=== PATIENT | male | born 1935 | race Caucasian/White ===

== ENCOUNTER → 2022-10-23 10:30 | Outpatient (REF) | payer OTHER, SELFPAY | LOC: WOUND 10:30 | PROVIDERS: ATTENDING PHYSICIAN Surgery; REFERRING PHYSICIAN Family Medicine | DX: T81.31XA Disruption of external operation (surgical) wound, not elsewhere classified, initial encounter (principal); L97.812 Non-pressure chronic ulcer of other part of right lower leg with fat layer exposed; I87.2 Venous insufficiency (chronic) (peripheral); C44.712 Basal cell carcinoma of skin of right lower limb, including hip; L98.8 Other specified disorders of the skin and subcutaneous tissue; Z98.890 Other specified postprocedural states; Z79.01 Long term (current) use of anticoagulants; X58.XXXA Exposure to other specified factors, initial encounter | CPT/HCPCS: 97597; 99212 ==

== ENCOUNTER 2023-03-07 15:25 | Emergency (ER) | payer OTHER, SELFPAY ==
[2023-03-07 15:30] VITALS: BP 134/59
[2023-03-07 16:12] VITALS: BMI 36.5
[2023-03-07 16:19] LABS: % Basophils 0.5 % (0-2); % Eosinophils 2.4 % (0-6); % Immature Granulocytes 0.2 % (0-0.5); % Lymphocytes 31.8 % (20.5-51.1); % Monocytes 7.6 % (1.7-9.3); % Neutrophils 57.5 % (42.2-75.2); Absolute Eosinophils 0.2 10^3/uL (0-0.7); Absolute Lymphocytes 2.7 10^3/uL (1.2-3.4); Absolute Monocytes 0.6 10^3/uL (0.1-0.6); Absolute Neutrophils 4.9 10^3/uL (1.4-6.5); Hematocrit 38.1 % (39.0-52.0); Hemoglobin 12.9 g/dL (13.0-18.0); Mean Corp Hgb Conc. 33.9 g/dL (33.0-37.0); Mean Corpuscular Hgb 33.2 pg (27.0-31.0); Mean Corpuscular Volume 97.9 fL (80.0-94.0); Mean Platelet Volume 10.4 fL (7.4-10.4); Nucleated Red Blood Cells % 0 % (-); Platelet Count 141 10^3/uL (130-400); Red Blood Cell Count 3.89 10^6/uL (4.70-6.10); White Blood Cell Count 8.4 10^3/uL (4.8-10.8)
[2023-03-07 16:22] LABS: Erythrocyte Sed Rate 20 mm/hour (0-20)
[2023-03-07 16:35] LABS: ALT (SGPT) 31 U/L (0-50); AST (SGOT) 47 U/L (17-59); Albumin 3.8 g/dl (3.5-5.0); Alkaline Phosphatase 105 U/L (38-126); Blood Urea Nitrogen 17 mg/dl (9-20); Calcium 8.7 mg/dl (8.4-10.2); Carbon Dioxide 30 mmol/L (22-30); Chloride 96 mmol/L (98-107); Estimated Creatinine Clearance 102 ml/min; Glucose 140 mg/dl (70-99); Sodium 136 mmol/L (135-145); Total Bilirubin 0.8 mg/dl (0.2-1.3); eGFR > 60.00
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
== END 2023-03-07 18:28 | disposition home or self-care (01) ==
LOC: EMR 15:25
PROVIDERS: EMERGENCY PHYSICIAN Emergency Medicine; FAMILY PHYSICIAN Family Medicine
DX: H53.8 Other visual disturbances (principal); I48.91 Unspecified atrial fibrillation; I11.0 Hypertensive heart disease with heart failure; I50.9 Heart failure, unspecified; R40.0 Somnolence; I25.10 Atherosclerotic heart disease of native coronary artery without angina pectoris; E78.00 Pure hypercholesterolemia, unspecified; E03.9 Hypothyroidism, unspecified; V89.2XXA Person injured in unspecified motor-vehicle accident, traffic, initial encounter; Z82.49 Family history of ischemic heart disease and other diseases of the circulatory system
CPT/HCPCS: 99284; 70450; 80053; 85025; 85652; 86140

== ENCOUNTER 2023-05-05 14:26 | Emergency (ER) | payer OTHER, SELFPAY ==
[2023-05-05 14:30] VITALS: BP 141/95
[2023-05-05 15:09] VITALS: BP 131/75; BMI 36.3
--- NOTE | 2023-05-05 15:23 | ED.GENMED ---
History of Present Illness
General
Chief Complaint: Nose Bleed
Source: patient and family
Time Seen by Provider: 05/05/23 15:03
Travel History
Have you had any contact with someone who has COVID-19?: No
Do you have any symptoms of coronavirus? Fever > 100 degrees, chills, cough, shortness of breath, sore throat, loss of taste or smell, muscle aches, or headache?: No
History of Present Illness
History of Present Illness:
This patient is an 87-year-old male presents emergency department complaints of right-sided nosebleed that started this morning, resolved about 2 hours, and then started again which prompted his visit here. Patient takes Eliquis as usual, was
restarted in February under doctors orders. He denies bleeding elsewhere. He has had nosebleeds in the past. He states that he thinks that today's nosebleed was precipitated by him picking his nose this morning. He denies dizziness, chest pain,
shortness of breath, abdominal pain, or other complaints.
Past History
Past History
ED Past Medical History: Arrthythmia, CAD, Cancer, HTN, Hypercholesterolemia, Hypothyroidism, Other and Other
ED Past Surgical History: Cardiac and Orthopedic
Social History
Tobacco: Non-smoker
Alcohol: Occasional
Drug: None
Living: alone
Family History
Family History: CAD
Phy Exam
Physical Exam
Physical Exam:
GENERAL: Alert , in no apparent distress
EYE: pupils equal and reactive
NECK: Supple, no significant adenopathy.
ENT: o/p clr, mmm, left nare/septum unremarkable, right septum with dried blood throughout, no active bleeding.
CARDIAC: Regular rate and rhythm .
LUNGS: Clear breath sounds bilaterally, no acute respiratory distress, no wheezes/rales/rhonchi
ABDOMEN: Soft, without focal tenderness, no r/g, no cvat
NEUROLOGICAL: Alert and oriented, no focal neuro deficits
SKIN: Warm and dry, skin intact.
MUSCULOSKELETAL: 1+ bilateral lower extremity edema, well perfused.
PSYCH: Normal and appropriate interaction.
Course
Vital Signs
Initial and Last Documented VS:
Initial Vital Signs
Temp Pulse Resp BP Pulse Ox
97.7 F 101 16 141/95 95
05/05/23 14:30 05/05/23 14:30 05/05/23 14:30 05/05/23 14:30 05/05/23 14:30
Last Documented Vital Signs
Temp Pulse Resp BP Pulse Ox
97.7 F 98 16 131/75 99
05/05/23 14:30 05/05/23 15:09 05/05/23 15:09 05/05/23 15:09 05/05/23 15:09
Procedures
Nosebleed
Drug treatment: Lidocaine and Epinephrine
Treatment: local pressure applied and Silver nitrate cautery
Post treatment bleeding: none- good control
Additional information:
PT GIVEN CLAMP, ADVISED RE:HOW TO MANAGE IF REBLEED AT HOME AND WHEN TO RTED.
*Critical Care Note
Total Time (30-74mins, 75-104mins- exclusive of procedures): Not Applicable
Update Note
Update Note:
Patient presents to the Emergency Department with ___nosebleed
Number and Complexity of Problems Addressed at the Encounter
� Chronic conditions affecting care:
� Acute Exacerbation and/or Progression of Chronic Illness:
� Differential Diagnosis includes: But not limited to abrasion, polyp, medication related bleeding, etc.
Amount and/or Complexity of Data to be Reviewed and Analyzed
� I performed an independent evaluation of and my interpretation is:
EKG:
CT:
Xrays:
Laboratory Studies:
Other:
� Review of other/old records reveals:
� Clinical information was obtained by an independent historian: Daughter who is at bedside
� Prescriptions/Medications Considered but not given:
� Further testing considered but not performed:
Risk of Complications and/or Morbidity or Mortality of Patient Management
� Social determinants of health affecting care:
� Discussion with other providers (PCP, Hospitalists, Consultants, etc):
� Escalation of care including admission/observation vs risk of discharge considered:
ED Attending Note
-
Portions of this chart may have been created with voice recognition software.� Occasional wrong word or��sound alike� substitutions may have occurred due to the inherent limitations of voice recognition software.
Discharge Plan
Departure
Patient Disposition: Home (Routine Discharge)
Date of Disposition: 05/05/23
Time of Disposition: 15:53
Patient with high blood pressure during this ER visit?: Yes
Condition: Good
Discharge Problem:
Epistaxis
Instructions: Nosebleeds (DC), BLOOD PRESSURE
Prescriptions:
No Action
losartan 50 MG tablet
50 mg PO DAILY
atorvastatin 40 MG tablet
40 mg PO HS
dofetilide 250 MCG capsule
250 mcg PO BID
tamsulosin 0.4 MG capsule
0.4 mg PO HS
amitriptyline 10 MG tablet
10 mg PO HS
levothyroxine 125 MCG tablet
125 mcg PO DAILY
ezetimibe 10 MG tablet
10 mg PO HS
celecoxib 200 MG capsule
200 mg PO DAILY
metoprolol succinate 50 MG tablet extended release 24 hr
50 mg PO BID
allopurinol 300 MG tablet
300 mg PO DAILY
cholecalciferol (vitamin D3) 2,000 UNITS tablet
2,000 units PO DAILY
dorzolamide (PF) 10 ML drops
1 drp BOTH EYES BID
Myrbetriq 50 MG tablet extended release 24 hr
50 mg PO HS
Eliquis 5 MG tablet
5 mg PO BID
miconazole nitrate [Miconazorb AF] 1 APPLIC powder
1 applic topical BIDPRN PRN (Reason: groin rash) 0RF
furosemide 20 mg Tablet
20 mg PO HS
Centrum Silver Tablet
1 tab PO DAILY
furosemide [Lasix] 20 mg tablet
60 mg PO DAILY 4 Days Qty: 12 0RF
Referrals:
Earl Macario MD [Family Provider] -
Activity Restrictions/Additional Instructions:
IF YOU DEVELOP RECURRENT BLEEDING AFTER 30 MINUTES OF WEARING THE CLAMP, FEVER, VOMITING, DIZZINESS, FURTHER BLEEDING, CHEST PAIN, TROUBLE BREATHING, OR OTHER WORRISOME SIGNS, GO TO THE ER IMMEDIATELY!
Interventions
Interventions:
*Risk Screen - Suicide Last Done: 05/05/23 14:30
*General Assessment Last Done: 05/05/23 14:30
*Neglect/Abuse Screening Last Done: 05/05/23 14:30
*ED COVID-19 Vaccine History Last Done: 05/05/23 15:09
ED-EENT Assessment Last Done: 05/05/23 15:09
== END 2023-05-05 16:08 | disposition home or self-care (01) ==
LOC: EMR 14:26
PROVIDERS: EMERGENCY PHYSICIAN Emergency Medicine; FAMILY PHYSICIAN Family Medicine; REFERRING PHYSICIAN Internal Medicine Cardiovascular Disease
DX: R04.0 Epistaxis (principal); I25.10 Atherosclerotic heart disease of native coronary artery without angina pectoris; I10 Essential (primary) hypertension; E78.00 Pure hypercholesterolemia, unspecified; E03.9 Hypothyroidism, unspecified; Z79.01 Long term (current) use of anticoagulants; Z88.5 Allergy status to narcotic agent; Z88.8 Allergy status to other drugs, medicaments and biological substances
CPT/HCPCS: 99283; 30901

== ENCOUNTER 2023-05-21 09:12 | Emergency (ER) | payer OTHER, SELFPAY ==
[2023-05-21 09:25] VITALS: BP 130/76
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
--- NOTE | 2023-05-21 10:34 | EDRN ---
Dr. Cuellar in room w/ pt.
[2023-05-21 10:54] VITALS: BP 115/72
[2023-05-21] MEDS: ULTRAM 50 MG PO (11:05)
--- NOTE | 2023-05-21 12:14 | EDRN ---
Dr. Cuellar in w/ pt and son at this time.
[2023-05-21 12:19] VITALS: BP 110/73
== END 2023-05-21 12:39 | disposition home or self-care (01) ==
LOC: EMR 09:12
PROVIDERS: EMERGENCY PHYSICIAN Emergency Medicine; FAMILY PHYSICIAN Family Medicine
DX: S20.219A Contusion of unspecified front wall of thorax, initial encounter (principal); W22.8XXA Striking against or struck by other objects, initial encounter; I25.10 Atherosclerotic heart disease of native coronary artery without angina pectoris; I10 Essential (primary) hypertension; E78.00 Pure hypercholesterolemia, unspecified; E03.9 Hypothyroidism, unspecified; Z82.49 Family history of ischemic heart disease and other diseases of the circulatory system
CPT/HCPCS: 99283; 71101

== ENCOUNTER 2023-08-07 17:07 | Inpatient (IN) | payer OTHER, SELFPAY ==
[2023-08-07] VITALS (8 sets, daily range): BP systolic 115–149; BP diastolic 63–89; BMI 36.6; BMI 36.5
[2023-08-07 13:37] LABS: % Basophils 0.3 % (0-2); % Eosinophils 1.8 % (0-6); % Immature Granulocytes 0.5 % (0-0.5); % Monocytes 8.1 % (1.7-9.3); % Neutrophils 54.3 % (42.2-75.2); Absolute Eosinophils 0.2 10^3/uL (0-0.7); Absolute Immature Granulocytes 0.1 10^3/uL (0-0.05); Absolute Lymphocytes 3.5 10^3/uL (1.2-3.4); Absolute Monocytes 0.8 10^3/uL (0.1-0.6); Absolute Neutrophils 5.5 10^3/uL (1.4-6.5); Hematocrit 35.3 % (39.0-52.0); Hemoglobin 11.8 g/dL (13.0-18.0); Mean Corp Hgb Conc. 33.4 g/dL (33.0-37.0); Mean Corpuscular Hgb 32.4 pg (27.0-31.0); Mean Platelet Volume 10.5 fL (7.4-10.4); Nucleated Red Blood Cells % 0 % (-); Platelet Count 114 10^3/uL (130-400); Red Blood Cell Count 3.64 10^6/uL (4.70-6.10); Red Cell Dist. Width 14.9 % (11.5-14.5); White Blood Cell Count 10.1 10^3/uL (4.8-10.8)
[2023-08-07 13:48] LABS: ALT (SGPT) 58 U/L (0-50); AST (SGOT) 41 U/L (17-59); Albumin 3.5 g/dl (3.5-5.0); Alkaline Phosphatase 53 U/L (38-126); Blood Urea Nitrogen 15 mg/dl (9-20); Calcium 8.4 mg/dl (8.4-10.2); Carbon Dioxide 28 mmol/L (22-30); Chloride 99 mmol/L (98-107); Glucose 201 mg/dl (70-99); Magnesium 2.2 mg/dl (1.6-2.3); Sodium 134 mmol/L (135-145); Total Bilirubin 0.8 mg/dl (0.2-1.3); Total Protein 5.7 g/dl (6.3-8.2); eGFR > 60.00
[2023-08-07 13:56] LABS: NT-proBNP 1540 pg/ml
--- NOTE | 2023-08-07 15:35 | ED.GENMED ---
History of Present Illness
General
Chief Complaint: Swelling
Source: patient
Exam Limitations: none
Time Seen by Provider: 08/07/23 12:35
Nursing documentation reviewed up to this point in time: agreed with
History of Present Illness
History of Present Illness:
88 y/o M with h/o afib s/p watchmann not anticoagulated, chf with preserved EF
on furosemide 80 mg once aday (he says he sometimes doens't take it if he is going out of his house, but hasn't missed doses within the week)
here with increassing edema in his abdomen and even a little in his face, some orthopnea and worsening on crhonic PND
he went to PCP and was sent here
viola is his landcare officer
no chest pain
has also gained 14 pounds in the past 2 weeks
Past History
Past History
ED Past Medical History: Arrthythmia, CAD, Cancer, HTN, Hypercholesterolemia, Hypothyroidism, Other and Other
ED Past Surgical History: Cardiac and Orthopedic
Social History
Tobacco: Non-smoker
Alcohol: Occasional
Drug: None
Living: alone
Family History
Family History: CAD
Review of Systems
Review of Systems
Allergies reviewed?: Yes
All Other Systems: Not applicable
Phy Exam
Physical Exam
Physical Exam:
GENERAL: Alert , in no apparent distress
EYE: pupils equal and reactive
NECK: Supple
ENT: o/p clr, mmm.
CARDIAC: Regular rate and rhythm .
trace edema in legs, wearss compressoin stockings
LUNGS: crackles b/l bases, no acute respiratory distress, no wheezes/rales/rhonchi
ABDOMEN: Soft, edema in his abdomen, nontender; no r/g, no cvat, normal bowel sounds
NEUROLOGICAL: Alert and oriented, no focal neuro deficits
SKIN: Warm and dry, skin intact.
MUSCULOSKELETAL: minimal edema, well perfused. neg shadia's sign
PSYCH: Normal and appropriate interaction.
Scores
Heart Failure Risk
Heart Failure Risk Score: Yes
History of Stroke or TIA: No
History of intubation for respiratory distress: No
Heart rate on ED arrival >/= 110: No
SaO2 <90% on arrival on room air: No
HR >/=110 during 3min walk test (or too ill to perform test): No
ECG has acute ischemic changes: No
Urea >/=12mmol/L (BUN 33.6mg/dL): No
Serum CO2>/=35mmol/L: No
Troponin I or T elevated to CO Level (0.4mg/dL): No
NT-proBNP >/=5,000ng/L (5,000pg/ml): No
HF Risk Score: 0
Admission Status: LOW RISK 2.8% Consider discharge to home with f/u visit to PCP/[facility] Worker
Course
Orders/Labs/Results
Orders:
Orders
08/07/23 13:03
Electrocardiogram (*1) Stat
Reason for Study: Other
Other Reason for Exam: chest pain
Cardiac Monitoring- Treatment ONCE
EKG- Treatment ONCE
CR Chest - 2 Views Urgent
Comment:
Reason For Exam: chf
08/07/23 13:29
Complete Blood Count/With Diff Urgent
Comprehensive Metabolic Panel Urgent
Magnesium Urgent
NT-proBNP Urgent
08/07/23 Dinner
Cholesterol Lowering
At Your Request: Full Participation
Fluid Restriction: 1500 mL/day (50 oz)
Cholesterol Lowering: Sodium, 2 Gram
08/07/23 15:37
Furosemide [Lasix] 60 mg IV NOW STA
08/07/23 15:47
Furosemide [Lasix] 80 mg IV NOW STA
08/07/23 16:20
CARDIOLOGY CONSULT Routine
Consulting Provider: Sabina Bryson
Was physician already notified: Yes
08/07/23 16:45
Admit/Transfer Patient As Directed
Co-Sign Provider:
Level of Care: Inpatient admission
Assign to:: Telemetry
Physician / Group: Cruzito/hospitalist
Diagnosis: acute CHF
Reason for Telemetry: Subacute Heart Failure
Date to Stop Telemetry: 08/09/23
Time to Stop Telemetry: 11:00
Reason for Hospitalization: acute CHF
Expected length of stay greater than two midnights?: Yes
ELOS- Estimated Length of Stay in days: 3
I certify the patient meets the requirements for IP care: Yes
08/07/23 16:47
Code Status As Directed
Resuscitation Status: Full Code
08/07/23 17:28
Procalcitonin Routine
PCT Algorithmm Indication: Respiratory
08/07/23 17:35
Benzonatate [Tessalon Perles] 100 mg PO TIDPRN PRN
Bisacodyl [Dulcolax] 10 mg PO DAILYPRN PRN
08/07/23 17:35
Echo 2D MMode Color/Doppler Routine
Reason for Study: SOB, PND
HF DIETARY CONSULT Routine
HF EDUCATOR CONSULT Routine
Comment:
Activity As Directed
Activity Level: As Tolerated
Intake/ Output As Directed
Frequency: Per unit guidelines
Patient Education As Directed
Type: CHF folder
Comment: give on admission. Document in Interdisciplinary Education record
Sleep Apnea Assessment by RN As Directed
Comment:
Physician Instructions:
Vital Signs As Directed
Frequency: Other
Additional Instructions:: Q12 or per unit guidelines if more frequent.
Weight As Directed
Frequency: Daily
Type of Scale: Standing Scale
Comment: Daily morning weight. If unable to stand, use balanced bed scale.
Weight As Directed
Frequency: Once
Type of Scale: Standing Scale
Comment: Upon Admission. If unable to stand, use balanced bed scale.
Pulse Ox/cont/shift [RESP] Routine
Quantity: 1
Special Instructions: Daily pulse oximetry at rest. If greater than 92% at rest also obtain pulse oximetry
while ambulating as tolerated.
DX Deep Vein Thrombosis Video Routine
08/07/23 17:56
Albuterol [ProAIR HFA INHALER] 2 puff INH R Q4HPRN PRN
08/07/23 18:00
Enoxaparin Sodium [Lovenox] 40 mg SC QPM
08/07/23 20:00
Celecoxib [Celebrex] 200 mg PO BID
Dofetilide [Tikosyn] 250 mcg PO BID
Metoprolol Xl [Toprol Xl] 50 mg PO BID
Tamsulosin [Flomax] 0.4 mg PO BID
08/07/23 22:00
Amitriptyline [Elavil] 10 mg PO HS
Atorvastatin [Lipitor] 40 mg PO HS
Ezetimibe [Zetia] 10 mg PO HS
Tolterodine Extended Release [Detrol LA] 4 mg PO HS
08/08/23 06:00
Basic Metabolic Panel IN AM
Complete Blood Count/No Diff IN AM
Magnesium IN AM
Levothyroxine [Synthroid] 125 mcg PO DAILY @ 0600
08/08/23 08:00
Allopurinol [Zyloprim] 300 mg PO DAILY
Furosemide [Lasix] 80 mg IV BID AT 0800,1600
Loratadine [Claritin] 10 mg PO DAILY
Losartan [Cozaar] 50 mg PO DAILY
08/09/23 06:00
Basic Metabolic Panel IN AM
Complete Blood Count/No Diff IN AM
Magnesium IN AM
08/09/23 11:00
DC Protocol for Telemetry ONCE
08/10/23 06:00
Basic Metabolic Panel IN AM
Complete Blood Count/No Diff IN AM
Magnesium IN AM
08/11/23 06:00
Basic Metabolic Panel IN AM
Complete Blood Count/No Diff IN AM
Magnesium IN AM
08/12/23 06:00
Basic Metabolic Panel IN AM
Complete Blood Count/No Diff IN AM
Magnesium IN AM
Abnormal Lab Results
08/07/23
13:29
RBC 3.64 L 10^6/uL
(4.70-6.10)
Hgb 11.8 L g/dL
(13.0-18.0)
Hct 35.3 L %
(39.0-52.0)
MCV 97.0 H fL
(80.0-94.0)
MCH 32.4 H pg
(27.0-31.0)
RDW 14.9 H %
(11.5-14.5)
Plt Count 114 L 10^3/uL
(130-400)
MPV 10.5 H fL
(7.4-10.4)
Abs Immat Gran (auto) 0.1 H 10^3/uL
(0-0.05)
Absolute Lymphs (auto) 3.5 H 10^3/uL
(1.2-3.4)
Absolute Monos (auto) 0.8 H 10^3/uL
(0.1-0.6)
Sodium 134 L mmol/L
(135-145)
Creatinine 0.4 L mg/dL
(0.7-1.3)
Glucose 201 H mg/dl
(70-99)
ALT 58 H U/L
(0-50)
Total Protein 5.7 L g/dl
(6.3-8.2)
08/07/23 13:29
08/07/23 13:29
Vital Signs
Initial and Last Documented VS:
Initial Vital Signs
Temp Pulse Resp BP Pulse Ox
97.8 F 74 16 142/69 93
08/07/23 12:29 08/07/23 12:29 08/07/23 12:29 08/07/23 12:29 08/07/23 12:29
Last Documented Vital Signs
Temp Pulse Resp BP Pulse Ox
98.4 F 104 16 149/85 94
08/07/23 17:59 08/07/23 17:59 08/07/23 17:59 08/07/23 17:59 08/07/23 17:59
MDM/Problems Addressed
Differential Diagnosis Includes:
chf exacerbation, pulm edema
MDM/Problems Addressed:
88 y/o M with h/o CHF on lasix 80 with preserved EF; afib s/p watchmann here with chf exac, weight gain in abdomen 14 pounds within the past 1-2 weeks, and sob last night; crackles lungs; didn't take his lasix today; cr normal; bnp 1500;
*Critical Care Note
Total Time (30-74mins, 75-104mins- exclusive of procedures): Not Applicable
ED Attending Note
-
Portions of this chart may have been created with voice recognition software.� Occasional wrong word or��sound alike� substitutions may have occurred due to the inherent limitations of voice recognition software.
Discharge Plan
Departure
Patient Disposition: Admit
Date of Disposition: 08/07/23
Time of Disposition: 15:23
Admit to: Telemetry
Presentation/result/management discussed w/ accepting MD/DO: Hospitalist
Patient with high blood pressure during this ER visit?: No
Condition: Fair
Covid-19: Not Applicable
Discharge Problem:
CHF (congestive heart failure)
Interventions
Interventions:
*Risk Screen - Suicide Last Done: 08/07/23 12:43
*General Assessment Last Done: 08/07/23 12:43
*Neglect/Abuse Screening Last Done: 08/07/23 12:43
*ED COVID-19 Vaccine History Last Done: 08/07/23 12:29
*Nursing Disposition Last Done: 08/07/23 17:45
ED- Cardiac Assessment Last Done: 08/07/23 13:25
ED- Pulmonary Assessment Last Done: 08/07/23 13:25
ED-Skin Assessment Last Done: 08/07/23 13:25
Discharge Date and Time
Discharge Date/Time: 08/07/23 17:45
[2023-08-07] MEDS: LASIX 80 MG IV (15:54)
--- NOTE | 2023-08-07 16:20 | HPS.HSE ---
Family Physician
-
Family Physician: Earl Macario
Chief Complaint
-
Shortness of breath, orthopnea, proximal nocturnal dyspnea, increasing weight and abdomen/leg swelling
History of Present Illness
HPI: 88 year old male with PMH CAD status post cardiac stent x 5 and bypass surgery, afib s/p watchman (not on anticoagulation), HFpEF, HTN, HLD, hypothyroidism, prostate cancer status post seed radiation, melanoma; p/w shortness of breath and
weight gain of 14 pounds over the past 2 weeks.
Patient takes Lasix 80 mg PRN (would occasionally miss dose if he is going out).
He also endorsed to cough, and was prescribed antibiotic cefuroxime (with Tessalon) by his PCP which he has completed for 5 days.
His main complaint is worsening dyspnea, and orthopnea. He has also noticed increased swelling of his abdomen and legs.
He was sent to the ER by his PCP.
Medical History
Past Medical History
Past Medical History: Reports Other
Additional Past Medical History:
CAD status post cardiac stent x 5 and bypass surgery
afib s/p watchman (not on anticoagulation)
HFpEF
HTN
HLD
hypothyroidism
prostate cancer status post seed radiation
melanoma
Past Surgical History: Reports Other
Additional Past Surgical History:
CABG
cardiac stents x5
R eye stent
Knee replacement
Left hip hemiarthroplasty
Social History
Tobacco: Non-smoker
Alcohol: Daily (1 glass of wine every night)
Family History
Family History: Not pertinent
Allergies / Home Medications
Allergies reflects when Allergies were last updated in [facility].
Home Medications with original date entered in [facility]
Allergy/Medication List:
Allergies
Allergy/AdvReac Type Severity Reaction Status Date / Time
loteprednol [From Lotemax] Allergy Unknown Unknown Verified 08/07/23 12:30
morphine AdvReac Severe Hallucinati Verified 08/07/23 12:30
ons
Home Medications
allopurinol 300 mg tablet 300 mg PO DAILY Gout 01/21/21
amitriptyline 10 mg tablet 10 mg PO HS Mental Health/Anxiety 01/21/21
atorvastatin 40 mg tablet 40 mg PO HS High cholesterol 01/21/21
celecoxib 200 mg capsule 200 mg PO BID Pain 01/21/21
dofetilide 250 mcg capsule 250 mcg PO BID Arrhythmia 01/21/21
ezetimibe 10 mg tablet 10 mg PO HS High cholesterol 01/21/21
levothyroxine 125 mcg tablet 125 mcg PO DAILY Thyroid 01/21/21
losartan 50 mg tablet 50 mg PO DAILY Blood pressure 01/21/21
metoprolol succinate 50 mg tablet,extended release 24 hr 50 mg PO BID Blood pressure 01/21/21
tamsulosin 0.4 mg capsule 0.4 mg PO BID Urinary issue 01/21/21
mirabegron 50 mg tablet,extended release 24 hr (Myrbetriq) 50 mg PO HS Urinary issue 05/31/21
albuterol 90 mcg-budesonide 80 mcg/actuation HFA aerosol inhaler (Airsupra) 2 inh inhalation R Q4HPRN PRN sob 08/07/23
benzonatate 100 mg capsule 100 mg PO TIDPRN PRN cough 08/07/23
bisacodyl 5 mg tablet,delayed release (Dulcolax (bisacodyl)) 10 mg PO DAILYPRN PRN constipation 08/07/23
cefuroxime axetil 500 mg tablet 500 mg PO BID 08/07/23
loratadine 10 mg tablet (Claritin) 10 mg PO DAILY 08/07/23
Review of Systems
-
Respiratory: Reports See HPI, Cough and Trouble Breathing
Cardiac: Denies Chest Pain
Physical Exam
Vital Signs
Vital Signs
Temp Pulse Resp BP Pulse Ox
36.6 C 85 23 129/86 95
08/07/23 12:29 08/07/23 16:00 08/07/23 16:00 08/07/23 16:00 08/07/23 16:00
Physical Exam
General: Well Developed, Well Nourished, No Apparent Distress, Comfortable and Conversant
HEENT: NormoCephalic, Moist mucous membranes, Atraumatic, Nose Appears Normal and Ears Appear Normal
Respiratory: Clear and Non Labored Respirations; No Crackles or Accessory Resp Muscle Use
Cardiac: S1/S2 and Irregular Rhythm; No Murmur or Rub
GI: Soft, Non Tender, Non Distended and Normal Bowel Sounds; No Organomegaly
Rectal: Deferred by Provider
Musculoskeletal: No Clubbing, No Cyanosis, Edema, Left Lower Extremity and Edema, Right Lower Extremity
Skin: No Rash
Neuro: Awake, Alert and Oriented
Psych: Calm and Intact Judgment/Insight
Laboratory Results
-
08/07/23 13:29
08/07/23 13:29
Laboratory Results
Total Bilirubin 0.8 mg/dl (0.2-1.3) 08/07/23 13:29
AST 41 U/L (17-59) 08/07/23 13:29
ALT 58 U/L (0-50) H 08/07/23 13:29
Alkaline Phosphatase 53 U/L (38-126) 08/07/23 13:29
Data Reviewed
-
Diagnostic Radiology: Image Personally Visualized and interpreted and Report Reviewed by me
Lab Data: Labs Reviewed by me
Impression/Plan
-
HPI: 88 year old male with PMH CAD status post cardiac stent x 5 and bypass surgery, afib s/p watchman (not on anticoagulation), HFpEF, HTN, HLD, hypothyroidism, prostate cancer status post seed radiation, melanoma; p/w shortness of breath and
weight gain of 14 pounds over the past 2 weeks.
Patient takes Lasix 80 mg PRN (would occasionally miss dose if he is going out).
He also endorsed to cough, and was prescribed antibiotic cefuroxime (with Tessalon) by his PCP which he has completed for 5 days.
His main complaint is worsening dyspnea, and orthopnea. He has also noticed increased swelling of his abdomen and legs.
He was sent to the ER by his PCP.
A/P:
# Acute on chronic heart failure with preserved ejection fraction
BNP 1540
Continue Lasix, will use IV 60 mg twice daily during hospital stay. Monitor daily weight
Last echo from 2021: EF 55-60%. Moderate mitral stenosis, Moderate mitral regurgitation.
Check updated echo
Cardiology consult
Check procalcitonin, of note patient has completed antibiotic cefuroxime for 5 days
# afib s/p watchman (not anticoagulated)
# HTN
# HLD
# CAD status post cardiac stent x 5 and bypass surgery
# hypothyroidism
Continue prior to admission Synthroid
# h/o prostate cancer status post seed radiation
# h/o melanoma on chest
DVT ppx:Lovenox SQ
FC
--- NOTE | 2023-08-07 17:06 | CON.CAR ---
Addendum entered and electronically signed by Sabina Bryson MD 08/07/23 21:01:
I saw and examined the patient.
The Automation Operator's note was reviewed and I agree with the note.
Comment: Exam cw increased volume and weight increased by report 14 #.
He has prior normal LVEF with HFpEF. Decompensation may be in part related to increased fluid intake (warm weather and recently on vacation without air conditioning). He also has been in afib for 8 days which may be exacerbated by increased volume
or the cause of increased volume. Last RANDALL 2021 with ALBA not fully excluded with small residual flow.
Plan:
-Diurese
-Follow renal function and electrolytes
-Check Echo
-Dw Electrophysiology best way to approach CV given last RANDALL. Will need to determine patient's candidacy for short term OAC (will review outpt records).
-HF teaching/nutrition
Original Note:
Consultation
Consultation Request
Date/Time Consultation Requested: 08/07/23
Date/Time Consultation Performed: 08/07/23
Requesting Provider: Thor HOLLINS in ER
Performing Provider: Dr. Sabina Bryson
Reason for Consultation: SOB, acute HF
Medical History
-
History of Present Illness:
Patient came to ER today with complaints of increasing cough and shortness of breath, he is being admitted with heart failure and cardiology has been consulted. Patient's daughter is an RN who works in [employer] at . Patient and daughter report
symptoms of cough and increasing shortness of breath starting about 1 week ago. Patient was initially treated with antibiotics and cough suppressants by his PCP and while there was some initial improvement, he then felt worse and came to ER
today. He thinks his weight is up about 14 pounds. He has increased abdominal girth and says that he generally holds onto fluid in his abdomen. He has increasing cough and shortness of breath. He has not been skipping any of his Lasix 80 mg
daily doses. He has not noticed any palpitations but does have a history of paroxysmal atrial fibrillation with a burden of 5% by last device check in our office on 06/26/2023. He is in atrial fibrillation in the ER now.
PMH:
Chronic HFpEF
Paroxysmal Afib
Chronic Tikosyn therapy
Not chronically anticoagulated due to Watchman in place
s/p Watchman implant 06/13/21
s/p Medtronic PPM implant 2017
h/o prostate CA, s/p prostatectomy and radiation 2006
CAD, CABG x5 1995
HTN
HLD
HOWARD/CPAP
BPH
Hypothyroidism
Past Medical History
Past Medical History: Other (in HPI)
Past Surgical History: Cardiac (ABG, Medtronic PPM, Watchman device), Orthopedic, Urological (prostatectomy) and Other (partial thyroidectomy)
Social History
Tobacco: Non-Smoker
Alcohol: Occasional
Drug: None
Personal:
Living: Alone
Family History
Family History: CAD and Cancer
Allergies / Home Medications
Allergy/AdvReac Type Severity Reaction Status Date / Time
loteprednol [From Lotemax] Allergy Unknown Unknown Verified 08/07/23 12:30
morphine AdvReac Severe Hallucinati Verified 08/07/23 12:30
ons
�Medication �Instructions �Recorded �Confirmed �Type
allopurinol 300 mg tablet 300 mg PO DAILY Gout 01/21/21 08/07/23 History
amitriptyline 10 mg tablet 10 mg PO HS Mental Health/Anxiety 01/21/21 08/07/23 History
atorvastatin 40 mg tablet 40 mg PO HS High cholesterol 01/21/21 08/07/23 History
celecoxib 200 mg capsule 200 mg PO BID Pain 01/21/21 08/07/23 History
dofetilide 250 mcg capsule 250 mcg PO BID Arrhythmia 01/21/21 08/07/23 History
ezetimibe 10 mg tablet 10 mg PO HS High cholesterol 01/21/21 08/07/23 History
levothyroxine 125 mcg tablet 125 mcg PO DAILY Thyroid 01/21/21 08/07/23 History
losartan 50 mg tablet 50 mg PO DAILY Blood pressure 01/21/21 08/07/23 History
metoprolol succinate 50 mg 50 mg PO BID Blood pressure 01/21/21 08/07/23 History
tablet,extended release 24 hr
tamsulosin 0.4 mg capsule 0.4 mg PO BID Urinary issue 01/21/21 08/07/23 History
mirabegron 50 mg tablet,extended 50 mg PO HS Urinary issue 05/31/21 08/07/23 History
release 24 hr (Myrbetriq)
albuterol 90 mcg-budesonide 80 2 inh inhalation R Q4HPRN PRN sob 08/07/23 08/07/23 History
mcg/actuation HFA aerosol inhaler
(Airsupra)
benzonatate 100 mg capsule 100 mg PO TIDPRN PRN cough 08/07/23 08/07/23 History
bisacodyl 5 mg tablet,delayed 10 mg PO DAILYPRN PRN constipation 08/07/23 08/07/23 History
release (Dulcolax (bisacodyl))
cefuroxime axetil 500 mg tablet 500 mg PO BID 08/07/23 08/07/23 History
loratadine 10 mg tablet (Claritin) 10 mg PO DAILY 08/07/23 08/07/23 History
Review of Systems
-
History Source: Patient and Family (daughter who is an RN at and his niece in room helping with HPI)
All other systems: Negative unless noted
Physical Exam
Vital Signs
Temp Pulse Resp BP Pulse Ox
97.8 F 85 23 129/86 95
08/07/23 12:29 08/07/23 16:00 08/07/23 16:00 08/07/23 16:00 08/07/23 16:00
GEN: NAD. AAOx3
HEENT: EOMI, MMM
LUNGS: CTA B/L, no wheezes or rales
CV: Reg, S1/S2, no murmur
ABD: soft, BS+, NT, ND
EXT: Wearing B/L compression knee high socks. Trace B/L LE edema. No clubbing, cyanosis or lesions B/L.
NEURO: Gross non-focal
SKIN: Warm, dry and pink. No rash
Lab Results
08/07/23 13:29
08/07/23 13:29
[id number]-[id number] Pept 1540 pg/ml 08/07/23 13:29
Impression / Plan
-
PCP: Earl Macario MD
CDY: [place] Bryson MD
Impression:
Acute HFpEF
Persistent Afib
in Afib since 07/30/23 according to device check 08/07/23
Chronic Tikosyn therapy
Not chronically anticoagulated due to Watchman in place
s/p Watchman implant 06/13/21
s/p Medtronic PPM implant 2017
h/o prostate CA, s/p prostatectomy and radiation 2006
CAD, CABG x5 1995
HTN
HLD
HOWARD/CPAP
BPH
Hypothyroidism
RANDALL 09/21/2021: EF 55 to 60%, mild to moderate mitral stenosis with moderate MR, watchman in place without device related thrombus and there is a small 3 mm leak that is best seen at 135 and 0 degrees
Plan:
-Patient came to ER today with complaints of increasing cough and shortness of breath, he is being admitted with heart failure and cardiology has been consulted. Patient's daughter is an RN who works in [employer] at . Patient and daughter report
symptoms of cough and increasing shortness of breath starting about 1 week ago. Patient was initially treated with antibiotics and cough suppressants by his PCP and while there was some initial improvement, he then felt worse and came to ER
today. He thinks his weight is up about 14 pounds. He has increased abdominal girth and says that he generally holds onto fluid in his abdomen. He has increasing cough and shortness of breath. He has not been skipping any of his Lasix 80 mg
daily doses. He has not noticed any palpitations but does have a history of paroxysmal atrial fibrillation with a burden of 5% by last device check in our office on 06/26/2023. He is in atrial fibrillation in the ER now.
-ECG reviewed by me shows Afib. [facility] transmission performed by me shows persistent Afib for the last 8 days. Prior to that patient had been drinking more fluids and so HF might have precipitated recurrence of Afib. Regardless will
continue usual dose of Tikosyn 250 mcg q 12 hours and Toprol XL 50 mg BID.
-Patient is not anticoagulated due to Watchman in place. 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 It is not clear if the patient would be able to tolerate short-term OAC if needed for possible CV.
-Weight is up 14 lbs per patient. Lasix 60 mg IV BID ordered for now. Patient was taking Lasix 80 mg PO daily prior to admission. Follow weights and Cre.
-Recheck echo, last echo was post-Watchman RANDALL in 09/2021
-
[2023-08-07 18:04] LABS: Procalcitonin < 0.05 ng/ml (0.0-0.25)
[2023-08-07] MEDS: LOVENOX 40 MG SC (18:38)
[2023-08-07] MEDS: FLOMAX 0.400000000000000022 MG PO (19:48)
[2023-08-07] MEDS: TOPROL XL 50 MG PO (19:48)
[2023-08-07] MEDS: CELEBREX 200 MG PO (19:49)
[2023-08-07] MEDS: TIKOSYN 250 MCG PO (19:57)
[2023-08-07] MEDS: DETROL LA 4 MG PO (23:03)
[2023-08-07] MEDS: ELAVIL 10 MG PO (23:05)
[2023-08-07] MEDS: LIPITOR 40 MG PO (23:05)
[2023-08-07] MEDS: ZETIA 10 MG PO (23:05)
[2023-08-08 02:55] VITALS: BP 114/63
[2023-08-08 06:00] VITALS: BMI 36.0
[2023-08-08] MEDS: SYNTHROID 200 MCG PO (06:21)
[2023-08-08 06:27] LABS: Hematocrit 34.8 % (39.0-52.0); Hemoglobin 11.7 g/dL (13.0-18.0); Mean Corp Hgb Conc. 33.6 g/dL (33.0-37.0); Mean Corpuscular Hgb 32.6 pg (27.0-31.0); Mean Corpuscular Volume 96.9 fL (80.0-94.0); Platelet Count 128 10^3/uL (130-400); Red Blood Cell Count 3.59 10^6/uL (4.70-6.10); White Blood Cell Count 10.5 10^3/uL (4.8-10.8)
[2023-08-08 06:51] LABS: Blood Urea Nitrogen 15 mg/dl (9-20); Calcium 8.6 mg/dl (8.4-10.2); Carbon Dioxide 28 mmol/L (22-30); Chloride 100 mmol/L (98-107); Estimated Creatinine Clearance 99 ml/min; Glucose 156 mg/dl (70-99); Magnesium 2.1 mg/dl (1.6-2.3); Potassium 3.7 mmol/L (3.5-5.1); Sodium 136 mmol/L (135-145); eGFR > 60.00
[2023-08-08 07:00] VITALS: BP 143/76
[2023-08-08] MEDS: LASIX 80 MG IV ×2 (07:48→15:14)
[2023-08-08] MEDS: COZAAR 50 MG PO (07:49)
[2023-08-08] MEDS: TIKOSYN 250 MCG PO ×2 (07:49→19:35)
[2023-08-08] MEDS: CLARITIN 10 MG PO (07:49)
[2023-08-08] MEDS: FLOMAX 0.400000000000000022 MG PO ×2 (07:49→19:35)
[2023-08-08] MEDS: CELEBREX 200 MG PO ×2 (07:50→19:35)
[2023-08-08] MEDS: TOPROL XL 50 MG PO ×2 (07:50→19:35)
[2023-08-08] MEDS: ZYLOPRIM 300 MG PO (07:50)
--- NOTE | 2023-08-08 08:48 | W.PN.CARDCBS ---
Addendum entered and electronically signed by Andrew Ortiz MD 08/08/23 13:20:
I saw and examined the patient.
The Grad Intern's note was reviewed and I agree with the note.
Comment:
GEN: No distress, awake, Ox3
HEENT: supple, anicteric, mmm
LUNGS: scatt rhonchi
CV: Irreg, S1/S2, / syst LSB, S4+
ABD: soft, BS+, NT/ND
EXT: trace edema
NEURO: Gross non-focal
SKIN: No rash
plan:
He remains in congestive heart failure. Will continue Lasix 60 mg IV twice daily. He is diuresing and weight is improved.
We discussed treatment options including initiation of anticoagulation with RANDALL cardioversion and a short course of anticoagulation. He is very concerned about ocular bleeding as he does already have vision loss in his 1 eye. We agreed that we
would continue with a rate control strategy for now and treat his congestive heart failure.
He can further discuss rhythm control options with Dr. Bryson as an outpatient after diuresis.
His blood pressure is overall stable. Continue Toprol and Cozaar
I would continue the Tikosyn for now, however if when he returns for follow-up he remains in A-fib I will consider stopping the Tikosyn as an outpatient.
Continue medical therapy for his coronary artery disease with metoprolol, atorvastatin, and Zetia.
Original Note:
Today's Communication / Plan
-
Cont Lasix 60 mg IV BID diuresis
Patient is concerned about bleeding risk if rhythm control strategy is used
Impression / Plan
-
PCP: Earl Macario MD
CDY: [place] Bryson MD
Impression:
Acute HFpEF
Persistent Afib
in Afib since 07/30/23 according to device check 08/07/23
Chronic Tikosyn therapy
Not chronically anticoagulated due to Watchman in place
s/p Watchman implant 06/13/21
s/p Medtronic PPM implant 2017
h/o prostate CA, s/p prostatectomy and radiation 2006
CAD, CABG x5 1995
HTN
HLD
HOWARD/CPAP
BPH
Hypothyroidism
RANDALL 09/21/2021: EF 55 to 60%, mild to moderate mitral stenosis with moderate MR, watchman in place without device related thrombus and there is a small 3 mm leak that is best seen at 135 and 0 degrees
Echo 08/08/23: Study pending
Plan:
-Weight is down 4 lbs overnight with Lasix 80 mg IV BID. Patient was taking Lasix 80 mg PO daily prior to admission.
-Cre stable at 0.5.
-Remains in Afib with controlled ventricular response on his usual doses of Tikosyn 250 mcg q 12 hours and Toprol XL 50 mg BID.
-Afib has been persistent for 8 days prior to admission. Afib burden prior to recent recurrence was 5%. Patient has a Watchman in place and there is a small 3 mm leak. If rhythm control was desired then patient would need RANDALL/CV and 4 weeks of OAC
afterwards. 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 Patient says he would rather have a
stroke and then restart OAC and risk going blind in his right eye. 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 Will review with patient's daughter.
HPI: Patient came to ER today with complaints of increasing cough and shortness of breath, he is being admitted with heart failure and cardiology has been consulted. Patient's daughter is an RN who works in [employer] at . Patient and daughter
report symptoms of cough and increasing shortness of breath starting about 1 week ago. Patient was initially treated with antibiotics and cough suppressants by his PCP and while there was some initial improvement, he then felt worse and came to
ER today. He thinks his weight is up about 14 pounds. He has increased abdominal girth and says that he generally holds onto fluid in his abdomen. He has increasing cough and shortness of breath. He has not been skipping any of his Lasix 80 mg
daily doses. He has not noticed any palpitations but does have a history of paroxysmal atrial fibrillation with a burden of 5% by last device check in our office on 06/26/2023. He is in atrial fibrillation in the ER now.
Progress Note - Java Analyst
Subjective
Date of Service: August 08, 2023
He is less bloated
Objective
Labs:
08/08/23 06:08
08/08/23 06:08
Labs
Hgb 11.7 g/dL (13.0-18.0) L 08/08/23 06:08
Hct 34.8 % (39.0-52.0) L 08/08/23 06:08
Plt Count 128 10^3/uL (130-400) L 08/08/23 06:08
Sodium 136 mmol/L (135-145) 08/08/23 06:08
Potassium 3.7 mmol/L (3.5-5.1) 08/08/23 06:08
BUN 15 mg/dl (9-20) 08/08/23 06:08
Creatinine 0.5 mg/dL (0.7-1.3) L 08/08/23 06:08
Glucose 156 mg/dl (70-99) H 08/08/23 06:08
Vital Signs and I&O:
Vital Signs
Temp Pulse Resp BP Pulse Ox
97.4 F 60 18 143/76 95
08/08/23 07:00 08/08/23 07:48 08/08/23 07:00 08/08/23 07:48 08/08/23 07:00
Vital Signs
Temp Pulse Resp BP Pulse Ox
97.4 F 60 18 143/76 95
08/08/23 07:00 08/08/23 07:48 08/08/23 07:00 08/08/23 07:48 08/08/23 07:00
Intake & Output
08/06/23 08/07/23 08/08/23 08/09/23
06:59 06:59 06:59 06:59
Intake Total 240 / 240
Output Total 2650 / 2650
Balance -2410 / -2410
Physical Exam
Physical Exam
GEN: NAD. AAOx3
HEENT: MMM
LUNGS: No audible wheeze
CV: Afib on tele
ABD: ND
EXT: Trace B/L LE edema.
NEURO: Gross non-focal
SKIN: Warm, dry and pink. No rash
--- NOTE | 2023-08-08 09:41 | W.PN.HOSP.TC ---
Today's Communication/Plan
-
see A/P
Assessment / Plan
Assessment / Plan
HPI: 88 year old male with PMH CAD status post cardiac stent x 5 and bypass surgery, afib s/p watchman (not on anticoagulation), HFpEF, HTN, HLD, hypothyroidism, prostate cancer status post seed radiation, melanoma; p/w shortness of breath and
weight gain of 14 pounds over the past 2 weeks.
Patient takes Lasix 80 mg PRN (would occasionally miss dose if he is going out).
He also endorsed to cough, and was prescribed antibiotic cefuroxime (with Tessalon) by his PCP which he has completed for 5 days.
His main complaint is worsening dyspnea, and orthopnea. He has also noticed increased swelling of his abdomen and legs.
He was sent to the ER by his PCP.
A/P:
# Acute on chronic heart failure with preserved ejection fraction
BNP 1540
Continue Lasix 80 mg IV BID during hospital stay (CARDIOLOGY TECH PO 80 mg daily). Monitor daily weight
Last echo from 2021: EF 55-60%. Moderate mitral stenosis, Moderate mitral regurgitation.
Check updated echo
Cardiology consulted
procalcitonin neg (of note, patient just completed antibiotic cefuroxime for 5 days CARDIOLOGY TECH)
# Persistent afib
# s/p watchman
not on anticoagulation
Card following
# HTN
Cont CARDIOLOGY TECH Losartan, Toprol
# HLD
Statin
# CAD status post cardiac stent x 5 and bypass surgery
# hypothyroidism
Continue prior to admission Synthroid
# h/o prostate cancer status post seed radiation
# h/o melanoma on chest
DVT ppx:Lovenox SQ
FC
DW Card
Anticipated Discharge: > 48 hours
Subjective/Interval History
-
Date of Service: August 08, 2023
Objective Data
-
Labs:
Laboratory Results
08/08/23
06:08
WBC 10.5
Hgb 11.7 L
Hct 34.8 L
Plt Count 128 L
Sodium 136
Potassium 3.7
Chloride 100
Carbon Dioxide 28
BUN 15
Creatinine 0.5 L
Glucose 156 H
Calcium 8.6
Vital Signs:
Vital Signs
Temp Pulse Resp BP Pulse Ox
36.3 C 60 18 143/76 95
08/08/23 07:00 08/08/23 07:48 08/08/23 07:00 08/08/23 07:48 08/08/23 07:00
I&O
08/07/23 08/08/23 08/09/23
06:59 06:59 06:59
Intake Total 240 / 240
Output Total 2650 / 2650
Balance -2410 / -2410
Review of Systems
-
All other systems: Reviewed and negative
Physical Exam
-
General: Well Developed, Well Nourished, No Apparent Distress, Comfortable and Conversant; Negative Respiratory Distress
HEENT: Normocephalic, Atraumatic, Nose Appears Normal and Ears Appear Normal; Negative Oxygen
Respiratory: Clear to Auscultation and Non Labored Respirations; Negative Accessory Resp Muscle Use
Cardiac: Regular Rhythm and S1/S2
GI: Soft, Nontender, Normal Bowel Sounds and Distended (mild)
Musculoskeletal: Negative Edema, Right Lower Extrem (much resolved) or Edema, Left Lower Extrem (much resolved)
Skin: Warm and Dry
Neuro: Awake, Alert, Oriented and AO x 3
Psych: Calm and Intact Judgement/Insight
Data Reviewed
-
Diagnostic Radiology: Image personally visualized and interpreted and Report Reviewed by me
Labs: Labs Reviewed by me
--- NOTE | 2023-08-08 10:30 | CARDSERVLU ---
Echocardiogram with Lumason completed after protocol screening completed. Allergies verified.
Patent IV site: ___R AC__
IV site flushed with 0.9% NaCl pre and post administration.
Diluted bolus method utilized to enhance visualization of ventricular yepez.
Total volume given: __2.5__ mL
Patient tolerated all procedures well without complications.
[2023-08-08 11:00] VITALS: BP 123/66
--- NOTE | 2023-08-08 14:57 | CM ---
Met with patient at the bedside; initial assessment completed
Pharmacy verified: [facility], [address], [place], [place]
Patient lives alone in a 2 story home; 2 steps to enter; home has a powder room on the 1st floor; Elevator access to 2nd floor bedroom and bathroom; bath has stall shower w/grab bar and seat
PLOF: patient reported that he has a [employer] 03/09 to assist with personal care (does not recall name of agency); his vision is impaired; patient ambulates with a cane or walker; one of his daughters is a Nurse and works at ; she manages his [employer];
[employer] administers his medication. Patient no longer driving; prior to admission he was going to the gym 2 times a week; has a service that cleans his home
SNF utilization history: stay @ [facility] a couple of years ago
Transportation: family will provide transport home
Plan: Discharge to home w/assistance from [employer] when medically stable; CM will continue to monitor for DC needs
[2023-08-08 15:00] VITALS: BP 120/58
[2023-08-08] MEDS: LOVENOX 40 MG SC (16:31)
[2023-08-08 19:11] VITALS: BP 129/62
[2023-08-08] MEDS: DESENEX/MITRAZOL/ZEASORB 1 APPLIC TOPICAL (19:36)
[2023-08-08] MEDS: ELAVIL 10 MG PO (21:16)
[2023-08-08] MEDS: DETROL LA 4 MG PO (21:16)
[2023-08-08] MEDS: LIPITOR 40 MG PO (21:16)
[2023-08-08] MEDS: ZETIA 10 MG PO (21:16)
[2023-08-08 23:07] VITALS: BP 126/71
[2023-08-09] VITALS (9 sets, daily range): BP systolic 101–141; BP diastolic 57–81; PULSE 74; O2SAT 97; BMI 35.2
[2023-08-09] MEDS: SYNTHROID 200 MCG PO (06:02)
[2023-08-09 06:35] LABS: Hematocrit 36.1 % (39.0-52.0); Hemoglobin 12.3 g/dL (13.0-18.0); Mean Corp Hgb Conc. 34.1 g/dL (33.0-37.0); Mean Corpuscular Hgb 32.5 pg (27.0-31.0); Mean Corpuscular Volume 95.5 fL (80.0-94.0); Mean Platelet Volume 9.8 fL (7.4-10.4); Platelet Count 132 10^3/uL (130-400); Red Blood Cell Count 3.78 10^6/uL (4.70-6.10); Red Cell Dist. Width 14.7 % (11.5-14.5); White Blood Cell Count 10.7 10^3/uL (4.8-10.8)
[2023-08-09 06:51] LABS: ALT (SGPT) 56 U/L (0-50); AST (SGOT) 40 U/L (17-59); Albumin 3.7 g/dl (3.5-5.0); Alkaline Phosphatase 56 U/L (38-126); Blood Urea Nitrogen 17 mg/dl (9-20); Calcium 8.6 mg/dl (8.4-10.2); Carbon Dioxide 30 mmol/L (22-30); Chloride 97 mmol/L (98-107); Direct Bilirubin 0.3 mg/dl (0.0-0.4); Estimated Creatinine Clearance 98 ml/min; Glucose 154 mg/dl (70-99); Potassium 3.8 mmol/L (3.5-5.1); Sodium 135 mmol/L (135-145); Total Bilirubin 0.9 mg/dl (0.2-1.3); Total Protein 6.1 g/dl (6.3-8.2); eGFR > 60.00
[2023-08-09] MEDS: FLOMAX 0.400000000000000022 MG PO ×2 (07:59→20:52)
[2023-08-09] MEDS: CELEBREX 200 MG PO ×2 (07:59→20:53)
[2023-08-09] MEDS: CLARITIN 10 MG PO (07:59)
[2023-08-09] MEDS: COZAAR 50 MG PO (08:00)
[2023-08-09] MEDS: DESENEX/MITRAZOL/ZEASORB 1 APPLIC TOPICAL ×2 (08:01→20:55)
[2023-08-09] MEDS: LASIX 80 MG IV ×2 (08:02→16:12)
[2023-08-09] MEDS: TIKOSYN 250 MCG PO ×2 (08:03→20:52)
[2023-08-09] MEDS: ZYLOPRIM 300 MG PO (08:03)
[2023-08-09] MEDS: TOPROL XL 50 MG PO ×2 (08:03→20:53)
--- NOTE | 2023-08-09 08:39 | W.PN.HOSP.TC ---
Today's Communication/Plan
-
see A/P
Assessment / Plan
Assessment / Plan
HPI: 88 year old male with PMH CAD status post cardiac stent x 5 and bypass surgery, afib s/p watchman (not on anticoagulation), HFpEF, HTN, HLD, hypothyroidism, prostate cancer status post seed radiation, melanoma; p/w shortness of breath and
weight gain of 14 pounds over the past 2 weeks.
Patient takes Lasix 80 mg PRN (would occasionally miss dose if he is going out).
He also endorsed to cough, and was prescribed antibiotic cefuroxime (with Tessalon) by his PCP which he has completed for 5 days.
His main complaint is worsening dyspnea, and orthopnea. He has also noticed increased swelling of his abdomen and legs.
He was sent to the ER by his PCP.
A/P:
# Acute on chronic heart failure with preserved ejection fraction
BNP 1540
Continue Lasix 80 mg IV BID during hospital stay (UNDER CUTTING MACHINE OPERATOR PO 80 mg daily). Monitor daily weight.
Can plan to DC on oral Lasix 80 BID upon discharge.
Last echo from 2021: EF 55-60%. Moderate mitral stenosis, Moderate mitral regurgitation.
Updated echo: LVEF has decreased from 55% to 50% and there are now inferoapical wall motion abnormalities. Stage II diastolic dysfunction. The mitral valve is overall about the same/Mild-moderate mitral stenosis. The PA pressures increased from 30
to 45-50 mmHg.
Cardiology on board
procalcitonin neg (of note, patient just completed antibiotic cefuroxime for 5 days UNDER CUTTING MACHINE OPERATOR)
# Persistent afib
# s/p watchman
not on anticoagulation
Card discussed option of anticoagulation with RANDALL cardioversion. Pt is very concerned about ocular bleeding with anticoagulation as he already has vision loss in 1 eye.
He can further discuss rhythm control options with Dr. Bryson as an outpatient after diuresis.
Cont UNDER CUTTING MACHINE OPERATOR Tikosyn for now
Cont Toprol
# HTN
Cont UNDER CUTTING MACHINE OPERATOR Losartan, Toprol
# HLD
Statin
# CAD status post cardiac stent x 5 and bypass surgery
# hypothyroidism
Continue prior to admission Synthroid
# h/o prostate cancer status post seed radiation
# h/o melanoma on chest
# Glaucoma R eye
regresh eye drop
Outpt claim representative eval
DVT ppx:Lovenox SQ
FC
DW RN
Anticipated Discharge: Within 24 hours
Subjective/Interval History
-
Date of Service: August 09, 2023
Objective Data
-
Labs:
Laboratory Results
08/09/23
06:08
WBC 10.7
Hgb 12.3 L
Hct 36.1 L
Plt Count 132
Sodium 135
Potassium 3.8
Chloride 97 L
Carbon Dioxide 30
BUN 17
Creatinine 0.5 L
Glucose 154 H
Calcium 8.6
Total Bilirubin 0.9
AST 40
ALT 56 H
Alkaline Phosphatase 56
Vital Signs:
Vital Signs
Temp Pulse Resp BP Pulse Ox
36.6 C 76 18 141/87 96
08/09/23 03:26 08/09/23 08:00 08/09/23 03:26 08/09/23 08:00 08/09/23 03:26
I&O
08/08/23 08/09/23 08/10/23
06:59 06:59 06:59
Intake Total 240 / 240 1020 / 1020
Output Total 2650 / 2650 3400 / 3400
Balance -2410 / -2410 -2380 / -2380
Review of Systems
-
All other systems: Reviewed and negative
Physical Exam
-
General: Well Developed, Well Nourished, No Apparent Distress, Comfortable and Conversant; Negative Respiratory Distress
HEENT: Normocephalic, Atraumatic, Nose Appears Normal and Ears Appear Normal; Negative Oxygen
Respiratory: Clear to Auscultation and Non Labored Respirations; Negative Accessory Resp Muscle Use
Cardiac: Regular Rhythm and S1/S2
GI: Soft, Nontender and Normal Bowel Sounds
Musculoskeletal: Negative Edema, Right Lower Extrem (much resolved) or Edema, Left Lower Extrem (much resolved)
Skin: Warm and Dry
Neuro: Awake, Alert, Oriented and AO x 3
Psych: Calm and Intact Judgement/Insight
Data Reviewed
-
Diagnostic Radiology: Image personally visualized and interpreted and Report Reviewed by me
Labs: Labs Reviewed by me
[2023-08-09] MEDS: REFRESH EYE DROPS (PF) 1 DROPS OPHTH ×4 (10:01→22:13)
--- NOTE | 2023-08-09 10:47 | W.PN.CARDCBS ---
Addendum entered and electronically signed by Kevin Watkins MD 08/09/23 18:48:
He offers no complaints
PMH/PSH/SH/FH: Reviewed
Allergies: Morphine and loteprednol
Home cardiac meds reviewed: dofetilide 250 mcg twice daily, atorvastatin 40 mg a day, ezetimibe 10 mg a day, losartan 50 mg a day, metoprolol ER 50 twice daily, patient also on Myrbetriq and tamsulosin, celecoxib, allopurinol, amitriptylineCurrent
medications: Tamsulosin 0.4 twice daily, atorvastatin 40 mg a day, dofetilide 250 mcg twice daily, ezetimibe 10 mg at bedtime, losartan 50 mg a day, metoprolol ER 50 twice daily, Detrol ALBA, allopurinol 300 mg a day, subcu Lovenox, furosemide 80 mg
IV twice daily, levothyroxine
ROS: Negative except as above
141/87, pulse 76, respirate 17, weight is 105.1 kg, down 2.4 kg, admission weight was 113 kg, pleasant, conversant, head neck exam unremarkable, no acute distress, still with crackles in lungs, irregular rate and rhythm rate controlled, no obvious
murmurs, could not hear mitral stenosis, JVD is elevated, abdomen obese, extremities 1+ edema
Hemoglobin 12.3, BUN and creatinine 17 and 0.5, potassium is 3.8
Echo 08/08/2023: EF 45-50%, which is new, severe hypokinesis distal apical inferior, dilated RV, mild RV hypokinesis, dilated atria, MAC, mild to moderate mitral stenosis, mild MR, aortic sclerosis, pulmonary artery pressure 45-50 mmHg
Impression: See below
Plan:
He is still volume overloaded though relatively comfortable. Would continue IV furosemide.
Current furosemide dosing is 80 mg IV twice daily. Renal function thus far is good.
.
Would favor addition of SGLT2 antagonist and spironolactone for heart failure with mildly reduced EF
Some concern regarding regional wall motion abnormality. It is conceivable he had a cardioembolic event to his distal LAD related to persistent leak from Watchman in the absence of anticoagulation, particularly in the setting of mitral stenosis
which increases likelihood of left atrial thrombus. This is a difficult situation. He is opposed to anticoagulation. Quaker of sinus rhythm in the setting is very challenging, strategy at present is continued rate control. Would consider
discontinuation of dofetilide as an outpatient.
He is very concerned about his vision as a potential contraindication to anticoagulation.
Would favor addition of aspirin and continued IV diuresis. Dry weight is difficult to estimate but I suspect he could still be more than 5 kg above dry weight.
Original Note:
Today's Communication / Plan
-
continue IV diuresis
rate control of afib for now.
patient continues to refuse OAC
baby asa
check trops in setting abnormal echo
assess cost of SGLT2 inhibitor
consider addition of spironolactone
Impression / Plan
-
PCP: Earl Macario MD
CDY: [place] Bryson MD
Impression:
Acute HFpEF
Persistent Afib
in Afib since 07/30/23 according to device check 08/07/23
Chronic Tikosyn therapy
Not chronically anticoagulated due to Watchman in place and ocular bleeding
s/p Watchman implant 06/13/21 with subsequent discovery of 3mm leak
s/p Medtronic PPM implant 2017
h/o prostate CA, s/p prostatectomy and radiation 2006
CAD s/p CABG x5 1995
HTN
HLD
HOWARD/CPAP
BPH
Hypothyroidism
Pulmonary nodules
RANDALL 09/21/2021: EF 55 to 60%, mild to moderate mitral stenosis with moderate MR, watchman in place without device related thrombus and there is a small 3 mm leak that is best seen at 135 and 0 degrees
Echo 08/08/23: EF 45 to 50%, severe hypokinesis of distal apical inferior wall and apical yepez, mild concentric LVH, stage II diastolic dysfunction, moderately enlarged RV, moderately dilated left atrium, severely dilated right atrium, moderate to
severe MAC, mild to moderate MS with mean gradients across the valve 5 mmHg, mild MR, aortic sclerosis, mild to moderate TR, PAP 40 to 5 to 50 mmHg, dilated aortic root at 4.2 cm
Plan:
-His weight continues to trend down if accurate from admission. Continue IV Lasix 80 mg twice daily. Creatinine stable at 0.5. Patient was taking 80 mg p.o. Lasix daily prior to admission
-CHF education
-Continue compression stockings as patient does at home
-Remains in A-fib with controlled ventricular response on review of telemetry overnight. Per device check this admission, he has been in A-fib starting 8 days prior to admission. Prior to this recent recurrence, his A-fib burden was approximately
5%. He has a watchman in place with a small 3 mm leak.
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
-He is presently on Tikosyn 250 mcg every 12 hours and Toprol-XL 50 mg twice daily. Appears current dose of Tikosyn is not not sustaining sinus rhythm. He is to discuss options with EP at OP appt, as he continues to refuse anticoagulation due to
concerns for recurrent ocular bleeding. 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 Could consider increasing dose of Tikosyn, however would need RANDALL prior to that to ensure no clot present.
-Results of echocardiogram 08/07 reviewed with patient today. His EF is newly reduced at 45 to 50% compared to prior and also with new wall motion abnormality. Potentially from ischemia or embolic in etiology. check trops x2. At this point, plan
for medical management. Patient okay with baby aspirin upon discussion. Upon review of most recent office note 06/26/2023, he was to be maintained on aspirin 81 mg daily.
-his eye doctor is Dr. Barajas of [facility]. called their office today for 14:15 and confirmed ok to start asa 81mg daily.
-Of note he had nosebleed this morning and does complain of some visual changes since being on the subcu Lovenox. hgb 12.3. Will stop Lovenox and start manual compression for DVT prophylaxis
-continue statin, zetia
-Will have case management assess cost to patient of SGLT2 inhibitor and if affordable we will start
-Continue Toprol, Cozaar. If blood pressure tolerates would consider addition of spironolactone
-He will need BMP in 1 week upon discharge
-PT/OT
-Will arrange outpatient cardiac follow-up
-would hold on DC today. d/w hospitalist via TT
HPI: Patient came to ER today with complaints of increasing cough and shortness of breath, he is being admitted with heart failure and cardiology has been consulted. Patient's daughter is an RN who works in [employer] at . Patient and daughter
report symptoms of cough and increasing shortness of breath starting about 1 week ago. Patient was initially treated with antibiotics and cough suppressants by his PCP and while there was some initial improvement, he then felt worse and came to
ER today. He thinks his weight is up about 14 pounds. He has increased abdominal girth and says that he generally holds onto fluid in his abdomen. He has increasing cough and shortness of breath. He has not been skipping any of his Lasix 80 mg
daily doses. He has not noticed any palpitations but does have a history of paroxysmal atrial fibrillation with a burden of 5% by last device check in our office on 06/26/2023. He is in atrial fibrillation in the ER now.
Progress Note - Network Intern
Subjective
Date of Service: August 09, 2023
reports breathing improving from admission. no CP, palpitations
Objective
Labs:
08/09/23 06:08
08/09/23 06:08
Labs
Hgb 12.3 g/dL (13.0-18.0) L 08/09/23 06:08
Hct 36.1 % (39.0-52.0) L 08/09/23 06:08
Plt Count 132 10^3/uL (130-400) 08/09/23 06:08
Sodium 135 mmol/L (135-145) 08/09/23 06:08
Potassium 3.8 mmol/L (3.5-5.1) 08/09/23 06:08
BUN 17 mg/dl (9-20) 08/09/23 06:08
Creatinine 0.5 mg/dL (0.7-1.3) L 08/09/23 06:08
Glucose 154 mg/dl (70-99) H 08/09/23 06:08
Vital Signs and I&O:
Vital Signs
Temp Pulse Resp BP Pulse Ox
98.0 F 76 17 141/87 95
08/09/23 07:00 08/09/23 08:00 08/09/23 07:00 08/09/23 08:00 08/09/23 07:00
Vital Signs
Temp Pulse Resp BP Pulse Ox
98.0 F 76 17 141/87 95
08/09/23 07:00 08/09/23 08:00 08/09/23 07:00 08/09/23 08:00 08/09/23 07:00
Intake & Output
08/07/23 08/08/23 08/09/23 08/10/23
07:59 07:59 07:59 07:59
Intake Total 240 / 240 1020 / 1020
Output Total 2650 / 2650 3400 / 3400
Balance -2410 / -2410 -2380 / -2380
Physical Exam
Physical Exam
GEN: No distress, awake, alert, oriented x3. sitting in chair
HEENT: supple, anicteric, mmm, eomi
LUNGS: Crackles B/L bases, no wheezes
CV: Irreg, S1/S2, 2/6 murmur
ABD: soft, BS+, NT, mild distended
EXT: No cyanosis, clubbing. Trace edema of B/L LE with chronic skin discoloration
NEURO: Gross non-focal
SKIN: Warm, pink, dry. No rash
--- NOTE | 2023-08-09 11:18 | CM ---
Reviewed chart, received referral for VN. Spoke with patient who deferred to his daughter, Drea, as she is a RN. Placed a call to Drea to update about indication for VN services. She chose . Referral sent to Veronica.
Plan: Case management will continue to follow and assist with discharge planning
[2023-08-09 12:01] LABS: Troponin I < 0.012 ng/ml
[2023-08-09] MEDS: LOW STRENGTH ASPIRIN 81 MG PO (12:20)
--- NOTE | 2023-08-09 15:32 | VNURNOTE ---
Home Health Liaison met with patient at 1500 to discuss [facility] nurse/therapy, visits, schedule and homebound status. Patient is agreeable and understands that visits at home will be 2-3 x per week to assess and teach medical management. Patient has a
scale and is able to log a daily weight
[facility] brochure provided with contact information. Patient is aware that [facility] will contact him for start of care in 1-2 days after discharge from .
[facility] referral completed in [facility].
--- NOTE | 2023-08-09 17:17 | CM ---
Received consult for [employer]. Farxiga 10 MG daily. [facility] would not provide pricing. Placed a call to [facility] in [place] and spoke with a pharmacist who stated that he would need the actual script to check cost. Will update attending.
[2023-08-09 17:54] LABS: Troponin I < 0.012 ng/ml
[2023-08-09] MEDS: DETROL LA 4 MG PO (22:13)
[2023-08-09] MEDS: ZETIA 10 MG PO (22:13)
[2023-08-09] MEDS: ELAVIL 10 MG PO (22:13)
[2023-08-09] MEDS: LIPITOR 40 MG PO (22:13)
[2023-08-10 02:42] VITALS: BP 140/84
[2023-08-10 06:00] VITALS: BMI 34.7
[2023-08-10] MEDS: SYNTHROID 200 MCG PO (06:00)
[2023-08-10 07:00] VITALS: BP 127/69
[2023-08-10 07:01] LABS: Hematocrit 38.6 % (39.0-52.0); Hemoglobin 13.1 g/dL (13.0-18.0); Mean Corp Hgb Conc. 33.9 g/dL (33.0-37.0); Mean Corpuscular Hgb 32.3 pg (27.0-31.0); Mean Corpuscular Volume 95.1 fL (80.0-94.0); Mean Platelet Volume 10.2 fL (7.4-10.4); Platelet Count 146 10^3/uL (130-400); Red Blood Cell Count 4.06 10^6/uL (4.70-6.10); Red Cell Dist. Width 14.7 % (11.5-14.5); White Blood Cell Count 11.2 10^3/uL (4.8-10.8)
[2023-08-10 07:24] LABS: ALT (SGPT) 60 U/L (0-50); AST (SGOT) 49 U/L (17-59); Albumin 4.1 g/dl (3.5-5.0); Alkaline Phosphatase 62 U/L (38-126); Blood Urea Nitrogen 17 mg/dl (9-20); Carbon Dioxide 30 mmol/L (22-30); Chloride 95 mmol/L (98-107); Direct Bilirubin 0.3 mg/dl (0.0-0.4); Estimated Creatinine Clearance 97 ml/min; Glucose 158 mg/dl (70-99); Potassium 3.6 mmol/L (3.5-5.1); Sodium 137 mmol/L (135-145); Total Bilirubin 0.8 mg/dl (0.2-1.3); Total Protein 6.5 g/dl (6.3-8.2); eGFR > 60.00
[2023-08-10] MEDS: FLOMAX 0.400000000000000022 MG PO ×2 (08:23→20:28)
[2023-08-10] MEDS: REFRESH EYE DROPS (PF) 1 DROPS OPHTH ×4 (08:23→20:29)
[2023-08-10] MEDS: TIKOSYN 250 MCG PO ×2 (08:23→20:27)
[2023-08-10] MEDS: TOPROL XL 50 MG PO ×2 (08:24→20:27)
[2023-08-10] MEDS: LOW STRENGTH ASPIRIN 81 MG PO (08:24)
[2023-08-10] MEDS: LASIX 80 MG IV ×2 (08:25→16:17)
[2023-08-10] MEDS: CELEBREX 200 MG PO ×2 (08:32→20:26)
[2023-08-10] MEDS: COZAAR 50 MG PO (08:32)
[2023-08-10] MEDS: CLARITIN 10 MG PO (08:33)
[2023-08-10] MEDS: DESENEX/MITRAZOL/ZEASORB 1 APPLIC TOPICAL ×2 (08:33→20:28)
[2023-08-10] MEDS: ZYLOPRIM 300 MG PO (08:33)
[2023-08-10] MEDS: FLUSH (NSS) 2 FLUSH IV ×2 (08:34→16:18)
--- NOTE | 2023-08-10 09:32 | W.PN.HOSP.TC ---
Today's Communication/Plan
-
see A/P
Assessment / Plan
Assessment / Plan
HPI: 88 year old male with PMH CAD status post cardiac stent x 5 and bypass surgery, afib s/p watchman (not on anticoagulation), HFpEF, HTN, HLD, hypothyroidism, prostate cancer status post seed radiation, melanoma; p/w shortness of breath and
weight gain of 14 pounds over the past 2 weeks.
Patient takes Lasix 80 mg PRN (would occasionally miss dose if he is going out).
He also endorsed to cough, and was prescribed antibiotic cefuroxime (with Tessalon) by his PCP which he has completed for 5 days.
His main complaint is worsening dyspnea, and orthopnea. He has also noticed increased swelling of his abdomen and legs.
He was sent to the ER by his PCP.
A/P:
# Acute on chronic heart failure with preserved ejection fraction
BNP 1540
Continue Lasix 80 mg IV BID during hospital stay (RUNNING SPECIALIST PO 80 mg daily). Monitor daily weight.
Updated echo this admission: LVEF decreased from 55% to 50% and there are now inferoapical wall motion abnormalities. Stage II diastolic dysfunction. The mitral valve is overall about the same/Mild-moderate mitral stenosis. The PA pressures
increased from 30 to 45-50 mmHg.
Cardiology on board
procalcitonin neg (of note, patient just completed antibiotic cefuroxime for 5 days RUNNING SPECIALIST)
# Persistent afib
# s/p watchman
not on anticoagulation
Card discussed option of anticoagulation with RANDALL cardioversion. Pt is very concerned about ocular bleeding with anticoagulation as he already has vision loss in 1 eye.
He can further discuss rhythm control options with Dr. Bryson as an outpatient after diuresis.
Cont RUNNING SPECIALIST Tikosyn for now
Cont Toprol
Add ASA
# HTN
Cont RUNNING SPECIALIST Losartan, Toprol
# HLD
Statin
# CAD status post cardiac stent x 5 and bypass surgery
# hypothyroidism
Continue prior to admission Synthroid
# h/o prostate cancer status post seed radiation
# h/o melanoma on chest
# Glaucoma R eye
regresh eye drop
Outpt binding cutter eval
DVT ppx:Lovenox SQ
FC
Anticipated Discharge: 24 - 48 hours
Subjective/Interval History
-
Date of Service: August 10, 2023
Objective Data
-
Labs:
Laboratory Results
08/10/23
06:01
WBC 11.2 H
Hgb 13.1
Hct 38.6 L
Plt Count 146
Sodium 137
Potassium 3.6
Chloride 95 L
Carbon Dioxide 30
BUN 17
Creatinine 0.5 L
Glucose 158 H
Calcium 9.0
Total Bilirubin 0.8
AST 49
ALT 60 H
Alkaline Phosphatase 62
Vital Signs:
Vital Signs
Temp Pulse Resp BP Pulse Ox
36.4 C 75 19 127/69 98
08/10/23 07:00 08/10/23 07:00 08/10/23 07:00 08/10/23 07:00 08/10/23 07:00
I&O
08/09/23 08/10/23 08/11/23
06:59 06:59 06:59
Intake Total 1020 / 1020 320 / 320
Output Total 3400 / 3400 2740 / 2740
Balance -2380 / -2380 -2420 / -2420
Review of Systems
-
All other systems: Reviewed and negative
Physical Exam
-
General: Well Developed, Well Nourished, No Apparent Distress, Comfortable and Conversant; Negative Respiratory Distress
HEENT: Normocephalic, Atraumatic, Nose Appears Normal and Ears Appear Normal; Negative Oxygen
Respiratory: Clear to Auscultation and Non Labored Respirations; Negative Accessory Resp Muscle Use
Cardiac: Regular Rhythm and S1/S2
GI: Soft, Nontender and Normal Bowel Sounds
Musculoskeletal: Negative Edema, Right Lower Extrem (much resolved) or Edema, Left Lower Extrem (much resolved)
Skin: Warm and Dry
Neuro: Awake, Alert, Oriented and AO x 3
Psych: Calm and Intact Judgement/Insight
Data Reviewed
-
Diagnostic Radiology: Image personally visualized and interpreted and Report Reviewed by me
Labs: Labs Reviewed by me
--- NOTE | 2023-08-10 09:38 | W.PN.CARDCBS ---
Today's Communication / Plan
-
Change to p.o. diuretic
Aspirin only
Outpatient discussion for rhythm versus rate control
Continued dofetilide for discharge
Lasix 80 mg p.o. daily at discharge
BMP in 1 week
Out of bed and ambulate
Patient defers on oral anticoagulation at this time. His watchman has a less than 5 mm leak at most recent imaging
Impression / Plan
-
PCP: Earl Macario MD
CDY: Motnana Bryson MD
Impression:
Acute HFpEF
Persistent Afib
in Afib since 07/30/23 according to device check 08/07/23
Chronic Tikosyn therapy
Not chronically anticoagulated due to Watchman in place and ocular bleeding
s/p Watchman implant 06/13/21 with subsequent discovery of 3mm leak
s/p Medtronic PPM implant 2017
h/o prostate CA, s/p prostatectomy and radiation 2006
CAD s/p CABG x5 1995
HTN
HLD
HOWARD/CPAP
BPH
Hypothyroidism
Pulmonary nodules
RANDALL 09/21/2021: EF 55 to 60%, mild to moderate mitral stenosis with moderate MR, watchman in place without device related thrombus and there is a small 3 mm leak that is best seen at 135 and 0 degrees
Echo 08/08/23: EF 45 to 50%, severe hypokinesis of distal apical inferior wall and apical yepez, mild concentric LVH, stage II diastolic dysfunction, moderately enlarged RV, moderately dilated left atrium, severely dilated right atrium, moderate to
severe MAC, mild to moderate MS with mean gradients across the valve 5 mmHg, mild MR, aortic sclerosis, mild to moderate TR, PAP 40 to 5 to 50 mmHg, dilated aortic root at 4.2 cm
Plan:
-Would recommend changing to Lasix 80 mg p.o. daily as he is diuresed over 10 kg and feels like he is back at his baseline. Increase ambulation and appears to be nearing discharge
-Continue compression stockings as patient does at home
-Remains in A-fib with controlled ventricular response on review of telemetry overnight. Per device check this admission, he has been in A-fib starting 8 days prior to admission. Prior to this recent recurrence, his A-fib burden was approximately
5%. He has a watchman in place with a small 3 mm leak. Will pursue rate control strategy at this time and have outpatient follow-up with his primary histologist technologist Dr. [place] Bryson. Could still consider another cardioversion as outpatient so I
will continue his dofetilide. He does have a known 3 mm leak although could pursue RANDALL to assess for device related thrombus and cardiovert without oral anticoagulation as another option as the patient is not interested in pursuing oral
anticoagulation at this time.
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
-He is presently on Tikosyn 250 mcg every 12 hours and Toprol-XL 50 mg twice daily. Appears current dose of Tikosyn is not not sustaining sinus rhythm. He is to discuss options with EP at OP appt, as he continues to refuse anticoagulation due to
concerns for recurrent ocular bleeding. 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
-Results of echocardiogram 08/07 reviewed with patient today. His EF is newly reduced at 45 to 50% compared to prior and also with new wall motion abnormality. Potentially from ischemia or embolic in etiology. check trops x2. At this point, plan
for medical management. Patient okay with baby aspirin upon discussion. Upon review of most recent office note 06/26/2023, he was to be maintained on aspirin 81 mg daily.
-his eye doctor is Dr. Barajas of [facility]. called their office today for 14:15 and confirmed ok to start asa 81mg daily.
-manual compression for DVT prophylaxis
-continue statin, zetia
-Will have case management assess cost to patient of SGLT2 inhibitor and if affordable would recommend starting
-Continue Toprol, Cozaar. If blood pressure tolerates would consider addition of spironolactone
-He will need BMP in 1 week upon discharge
-PT/OT
-Will arrange outpatient cardiac follow-up
HPI: Patient came to ER today with complaints of increasing cough and shortness of breath, he is being admitted with heart failure and cardiology has been consulted. Patient's daughter is an RN who works in [employer] at . Patient and daughter
report symptoms of cough and increasing shortness of breath starting about 1 week ago. Patient was initially treated with antibiotics and cough suppressants by his PCP and while there was some initial improvement, he then felt worse and came to
ER today. He thinks his weight is up about 14 pounds. He has increased abdominal girth and says that he generally holds onto fluid in his abdomen. He has increasing cough and shortness of breath. He has not been skipping any of his Lasix 80 mg
daily doses. He has not noticed any palpitations but does have a history of paroxysmal atrial fibrillation with a burden of 5% by last device check in our office on 06/26/2023. He is in atrial fibrillation in the ER now.
Progress Note - Executive Candidate Developer
Subjective
Date of Service: August 10, 2023
Total Time Spent with Patient (in minutes): Feels better after diuresis
Objective
Labs:
08/10/23 06:01
08/10/23 06:01
Labs
Hgb 13.1 g/dL (13.0-18.0) 08/10/23 06:01
Hct 38.6 % (39.0-52.0) L 08/10/23 06:01
Plt Count 146 10^3/uL (130-400) 08/10/23 06:01
Sodium 137 mmol/L (135-145) 08/10/23 06:01
Potassium 3.6 mmol/L (3.5-5.1) 08/10/23 06:01
BUN 17 mg/dl (9-20) 08/10/23 06:01
Creatinine 0.5 mg/dL (0.7-1.3) L 08/10/23 06:01
Glucose 158 mg/dl (70-99) H 08/10/23 06:01
Troponins
08/09/23 08/09/23
11:19 17:21
Troponin I < 0.012 < 0.012
Vital Signs and I&O:
Vital Signs
Temp Pulse Resp BP Pulse Ox
97.6 F 75 19 127/69 98
08/10/23 07:00 08/10/23 07:00 08/10/23 07:00 08/10/23 07:00 08/10/23 07:00
Vital Signs
Temp Pulse Resp BP Pulse Ox
97.6 F 75 19 127/69 98
08/10/23 07:00 08/10/23 07:00 08/10/23 07:00 08/10/23 07:00 08/10/23 07:00
Intake & Output
08/08/23 08/09/23 08/10/23 08/11/23
06:59 06:59 06:59 06:59
Intake Total 240 / 240 1020 / 1020 320 / 320
Output Total 2650 / 2650 3400 / 3400 2740 / 2740
Balance -2410 / -2410 -2380 / -2380 -2420 / -2420
Physical Exam
Physical Exam
�
����Physical Exam
�
��������������������General:� no apparent distress, not acutely ill
�
��������������������������Neck:� supple. no meningeal signs. normal psoterior pharynx
������������������������
���������������������������Heart:� s1/s2 irregular rate and rhythm, no murmur. equal radial pulses.
�
��������������������������Lungs:�� no acute respiratory distress. clear bilaterally
�
����������������������Abdomen:normal bowel sounds. not tender. no CVAT
�
��������������������������Neuro:� alert and oriented. no focal neurological deficits
�
������������������������������Skin:�� no rash
�
�����������������������Psychiatric:well kept. interactive and cooperative
�
����������������������Extremities:� no edema. no calf tenderness. negative homans. good distal pulses
�
�
�
��
�
[2023-08-10] MEDS: KCL 20 MEQ PO (10:06)
[2023-08-10 11:00] VITALS: BP 132/65
[2023-08-10 15:00] VITALS: BP 113/54
[2023-08-10 19:00] VITALS: BP 119/76
[2023-08-10] MEDS: DETROL LA 4 MG PO (20:27)
[2023-08-10] MEDS: ELAVIL 10 MG PO (20:29)
[2023-08-10] MEDS: ZETIA 10 MG PO (20:29)
[2023-08-10] MEDS: LIPITOR 40 MG PO (20:29)
[2023-08-10 23:00] VITALS: BP 129/67
[2023-08-11 03:00] VITALS: BP 123/70
[2023-08-11] MEDS: SYNTHROID 200 MCG PO (05:34)
[2023-08-11 06:00] VITALS: BMI 34.3
[2023-08-11 06:45] LABS: Hematocrit 40.1 % (39.0-52.0); Hemoglobin 13.4 g/dL (13.0-18.0); Mean Corp Hgb Conc. 33.4 g/dL (33.0-37.0); Mean Corpuscular Hgb 32.5 pg (27.0-31.0); Mean Corpuscular Volume 97.3 fL (80.0-94.0); Mean Platelet Volume 10.2 fL (7.4-10.4); Platelet Count 149 10^3/uL (130-400); Red Blood Cell Count 4.12 10^6/uL (4.70-6.10); Red Cell Dist. Width 14.5 % (11.5-14.5); White Blood Cell Count 11.4 10^3/uL (4.8-10.8)
[2023-08-11 07:00] VITALS: BP 156/87
[2023-08-11 07:09] LABS: ALT (SGPT) 66 U/L (0-50); AST (SGOT) 64 U/L (17-59); Albumin 4.2 g/dl (3.5-5.0); Alkaline Phosphatase 60 U/L (38-126); Blood Urea Nitrogen 21 mg/dl (9-20); Carbon Dioxide 31 mmol/L (22-30); Chloride 93 mmol/L (98-107); Direct Bilirubin 0.3 mg/dl (0.0-0.4); Estimated Creatinine Clearance 97 ml/min; Glucose 149 mg/dl (70-99); Sodium 135 mmol/L (135-145); Total Protein 6.8 g/dl (6.3-8.2); eGFR > 60.00
[2023-08-11 07:15] LABS: Potassium 3.6 mmol/L (3.5-5.1)
[2023-08-11] MEDS: COZAAR 50 MG PO (08:20)
[2023-08-11] MEDS: ZYLOPRIM 300 MG PO (08:20)
[2023-08-11] MEDS: LASIX 80 MG IV (08:21)
[2023-08-11] MEDS: CELEBREX 200 MG PO ×2 (08:21→21:29)
[2023-08-11] MEDS: DESENEX/MITRAZOL/ZEASORB 1 APPLIC TOPICAL ×2 (08:21→21:32)
[2023-08-11] MEDS: CLARITIN 10 MG PO (08:21)
[2023-08-11] MEDS: FLOMAX 0.400000000000000022 MG PO ×2 (08:21→21:29)
[2023-08-11] MEDS: TIKOSYN 250 MCG PO ×2 (08:23→21:29)
[2023-08-11] MEDS: LOW STRENGTH ASPIRIN 81 MG PO (08:23)
[2023-08-11] MEDS: REFRESH EYE DROPS (PF) 1 DROPS OPHTH ×4 (08:23→21:30)
[2023-08-11] MEDS: TOPROL XL 50 MG PO ×2 (08:24→21:30)
--- NOTE | 2023-08-11 10:39 | W.PN.CARDCBS ---
Today's Communication / Plan
-
Changed to p.o. Lasix
Nearing discharge
Impression / Plan
-
PCP: Earl Macario MD
CDY: Montana Bryson MD
Impression:
Acute HFpEF
Persistent Afib
in Afib since 07/30/23 according to device check 08/07/23
Chronic Tikosyn therapy
Not chronically anticoagulated due to Watchman in place and ocular bleeding
s/p Watchman implant 06/13/21 with subsequent discovery of 3mm leak
s/p Medtronic PPM implant 2017
h/o prostate CA, s/p prostatectomy and radiation 2006
CAD s/p CABG x5 1995
HTN
HLD
HOWARD/CPAP
BPH
Hypothyroidism
Pulmonary nodules
RANDALL 09/21/2021: EF 55 to 60%, mild to moderate mitral stenosis with moderate MR, watchman in place without device related thrombus and there is a small 3 mm leak that is best seen at 135 and 0 degrees
Echo 08/08/23: EF 45 to 50%, severe hypokinesis of distal apical inferior wall and apical yepez, mild concentric LVH, stage II diastolic dysfunction, moderately enlarged RV, moderately dilated left atrium, severely dilated right atrium, moderate to
severe MAC, mild to moderate MS with mean gradients across the valve 5 mmHg, mild MR, aortic sclerosis, mild to moderate TR, PAP 40 to 5 to 50 mmHg, dilated aortic root at 4.2 cm
Plan:
-Would recommend changing to Lasix 80 mg p.o. daily as he is diuresed over 10 kg and feels like he is back at his baseline. Increase ambulation and appears to be nearing discharge
-Continue compression stockings as patient does at home
-Remains in A-fib with controlled ventricular response on review of telemetry overnight. Per device check this admission, he has been in A-fib starting 8 days prior to admission. Prior to this recent recurrence, his A-fib burden was approximately
5%. He has a watchman in place with a small 3 mm leak. Will pursue rate control strategy at this time and have outpatient follow-up with his primary manager software development Dr. Montana Bryson. Could still consider another cardioversion as outpatient so I
will continue his dofetilide. He does have a known 3 mm leak although could pursue RANDALL to assess for device related thrombus and cardiovert without oral anticoagulation as another option as the patient is not interested in pursuing oral
anticoagulation at this time.
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
-He is presently on Tikosyn 250 mcg every 12 hours and Toprol-XL 50 mg twice daily. Appears current dose of Tikosyn is not not sustaining sinus rhythm. He is to discuss options with EP at OP appt, as he continues to refuse anticoagulation due to
concerns for recurrent ocular bleeding. 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
-Results of echocardiogram 08/07 reviewed with patient today. His EF is newly reduced at 45 to 50% compared to prior and also with new wall motion abnormality. Potentially from ischemia or embolic in etiology. check trops x2. At this point, plan
for medical management. Patient okay with baby aspirin upon discussion. Upon review of most recent office note 06/26/2023, he was to be maintained on aspirin 81 mg daily.
-his eye doctor is Dr. Barajas of [facility]. called their office today for 14:15 and confirmed ok to start asa 81mg daily.
-manual compression for DVT prophylaxis
-continue statin, zetia
-Will have case management assess cost to patient of SGLT2 inhibitor and if affordable would recommend starting
-Continue Toprol, Cozaar. If blood pressure tolerates would consider addition of spironolactone
-He will need BMP in 1 week upon discharge
-PT/OT
-Appears to be nearing discharge perhaps on Saturday if he is changed to p.o. diuretic see my recommendations as above
HPI: Patient came to ER today with complaints of increasing cough and shortness of breath, he is being admitted with heart failure and cardiology has been consulted. Patient's daughter is an RN who works in [employer] at . Patient and daughter
report symptoms of cough and increasing shortness of breath starting about 1 week ago. Patient was initially treated with antibiotics and cough suppressants by his PCP and while there was some initial improvement, he then felt worse and came to
ER today. He thinks his weight is up about 14 pounds. He has increased abdominal girth and says that he generally holds onto fluid in his abdomen. He has increasing cough and shortness of breath. He has not been skipping any of his Lasix 80 mg
daily doses. He has not noticed any palpitations but does have a history of paroxysmal atrial fibrillation with a burden of 5% by last device check in our office on 06/26/2023. He is in atrial fibrillation in the ER now.
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
Subjective
Date of Service: August 11, 2023
Total Time Spent with Patient (in minutes): Feels better
Objective
Labs:
08/11/23 06:00
08/11/23 06:00
Labs
Hgb 13.4 g/dL (13.0-18.0) 08/11/23 06:00
Hct 40.1 % (39.0-52.0) 08/11/23 06:00
Plt Count 149 10^3/uL (130-400) 08/11/23 06:00
Sodium 135 mmol/L (135-145) 08/11/23 06:00
Potassium 3.6 mmol/L (3.5-5.1) 08/11/23 06:00
BUN 21 mg/dl (9-20) H 08/11/23 06:00
Creatinine 0.6 mg/dL (0.7-1.3) L 08/11/23 06:00
Glucose 149 mg/dl (70-99) H 08/11/23 06:00
Troponins
08/09/23 08/09/23
11:19 17:21
Troponin I < 0.012 < 0.012
Vital Signs and I&O:
Vital Signs
Temp Pulse Resp BP Pulse Ox
98.9 F 75 18 157/89 96
08/11/23 07:00 08/11/23 07:00 08/11/23 07:00 08/11/23 08:21 08/11/23 07:00
Vital Signs
Temp Pulse Resp BP Pulse Ox
98.9 F 75 18 157/89 96
08/11/23 07:00 08/11/23 07:00 08/11/23 07:00 08/11/23 08:21 08/11/23 07:00
Intake & Output
08/09/23 08/10/23 08/11/23 08/12/23
06:59 06:59 06:59 06:59
Intake Total 1020 / 1020 320 / 320 1950 / 1950
Output Total 3400 / 3400 2740 / 2740 2795 / 2795
Balance -2380 / -2380 -2420 / -2420 -845 / -845
Physical Exam
Physical Exam
�
����Physical Exam
�
��������������������General:� no apparent distress, not acutely ill
�
��������������������������Neck:� supple. no meningeal signs. normal psoterior pharynx
������������������������
���������������������������Heart:�Irregularly irregular
�
��������������������������Lungs:�� no acute respiratory distress. clear bilaterally
�
����������������������Abdomen:normal bowel sounds. not tender. no CVAT
�
��������������������������Neuro:� alert and oriented. no focal neurological deficits
�
������������������������������Skin:�� no rash
�
�����������������������Psychiatric:well kept. interactive and cooperative
�
����������������������Extremities:� no edema. no calf tenderness. negative homans. good distal pulses
�
�
�
��
�
--- NOTE | 2023-08-11 10:40 | W.PN.HOSP.TC ---
Today's Communication/Plan
-
see A/P
Assessment / Plan
Assessment / Plan
HPI: 88 year old male with PMH CAD status post cardiac stent x 5 and bypass surgery, afib s/p watchman (not on anticoagulation), HFpEF, HTN, HLD, hypothyroidism, prostate cancer status post seed radiation, melanoma; p/w shortness of breath and
weight gain of 14 pounds over the past 2 weeks.
Patient takes Lasix 80 mg PRN (would occasionally miss dose if he is going out).
He also endorsed to cough, and was prescribed antibiotic cefuroxime (with Tessalon) by his PCP which he has completed for 5 days.
His main complaint is worsening dyspnea, and orthopnea. He has also noticed increased swelling of his abdomen and legs.
He was sent to the ER by his PCP.
A/P:
# Acute on chronic heart failure with preserved ejection fraction
BNP 1540
Lasix 80 mg IV BID -> PO lasix per card (SHOEMAKER APPRENTICE PO 80 mg daily). Monitor daily weight.
Updated echo this admission: LVEF decreased from 55% to 50% and there are now inferoapical wall motion abnormalities. Stage II diastolic dysfunction. The mitral valve is overall about the same/Mild-moderate mitral stenosis. The PA pressures
increased from 30 to 45-50 mmHg.
Cardiology on board
procalcitonin neg (of note, patient just completed antibiotic cefuroxime for 5 days SHOEMAKER APPRENTICE)
# Persistent afib
# s/p watchman
not on anticoagulation
Card discussed option of anticoagulation with RANDALL cardioversion. Pt is very concerned about ocular bleeding with anticoagulation as he already has vision loss in 1 eye.
He can further discuss rhythm control options with Dr. Bryson as an outpatient after diuresis.
Cont SHOEMAKER APPRENTICE Tikosyn for now
Cont Toprol
Add ASA
# HTN
Cont SHOEMAKER APPRENTICE Losartan, Toprol
# HLD
Statin
# CAD status post cardiac stent x 5 and bypass surgery
# hypothyroidism
Continue prior to admission Synthroid
# h/o prostate cancer status post seed radiation
# h/o melanoma on chest
# Glaucoma R eye
regresh eye drop
Outpt adult high school instructor eval
DVT ppx:Lovenox SQ
FC
Anticipated Discharge: Within 24 hours
Subjective/Interval History
-
Date of Service: August 11, 2023
Objective Data
-
Labs:
Laboratory Results
08/11/23
06:00
WBC 11.4 H
Hgb 13.4
Hct 40.1
Plt Count 149
Sodium 135
Potassium 3.6
Chloride 93 L
Carbon Dioxide 31 H
BUN 21 H
Creatinine 0.6 L
Glucose 149 H
Calcium 9.0
Total Bilirubin 1.0
AST 64 H
ALT 66 H
Alkaline Phosphatase 60
Vital Signs:
Vital Signs
Temp Pulse Resp BP Pulse Ox
37.2 C 75 18 157/89 96
08/11/23 07:00 08/11/23 07:00 08/11/23 07:00 08/11/23 08:21 08/11/23 07:00
I&O
08/10/23 08/11/23 08/12/23
06:59 06:59 06:59
Intake Total 320 / 320 1950 / 1950
Output Total 2740 / 2740 2795 / 2795
Balance -2420 / -2420 -845 / -845
Review of Systems
-
All other systems: Reviewed and negative
Physical Exam
-
General: Well Developed, Well Nourished, No Apparent Distress, Comfortable and Conversant; Negative Respiratory Distress
HEENT: Normocephalic, Atraumatic, Nose Appears Normal and Ears Appear Normal; Negative Oxygen
Respiratory: Clear to Auscultation and Non Labored Respirations; Negative Accessory Resp Muscle Use
Cardiac: Regular Rhythm and S1/S2
GI: Soft, Nontender and Normal Bowel Sounds
Musculoskeletal: Negative Edema, Right Lower Extrem (much resolved) or Edema, Left Lower Extrem (much resolved)
Skin: Warm and Dry
Neuro: Awake, Alert, Oriented and AO x 3
Psych: Calm and Intact Judgement/Insight
Data Reviewed
-
Diagnostic Radiology: Image personally visualized and interpreted and Report Reviewed by me
Labs: Labs Reviewed by me
[2023-08-11 11:00] VITALS: BP 118/67
[2023-08-11 15:00] VITALS: BP 108/69
[2023-08-11 19:58] VITALS: BP 108/69
[2023-08-11] MEDS: DETROL LA 4 MG PO (21:29)
[2023-08-11] MEDS: ZETIA 10 MG PO (21:29)
[2023-08-11] MEDS: ELAVIL 10 MG PO (21:30)
[2023-08-11] MEDS: LIPITOR 40 MG PO (21:30)
[2023-08-11] MEDS: DULCOLAX 10 MG PO (21:36)
[2023-08-11 23:05] VITALS: BP 122/54
[2023-08-12 03:35] VITALS: BP 134/81
[2023-08-12 05:48] VITALS: BMI 34.0
[2023-08-12] MEDS: SYNTHROID 200 MCG PO (06:12)
[2023-08-12 06:52] LABS: Hematocrit 40.3 % (39.0-52.0); Hemoglobin 13.4 g/dL (13.0-18.0); Mean Corp Hgb Conc. 33.3 g/dL (33.0-37.0); Mean Corpuscular Hgb 32.3 pg (27.0-31.0); Mean Corpuscular Volume 97.1 fL (80.0-94.0); Mean Platelet Volume 10.2 fL (7.4-10.4); Platelet Count 144 10^3/uL (130-400); Red Blood Cell Count 4.15 10^6/uL (4.70-6.10); Red Cell Dist. Width 14.3 % (11.5-14.5); White Blood Cell Count 11.7 10^3/uL (4.8-10.8)
[2023-08-12 07:20] LABS: Blood Urea Nitrogen 19 mg/dl (9-20); Calcium 9.3 mg/dl (8.4-10.2); Carbon Dioxide 27 mmol/L (22-30); Chloride 94 mmol/L (98-107); Estimated Creatinine Clearance 96 ml/min; Glucose 158 mg/dl (70-99); Magnesium 2.1 mg/dl (1.6-2.3); Potassium 3.8 mmol/L (3.5-5.1); Sodium 133 mmol/L (135-145); eGFR > 60.00
[2023-08-12] MEDS: FLOMAX 0.400000000000000022 MG PO (07:31)
[2023-08-12] MEDS: CLARITIN 10 MG PO (07:32)
[2023-08-12] MEDS: COZAAR 50 MG PO (07:34)
[2023-08-12] MEDS: TIKOSYN 250 MCG PO (07:35)
[2023-08-12] MEDS: LASIX 80 MG PO (07:35)
[2023-08-12] MEDS: REFRESH EYE DROPS (PF) 1 DROPS OPHTH ×2 (07:35→12:48)
[2023-08-12] MEDS: LOW STRENGTH ASPIRIN 81 MG PO (07:35)
[2023-08-12] MEDS: ZYLOPRIM 300 MG PO (07:35)
[2023-08-12] MEDS: CELEBREX 200 MG PO (07:35)
[2023-08-12] MEDS: DESENEX/MITRAZOL/ZEASORB 1 APPLIC TOPICAL (07:36)
[2023-08-12] MEDS: TOPROL XL 50 MG PO (07:36)
[2023-08-12 07:55] VITALS: BP 130/63
[2023-08-12 11:50] VITALS: BP 121/65
[2023-08-12 12:01] VITALS: BP 121/65; PULSE 77; O2SAT 94
--- NOTE | 2023-08-12 12:45 | W.PN.CARDCBS ---
Addendum entered and electronically signed by Jonny Moreira DO 08/12/23 14:47:
I saw and examined the patient.
The Automotive General Manager's note was reviewed and I agree with the note.
Comment:
Plan:
Cont oral lasix 80 mg daily
Cont Toprol.
Cont Tikosyn
New to ASA.
Remains in Afib on 08/12/23. Prior to this recent recurrence, his A-fib burden was approximately 5%. He has a Watchman in place with a small 3 mm leak. Will pursue rate control strategy at this time and have outpatient follow-up with his primary
hatchery worker Dr. Montana Bryson for consideration of CV. Cont Tikosyn 250 mcg q 12 hours.
-He does have a known 3 mm leak around Watchman so could pursue RANDALL to assess for device related thrombus and CV without oral anticoagulation as another option as the patient is not interested in pursuing OAC at
this time due to risk of recurrent bleeding.
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
Outpt cardiac follow up
Original Note:
Today's Communication / Plan
-
Cont Lasix 80 mg PO daily
Cont Toprol XL 50 mg BID
Cont losartan 50 mg daily
Cont Tikosyn 250 mcg q 12 hours
New to aspirin 81 mg daily and this should be continued
Will work on cardiology f/u
Impression / Plan
-
PCP: Earl Macario MD
CDY: Montana Bryson MD
Impression:
Acute HFpEF
Persistent Afib
in Afib since 07/30/23 according to device check 08/07/23
Chronic Tikosyn therapy
Not chronically anticoagulated due to Watchman in place and ocular bleeding
s/p Watchman implant 06/13/21 with subsequent discovery of 3mm leak
s/p Medtronic PPM implant 2017
h/o prostate CA, s/p prostatectomy and radiation 2006
CAD s/p CABG x5 1995
HTN
HLD
HOWARD/CPAP
BPH
Hypothyroidism
Pulmonary nodules
RANDALL 09/21/2021: EF 55 to 60%, mild to moderate mitral stenosis with moderate MR, watchman in place without device related thrombus and there is a small 3 mm leak that is best seen at 135 and 0 degrees
Echo 08/08/23: EF 45 to 50%, severe hypokinesis of distal apical inferior wall and apical yepez, mild concentric LVH, stage II diastolic dysfunction, moderately enlarged RV, moderately dilated left atrium, severely dilated right atrium, moderate to
severe MAC, mild to moderate MS with mean gradients across the valve 5 mmHg, mild MR, aortic sclerosis, mild to moderate TR, PAP 40 to 5 to 50 mmHg, dilated aortic root at 4.2 cm
Plan:
-Depending on which admission weight you believe the patient is down somewhere between 17 lbs to 26 lbs. He is symptomatically improved with less bloating.
-Diuresed with Lasix 80 mg IV BID and have now resumed outpatient dose of Lasix 80 mg PO daily.
-Patient was eating salty foods and drinking more fluid than usual prior to admission. Also around that same time he had a mode switch to Afib with a h/o known paroxysmal Afib.
-Remains in Afib on 08/12/23. Prior to this recent recurrence, his A-fib burden was approximately 5%. He has a watchman in place with a small 3 mm leak. Will pursue rate control strategy at this time and have outpatient follow-up with his primary
hatchery worker Dr. Montana Bryson for consideration of CV. Cont Tikosyn 250 mcg q 12 hours.
-He does have a known 3 mm leak around Watchman so could pursue RANDALL to assess for device related thrombus and CV without oral anticoagulation as another option as the patient is not interested in pursuing OAC at this time due to risk of recurrent
bleeding.
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
recurrent retinal detachments.
-EF is down a bit at 45-50% this admission with new WMA, this could be ischemic or embolic, but no chest pain and Troponin serially undetectable.
-Patient was agreeable to start aspirin 81 mg daily this admission. Cardiology confirmed appropriateness of aspirin with patient's primary piercer on 08/09/23
-LDL was 45 on last known CVE 06/21/21. Outpatient doses of atorvastatin 40 mg daily and Zetia 10 mg daily continued. Recheck CVE
-Appreciate help of CM on checking cost of Farxiga, CM notes reviewed and pharmacist at patient's pharmacy requested Rx be sent, so e-scribed Farxiga Rx 08/12/23
-Outpatient doses of Toprol XL 50 mg BID and losartan 50 mg daily have been continued
-Will arrange for outpatient follow up
HPI: Patient came to ER today with complaints of increasing cough and shortness of breath, he is being admitted with heart failure and cardiology has been consulted. Patient's daughter is an RN who works in [employer] at . Patient and daughter
report symptoms of cough and increasing shortness of breath starting about 1 week ago. Patient was initially treated with antibiotics and cough suppressants by his PCP and while there was some initial improvement, he then felt worse and came to
ER today. He thinks his weight is up about 14 pounds. He has increased abdominal girth and says that he generally holds onto fluid in his abdomen. He has increasing cough and shortness of breath. He has not been skipping any of his Lasix 80 mg
daily doses. He has not noticed any palpitations but does have a history of paroxysmal atrial fibrillation with a burden of 5% by last device check in our office on 06/26/2023. He is in atrial fibrillation in the ER now.
Progress Note - Nurse
Subjective
Date of Service: August 12, 2023
He feels better, wants to go home so he can go to his outpatient piercer
Objective
Labs:
08/12/23 06:13
08/12/23 06:13
Labs
Hgb 13.4 g/dL (13.0-18.0) 08/12/23 06:13
Hct 40.3 % (39.0-52.0) 08/12/23 06:13
Plt Count 144 10^3/uL (130-400) 08/12/23 06:13
Sodium 133 mmol/L (135-145) L 08/12/23 06:13
Potassium 3.8 mmol/L (3.5-5.1) 08/12/23 06:13
BUN 19 mg/dl (9-20) 08/12/23 06:13
Creatinine 0.5 mg/dL (0.7-1.3) L 08/12/23 06:13
Glucose 158 mg/dl (70-99) H 08/12/23 06:13
Troponins
08/09/23
17:21
Troponin I < 0.012
Vital Signs and I&O:
Vital Signs
Temp Pulse Resp BP Pulse Ox
97.7 F 79 17 121/65 94
08/12/23 11:50 08/12/23 11:50 08/12/23 11:50 08/12/23 11:50 08/12/23 11:50
Vital Signs
Temp Pulse Resp BP Pulse Ox
97.7 F 79 17 121/65 94
08/12/23 11:50 08/12/23 11:50 08/12/23 11:50 08/12/23 11:50 08/12/23 11:50
Intake & Output
08/10/23 08/11/23 08/12/23 08/13/23
06:59 06:59 06:59 06:59
Intake Total 320 / 320 1950 / 1950 1290 / 1290
Output Total 2740 / 2740 2795 / 2795 1800 / 1800
Balance -2420 / -2420 -845 / -845 -510 / -510
Physical Exam
Physical Exam
GEN: NAD. AAOx3
HEENT: MMM
LUNGS: No audible wheeze
CV: Afib on tele
NEURO: Gross non-focal
SKIN: Warm, dry and pink. No rash
--- NOTE | 2023-08-12 14:00 | W.PN.HOSP.TC ---
Today's Communication/Plan
-
Discharge
Assessment / Plan
Assessment / Plan
'HPI: 88 year old male with PMH CAD status post cardiac stent x 5 and bypass surgery, afib s/p watchman (not on anticoagulation), HFpEF, HTN, HLD, hypothyroidism, prostate cancer status post seed radiation, melanoma; p/w shortness of breath and
weight gain of 14 pounds over the past 2 weeks.
Patient takes Lasix 80 mg PRN (would occasionally miss dose if he is going out).
He also endorsed to cough, and was prescribed antibiotic cefuroxime (with Tessalon) by his PCP which he has completed for 5 days.
His main complaint is worsening dyspnea, and orthopnea. He has also noticed increased swelling of his abdomen and legs.
He was sent to the ER by his PCP.'
Echo 08/08/2023-normal LV size and systolic function. Severe hypokinesis of the distal apical inferior wall and apical yepez. Mild concentric LVH. Ejection fraction 45 to 50%. Stage II diastolic dysfunction. Moderately enlarged RV size. Mildly
reduced RV ventricular function. Moderately dilated LA. Severely dilated RA. Moderate to severe mitral annular calcification. Mild to moderate MS. Mild MR. Aortic sclerosis without stenosis. Mild to moderate TR. Pulmonary artery pressure 45
mmHg
CVS: S1-S2 irregular
Chest: CTA B/L
Abdomen: Soft, NT / Bowel sounds present
Extremities: No edema
SHIPPING WEIGHER: Non focal exam
# Acute on chronic heart failure with preserved ejection fraction
BNP 1540
Lasix 80 mg IV BID -> PO Lasix per card (TRANSITION NURSE PO 80 mg daily). Monitor daily weight.
Updated echo this admission: LVEF decreased from 55% to 50% and there are now inferoapical wall motion abnormalities. Stage II diastolic dysfunction. The mitral valve is overall about the same/Mild-moderate mitral stenosis. The PA pressures
increased from 30 to 45-50 mmHg.
procalcitonin neg (of note, patient just completed antibiotic cefuroxime for 5 days TRANSITION NURSE)
Not hypoxic. Patient on room air
Weight was 113 kg on admission today is 101.26 kg.
Pt says admission weight was wrong.
# Persistent afib
s/p watchman
H/O Pacemaker 2019
not on anticoagulation now
Card discussed option of anticoagulation with RANDALL cardioversion. Pt is very concerned about ocular bleeding with anticoagulation as he already has vision loss in 1 eye.
He can further discuss rhythm control options with Dr. Bryson as an outpatient after diuresis.
Cont TRANSITION NURSE Tikosyn for now
Cont Toprol
Added ASA
# HTN-Cont TRANSITION NURSE Losartan, Toprol
# HLD-Continue Statin
# CAD status post cardiac stent x 5 and bypass surgery
# Hypothyroidism-Continue prior to admission Synthroid (history OF PARTIAL thyroidectomy)
# h/o prostate cancer status post seed radiation-Flomax
# h/o melanoma on chest
# PVD
# H/O Vertigo
# Obesity per BMI criteria
# Glaucoma R eye eye drop-Outpt F/U with plant operations engineer
History of vitrectomy and blind left eye
# DVT ppx:Lovenox SQ
# Full code
I personally checked pt weight on standing scale today
D/W Cards Lasix 80 mg for discharge
OK for discharge
D/w RN
Cost of Farxiga could not be checked at this point. Therefore cardiology will take care of without to order this as outpatient.
Discussed with daughter regarding updates and medicines and follow up
Discharge time 37 min
Anticipated Discharge: Today
Subjective/Interval History
-
Date of Service: August 12, 2023
Objective Data
-
Labs:
Laboratory Results
08/12/23
06:13
WBC 11.7 H
Hgb 13.4
Hct 40.3
Plt Count 144
Sodium 133 L
Potassium 3.8
Chloride 94 L
Carbon Dioxide 27
BUN 19
Creatinine 0.5 L
Glucose 158 H
Calcium 9.3
Vital Signs:
Vital Signs
Temp Pulse Resp BP Pulse Ox
97.7 F 79 17 121/65 94
08/12/23 11:50 08/12/23 11:50 08/12/23 11:50 08/12/23 11:50 08/12/23 11:50
I&O
08/11/23 08/12/23 08/13/23
06:59 06:59 06:59
Intake Total 1950 / 1950 1290 / 1290
Output Total 2795 / 2795 1800 / 1800
Balance -845 / -845 -510 / -510
[2023-08-12 14:51] LABS: ALT (SGPT) 61 U/L (0-50); AST (SGOT) 59 U/L (17-59); Albumin 3.9 g/dl (3.5-5.0); Alkaline Phosphatase 60 U/L (38-126); Direct Bilirubin 0.2 mg/dl (0.0-0.4); HDL Cholesterol 31 mg/dl; LDL Cholesterol, Calculated 35 mg/dl; Total Bilirubin 0.8 mg/dl (0.2-1.3); Total Cholesterol 92 mg/dl (50-199); Total Protein 6.4 g/dl (6.3-8.2); Triglyceride 130 mg/dl (10-149); Very Low Density Lipoprotein 26 mg/dl (0-30)
--- NOTE | 2023-08-12 15:31 | W.DS.TRANS ---
Addendum entered and electronically signed by Aries Blood MD 08/12/23 15:40:
Dictation- [id number]
Original Note:
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
-
Discharge Instructions:
Discharge Diagnosis/Procedures Acute on chronic heart failure with preserved
ejection fraction; Persistent atrial
fibrillation status post history of Watchman,
hypertension, hyperlipidemia, history of
coronary artery disease, hypothyroidism
Diet Low Cholesterol,Low Fat,As tolerated,Restrict
fluids to 64 oz,2 Gram Sodium
Activity As tolerated
Driving Restrictions No driving
Other Services VN
Specialty Instructions Weigh Daily
Instructions: *DCA Heart Failure Instructions
Stand-Alone Forms:
Changes to Home Medications: Yes
Discharge Medications:
DC Medications w/original date entered in [facility]
allopurinol 300 mg tablet 300 mg PO DAILY Gout 01/21/21
amitriptyline 10 mg tablet 10 mg PO HS Mental Health/Anxiety 01/21/21
atorvastatin 40 mg tablet 40 mg PO HS High cholesterol 01/21/21
celecoxib 200 mg capsule 200 mg PO BID Pain 01/21/21
dofetilide 250 mcg capsule 250 mcg PO BID Arrhythmia 01/21/21
ezetimibe 10 mg tablet 10 mg PO HS High cholesterol 01/21/21
losartan 50 mg tablet 50 mg PO DAILY Blood pressure 01/21/21
metoprolol succinate 50 mg tablet,extended release 24 hr 50 mg PO BID Blood pressure 01/21/21
tamsulosin 0.4 mg capsule 0.4 mg PO BID Urinary issue 01/21/21
mirabegron 50 mg tablet,extended release 24 hr (Myrbetriq) 50 mg PO HS Urinary issue 05/31/21
albuterol 90 mcg-budesonide 80 mcg/actuation HFA aerosol inhaler (Airsupra) 2 inh inhalation R Q4HPRN PRN sob 08/07/23
benzonatate 100 mg capsule 100 mg PO TIDPRN PRN cough 08/07/23
bisacodyl 5 mg tablet,delayed release (Dulcolax (bisacodyl)) 10 mg PO DAILYPRN PRN constipation 08/07/23
levothyroxine 200 mcg tablet 200 mcg PO DAILY Thyroid 08/07/23
loratadine 10 mg tablet (Claritin) 10 mg PO DAILY Allergies 08/07/23
aspirin 81 mg chewable tablet 81 mg PO DAILY Blood clot prevention/tx #0 tabs 08/12/23
furosemide 80 mg tablet 80 mg PO DAILY Fluid retention/Swelling #30 tabs 08/12/23
Home Medication Changes
lasix new
Pending Results: No
[2023-08-12 15:56] VITALS: BP 109/63
--- NOTE | 2023-08-12 16:58 | CM ---
Reviewed chart. Received consult for VN. Met with patient who stated that he does not want VN. Reviewed discharge with patient and IMM.
Plan: Case management will continue to follow and assist with discharge planning. Home.
--- NOTE | 2023-08-13 10:13 | W.HF.CON ---
Heart Failure
- LV Function
Left ventricular function study result: LV Ejection fraction >40%
Ejection Fraction Percentage: 45-50
- ARNI
Patient already on ARNI: No
Heart Failure ARNI Not Indicated: LV Ejection Fraction >/= 40%
- ACEI/ARB
Patient already on ACEI/ARB: Yes
- Beta Fernando
Patient already on Evidence Based Beta Fernando: Yes
- Mineralocorticord Receptor Antagonist
Patient already on MRA: No
Heart Failure MRA Not Indicated: LV Ejection Fraction > 40%
- SGLT-2 Inhibitor
Patient already on SGLT-2 Inhibitor: No
Heart Failure SGLT-2 Inhibitor Not Indicated: LV Ejection Fraction >40%
- Afib Anticoagulation
Patient already on Anticoagulation for Afib: No (watchman in place (known leak))
Heart Failure Afib Anticoagulation Contraindication: Hemorrhagic Tendencies
- NYHA CHF Classification
NYHA CHF Classification Level: Class III - Symptoms w/ min exertion, interferes w/ nml daily activity
- ACC/AHA Stage
ACC/AHA Stage: Stage C: Symptomatic Heart Failure
== END 2023-08-12 18:06 | disposition home or self-care (01) | DRG 291 ==
LOC: 3 WEST ACU 17:07
PROVIDERS: Physician Assistant; ADMITTING PHYSICIAN Internal Medicine; ATTENDING PHYSICIAN Hospitalist; EMERGENCY PHYSICIAN Emergency Medicine; FAMILY PHYSICIAN Family Medicine; OTHER PHYSICIAN Internal Medicine Cardiovascular Disease
PROC: 5A09357 Assistance with Respiratory Ventilation, Less than 24 Consecutive Hours, Continuous Positive Airway Pressure (ICD-10-PCS; 2023-08-08)
DX: I11.0 Hypertensive heart disease with heart failure (principal); I50.33 Acute on chronic diastolic (congestive) heart failure; I48.19 Other persistent atrial fibrillation; T82.538A Leakage of other cardiac and vascular devices and implants, initial encounter; I05.2 Rheumatic mitral stenosis with insufficiency; E03.9 Hypothyroidism, unspecified; Z95.1 Presence of aortocoronary bypass graft; Z95.5 Presence of coronary angioplasty implant and graft; I25.10 Atherosclerotic heart disease of native coronary artery without angina pectoris; E78.5 Hyperlipidemia, unspecified; G47.33 Obstructive sleep apnea (adult) (pediatric); N40.0 Benign prostatic hyperplasia without lower urinary tract symptoms; Z95.818 Presence of other cardiac implants and grafts; Z95.0 Presence of cardiac pacemaker; Z79.890 Hormone replacement therapy; Z79.899 Other long term (current) drug therapy; Z85.46 Personal history of malignant neoplasm of prostate; Z90.79 Acquired absence of other genital organ(s); Z92.3 Personal history of irradiation; Z85.820 Personal history of malignant melanoma of skin; Z88.5 Allergy status to narcotic agent; Z88.8 Allergy status to other drugs, medicaments and biological substances; Z82.49 Family history of ischemic heart disease and other diseases of the circulatory system
CPT/HCPCS: 71046; 80048; 80053; 80061; 82248; 83735; 83880; 84145; 84484; 85025; 85027; 93005; 93306; 96374; 97162; 97166; 97530; 99285; Q9950

== ENCOUNTER → 2023-08-26 11:57 | Outpatient (REF) | payer OTHER, SELFPAY ==
[2023-08-26 16:04] LABS: Blood Urea Nitrogen 26 mg/dl (9-20); Carbon Dioxide 25 mmol/L (22-30); Chloride 95 mmol/L (98-107); Glucose 236 mg/dl (70-99); Magnesium 2.3 mg/dl (1.6-2.3); Potassium 4.1 mmol/L (3.5-5.1); Sodium 133 mmol/L (135-145); eGFR > 60.00
== END ==
LOC: OLAB 11:57
PROVIDERS: ATTENDING PHYSICIAN Internal Medicine Cardiovascular Disease; FAMILY PHYSICIAN Family Medicine
DX: I50.33 Acute on chronic diastolic (congestive) heart failure (principal)
CPT/HCPCS: 80048; 83735

== ENCOUNTER → 2023-09-12 13:20 | Outpatient (REF) | payer OTHER, SELFPAY ==
[2023-09-12 14:13] LABS: Blood Urea Nitrogen 25 mg/dl (9-20); Calcium 8.8 mg/dl (8.4-10.2); Carbon Dioxide 28 mmol/L (22-30); Chloride 93 mmol/L (98-107); Glucose 209 mg/dl (70-99); Magnesium 1.7 mg/dl (1.6-2.3); Potassium 3.5 mmol/L (3.5-5.1); Sodium 131 mmol/L (135-145); eGFR > 60.00
== END ==
LOC: CLAB 13:20
PROVIDERS: ATTENDING PHYSICIAN Internal Medicine Cardiovascular Disease
DX: I50.33 Acute on chronic diastolic (congestive) heart failure (principal)
CPT/HCPCS: 36415; 80048; 83735

== ENCOUNTER → 2023-09-30 16:17 | Outpatient (REF) | payer OTHER, SELFPAY ==
[2023-09-30 18:59] LABS: Blood Urea Nitrogen 17 mg/dl (9-20); Calcium 9.1 mg/dl (8.4-10.2); Carbon Dioxide 25 mmol/L (22-30); Chloride 94 mmol/L (98-107); Glucose 232 mg/dl (70-99); Magnesium 2.3 mg/dl (1.6-2.3); Potassium 4.3 mmol/L (3.5-5.1); Sodium 129 mmol/L (135-145); eGFR > 60.00
== END ==
LOC: CLAB 16:17
PROVIDERS: ATTENDING PHYSICIAN Internal Medicine Cardiovascular Disease
DX: I50.33 Acute on chronic diastolic (congestive) heart failure (principal)
CPT/HCPCS: 36415; 80048; 83735

== ENCOUNTER 2023-10-24 12:37 | Emergency (ER) | payer OTHER, SELFPAY ==
[2023-10-24 12:41] VITALS: BP 126/79
--- NOTE | 2023-10-24 13:23 | ED.GENMED ---
Addendum entered and electronically signed by Corey Steven MD 10/25/23 15:15:
Patient returned 1 day after placement because of issues with the CPAP and the Merocel packing. Noted that she had a republican tonight. Patient is aware that taking it out slightly early could cause recurrent bleeding.
However clinically patient is nontoxic in no distress. There is no blood on the Merocel. No blood in the posterior pharynx. Packing was removed easily without difficulty. No bleeding from the left nares. No bleeding from the right nares.
Stable for discharge. Patient is aware to be extra careful about sneezing blowing his nose trauma etc. Instructed to return with any concerns or issues
Original Note:
History of Present Illness
General
Chief Complaint: Nose Bleed
Source: patient
Exam Limitations: none
Time Seen by Provider: 10/24/23 13:12
History of Present Illness
History of Present Illness:
88-year-old nosebleed left nares. Started last night. Some recurring bleeding today. Patient pinches the lower half of his nose. History of similar episodes. Usually self-induced. Patient does use CPAP at night. No other abnormal bleeding.
Patient clinically feels fine
Past History
Past History
ED Past Medical History: Arrthythmia, CAD, Cancer, HTN, Hypercholesterolemia, Hypothyroidism, Other and Other
ED Past Surgical History: Cardiac and Orthopedic
Social History
Tobacco: Non-smoker
Alcohol: Occasional
Drug: None
Living: alone
Family History
Family History: CAD
Review of Systems
Review of Systems
All Other Systems: Not applicable
Phy Exam
Physical Exam
Physical Exam:
Physical Exam
General: no apparent distress, not acutely ill
Neck: supple. Blood left nares. No active bleeding. Right nares clear. Pharynx clear.
Heart: s1/s2 regular rate and rhythm
Lungs: no acute respiratory distress
Neuro: alert and oriented. no focal neurological deficits
Skin: no rash
Psychiatric: well kept. interactive and cooperative
Course
Vital Signs
Initial and Last Documented VS:
Initial Vital Signs
Temp Pulse Resp BP Pulse Ox
97.3 F 56 16 126/79 98
10/24/23 12:41 10/24/23 12:41 10/24/23 12:41 10/24/23 12:41 10/24/23 12:41
Last Documented Vital Signs
Temp Pulse Resp BP Pulse Ox
97.3 F 60 20 134/64 99
10/24/23 12:41 10/24/23 14:42 10/24/23 14:42 10/24/23 14:42 10/24/23 14:42
Procedures
Nosebleed
Drug treatment: Epinephrine
Treatment: Merocel packing
Post treatment bleeding: none- good control
MDM/Problems Addressed
Differential Diagnosis Includes:
Left nares bleeding. Attempting to find a source at this time. Saline with epinephrine with a temporary packing at this time. Will reevaluate in 5 or 10 minutes
*Critical Care Note
Total Time (30-74mins, 75-104mins- exclusive of procedures): Not Applicable
Update Note
Update Note:
1450... Recheck no bleeding. Medically stable. Discharged to follow-up
ED Attending Note
-
Portions of this chart may have been created with voice recognition software.� Occasional wrong word or��sound alike� substitutions may have occurred due to the inherent limitations of voice recognition software.
Discharge Plan
Departure
Patient Disposition: Home (Routine Discharge)
Date of Disposition: 10/24/23
Time of Disposition: 14:53
Patient with high blood pressure during this ER visit?: Yes
Discharge Problem:
Left nares epistaxis
Instructions: Nosebleeds (DC), BLOOD PRESSURE
Prescriptions:
No Action
losartan 50 MG tablet
50 mg PO DAILY
atorvastatin 40 MG tablet
40 mg PO HS
dofetilide 250 MCG capsule
250 mcg PO BID
tamsulosin 0.4 MG capsule
0.4 mg PO BID
amitriptyline 10 MG tablet
10 mg PO HS
ezetimibe 10 MG tablet
10 mg PO HS
celecoxib 200 MG capsule
200 mg PO BID
metoprolol succinate 50 MG tablet extended release 24 hr
50 mg PO BID
allopurinol 300 MG tablet
300 mg PO DAILY
mirabegron [Myrbetriq] 50 MG tablet extended release 24 hr
50 mg PO HS
benzonatate 100 mg Capsule
100 mg PO TIDPRN PRN (Reason: cough)
bisacodyl [Dulcolax (bisacodyl)] 5 mg Tablet,Delayed Release (Dr/Ec)
10 mg PO DAILYPRN PRN (Reason: constipation)
loratadine [Claritin] 10 mg Tablet
10 mg PO DAILY
Airsupra 90-80 mcg/actuation Hfa Aerosol Inhaler
2 inh INHALATION R Q4HPRN PRN (Reason: sob)
Rx Instructions:
as a single dose; may repeat up to 6 doses per day (12 inhalations)
levothyroxine 200 mcg Tablet
200 mcg PO DAILY
furosemide 80 mg Tablet
80 mg PO DAILY Qty: 30 0RF
aspirin 81 mg Tablet,Chewable
81 mg PO DAILY Qty: 0 0RF
Referrals:
Earl Macario MD [Family Provider] -
Activity Restrictions/Additional Instructions:
Follow-up with ENT
As we discussed, you can return tomorrow late afternoon for a slightly early packing removal for the republican. I am here at 3 PM
Interventions
Interventions:
*Risk Screen - Suicide Last Done: 10/24/23 12:41
*General Assessment Last Done: 10/24/23 12:41
*Neglect/Abuse Screening Last Done: 10/24/23 12:41
ED-EENT Assessment Last Done: 10/24/23 13:11
Discharge Date and Time
Print Language: LITHUANIAN
[2023-10-24 14:42] VITALS: BP 134/64
== END 2023-10-24 15:11 | disposition home or self-care (01) ==
LOC: EMR 12:37
PROVIDERS: EMERGENCY PHYSICIAN Emergency Medicine; FAMILY PHYSICIAN Family Medicine
DX: R04.0 Epistaxis (principal); E03.9 Hypothyroidism, unspecified; E78.00 Pure hypercholesterolemia, unspecified; I10 Essential (primary) hypertension; I25.10 Atherosclerotic heart disease of native coronary artery without angina pectoris
CPT/HCPCS: 30901; 99282

== ENCOUNTER → 2023-11-29 14:52 | Outpatient (REF) | payer OTHER, SELFPAY | LOC: RCS 14:52 | PROVIDERS: ATTENDING PHYSICIAN Nurse Practitioner; FAMILY PHYSICIAN Family Medicine | DX: I48.0 Paroxysmal atrial fibrillation (principal); I50.32 Chronic diastolic (congestive) heart failure; I25.10 Atherosclerotic heart disease of native coronary artery without angina pectoris; I34.2 Nonrheumatic mitral (valve) stenosis | CPT/HCPCS: 93306; Q9950 ==

== ENCOUNTER 2023-12-20 17:35 | Inpatient (IN) | payer OTHER, SELFPAY ==
[2023-12-20 14:59] LABS: % Basophils 0.3 % (0-2); % Eosinophils 1.1 % (0-6); % Immature Granulocytes 0.3 % (0-0.5); % Lymphocytes 33.6 % (20.5-51.1); % Neutrophils 56.7 % (42.2-75.2); Absolute Eosinophils 0.1 10^3/uL (0-0.7); Absolute Lymphocytes 3.6 10^3/uL (1.2-3.4); Absolute Monocytes 0.9 10^3/uL (0.1-0.6); Hematocrit 40.2 % (39.0-52.0); Mean Corp Hgb Conc. 34.8 g/dL (33.0-37.0); Mean Corpuscular Hgb 34.1 pg (27.0-31.0); Mean Corpuscular Volume 97.8 fL (80.0-94.0); Nucleated Red Blood Cells % 0 % (-); Platelet Count 135 10^3/uL (130-400); Red Blood Cell Count 4.11 10^6/uL (4.70-6.10); Red Cell Dist. Width 15.3 % (11.5-14.5); White Blood Cell Count 10.6 10^3/uL (4.8-10.8)
[2023-12-20 15:00] VITALS: BP 111/66
[2023-12-20 15:14] LABS: ALT (SGPT) 28 U/L (0-50); AST (SGOT) 33 U/L (17-59); Albumin 4.5 g/dl (3.5-5.0); Alkaline Phosphatase 46 U/L (38-126); Blood Urea Nitrogen 36 mg/dl (9-20); Carbon Dioxide 24 mmol/L (22-30); Chloride 92 mmol/L (98-107); Glucose 184 mg/dl (70-99); Potassium 4.7 mmol/L (3.5-5.1); Sodium 129 mmol/L (135-145); Total Bilirubin 0.7 mg/dl (0.2-1.3); Total Protein 6.7 g/dl (6.3-8.2); eGFR > 60.00
[2023-12-20 15:15] VITALS: BMI 36.0
--- NOTE | 2023-12-20 15:20 | ED.GENMED ---
History of Present Illness
General
Chief Complaint: Weakness
Source: patient and family (Daughters)
Exam Limitations: none
Time Seen by Provider: 12/20/23 15:09
Nursing documentation reviewed up to this point in time: agreed with
History of Present Illness
History of Present Illness:
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
to the emergency room with his daughters for evaluation of generalized weakness. Daughters note that about 2 weeks ago he started on Farxiga (was started by PCP) for elevated A1c. Since then patient has had gradual increase in generalized
weakness. He says that he barely has the energy to get up out of bed. He has had nausea and poor appetite. No diarrhea. Denies chest pain, shortness of breath. Denies abdominal pain. Denies cough, URI symptoms. He has had some urinary urgency
but this is a chronic issue related to his prostate; no dysuria, no flank pain. No fever. Daughters note that over the past few days he has had some decreased urine output as well�typically urinates heavily after taking normal dose of Lasix,
lately has not been putting out as much urine.
Past History
Past History
ED Past Medical History: Arrthythmia, CAD, Cancer, HTN, Hypercholesterolemia, Hypothyroidism, Other and Other
ED Past Surgical History: Cardiac and Orthopedic
Social History
Tobacco: Non-smoker
Alcohol: Occasional
Drug: None
Living: alone
Family History
Family History: CAD
Review of Systems
Review of Systems
All Other Systems: ROS reviewed and negative except as documented in HPI and ROS
Constitutional: Reports fatigue; Denies fever
EENT: Denies sore throat or runny nose
Respiratory: Denies cough or trouble breathing
Cardiac: Denies chest pain or palpitations
ABD/GI: Reports nausea and anorexia; Denies abdominal pain, vomiting or diarrhea
: Denies dysuria, frequency or flank pain
Musculoskeletal: Denies edema, neck pain or back pain
Neurological: Denies headache
Phy Exam
Physical Exam
Physical Exam:
General: Awake, alert, oriented x3; laying comfortably in bed nontoxic
Head: Normocephalic, atraumatic
Eyes: Conjunctiva normal
Throat: Airway intact, handling secretions
Neck: Trachea midline, supple without meningismus
Lungs: Clear to auscultation bilaterally, no wheezing, rales, rhonchi
Heart: Regular rate and rhythm, no murmurs, gallops, or rubs
Abd: Soft, non distended, nontender
Neuro: Cranial nerves grossly intact, speech fluid, no focal weakness just generalized weakness in all extremities
Skin: Chronic venous stasis changes in the legs o rash
Extremities: No edema in extremities, equal pulses in all extremities
Scores
Heart Failure Risk
Heart Failure Risk Score: Not Applicable
Heart Score for Chest Pain Patients
STEMI patient?: Not applicable
Withdrawal Assessment of Alcohol
Withdrawal Assessment Completed?: Not applicable
Course
Orders/Labs/Results
Orders:
Orders
12/20/23 14:48
CMP [Comprehensive Metabolic Panel] Urgent
Complete Blood Count/With Diff Urgent
Lipase Urgent
Comment: ADDON
TSH Reflex To Free T4 Urgent
Comment: ADD ON
12/20/23 15:01
EKG [Electrocardiogram (*1)] Urgent
Reason for Study: Vertigo / Dizzy
EKG- Treatment ONCE
12/20/23 15:20
Interrogate Pacemaker- Treatment ONCE
12/20/23 15:24
Add On- LAB Urgent
Tests Added?: lipase
12/20/23 15:27
COVID-19 Antigen Urgent
Source: Nasal Swab
Urinalysis Reflex To Culture Urgent
Date Specimen was Collected: 12/20/23
Time Specimen was Collected: 15:20
Influenza A+B Rapid Molecular Urgent
MARIANA Source: Nasal Swab
Specimen Description:
12/20/23 15:29
CR Chest - 2 Views Urgent
Comment:
Reason For Exam: weakness--eval for pna
12/20/23 16:19
Add On- LAB Urgent
Tests Added?: TSH refles to T4
12/20/23 17:00
0.9% Sodium Chloride 1000 ml [Nss] 1,000 ml IV 200 mls/hr
Abnormal Lab Results
12/20/23 12/20/23
14:48 15:27
RBC 4.11 L 10^6/uL
(4.70-6.10)
MCV 97.8 H fL
(80.0-94.0)
MCH 34.1 H pg
(27.0-31.0)
RDW 15.3 H %
(11.5-14.5)
Absolute Lymphs (auto) 3.6 H 10^3/uL
(1.2-3.4)
Absolute Monos (auto) 0.9 H 10^3/uL
(0.1-0.6)
Sodium 129 L mmol/L
(135-145)
Chloride 92 L mmol/L
(98-107)
BUN 36 H mg/dl
(9-20)
Glucose 184 H mg/dl
(70-99)
Urine Glucose 3+ A
(Negative)
12/20/23 14:48
12/20/23 14:48
Vital Signs
Initial and Last Documented VS:
Initial Vital Signs
Temp Pulse Resp Pulse Ox
36.5 C 78 18 97
12/20/23 14:30 12/20/23 14:30 12/20/23 14:30 12/20/23 14:30
Last Documented Vital Signs
Temp Pulse Resp BP Pulse Ox
36.5 C 73 15 111/66 100
12/20/23 14:30 12/20/23 15:15 12/20/23 16:37 12/20/23 15:00 12/20/23 15:15
MDM/Problems Addressed
Differential Diagnosis Includes:
Wide differential diagnosis includes but not limited to: Medication side effect, dehydration, infection such as UTI or pneumonia or viral syndrome, anemia, electrolyte derangements, dysrhythmia
MDM/Problems Addressed:
88-year-old male presents for evaluation of progressive generalized weakness and nausea in the setting of recent initiation of Farxiga. Vitals and exam as above. Check labs including a CBC and a CMP, lipase. Check thyroid studies. Check
urinalysis. Swab for COVID and flu. Check an EKG and interrogate device. Will check chest x-ray. Monitor and reassess after the above.
Labs reviewed: CBC shows no clinically significant abnormalities. CMP shows mild hyponatremia (glucose 184, sodium corrects to 131). He has acute kidney injury with 50% increase in creatinine (baseline 0.6, today creatinine is 0.9). Urinalysis
negative for infection. COVID and flu negative. Chest x-ray shows no acute disease. EKG shows atrial paced rhythm. Suspect patient may have acute dehydration as a result of recent initiation of Farxiga. Will provide some fluids admit for fluids
and monitoring of creatinine level. Discussed with hospitalist.
Chronic conditions affecting care:
CHF, diabetes
*Radiology
Radiology exam reviewed: radiology read reviewed
*Pulse Oximetry
Patient hypoxic: no
*EKG
Interpreted by ED Provider?: Yes
Heart Rate: 66
Rate: normal
Rhythm: a-fib
[place]: left axis deviation
QRS Pattern: wide non-specific
*Critical Care Note
Total Time (30-74mins, 75-104mins- exclusive of procedures): Not Applicable
Data Reviewed
Review of Other/Old Records Reveals: Labs and Records
Source: patient, records and family
Patient Management
Discussion with other providers: Hospitalist (Discussed with hospitalist)
Escalation/DeEscalation of care consider admission/obs:
Admission indicated
ED Attending Note
-
Portions of this chart may have been created with voice recognition software.� Occasional wrong word or��sound alike� substitutions may have occurred due to the inherent limitations of voice recognition software.
Discharge Plan
Departure
Patient Disposition: Admit
Date of Disposition: 12/20/23
Time of Disposition: 16:51
Admit to doctor: Gina
Presentation/result/management discussed w/ accepting MD/DO: Hospitalist
Discharge Problem:
Acute hyponatremia, Acute dehydration
Prescriptions:
No Action
losartan 50 MG tablet
50 mg PO DAILY
atorvastatin 40 MG tablet
40 mg PO HS
dofetilide 250 MCG capsule
250 mcg PO BID
tamsulosin 0.4 MG capsule
0.4 mg PO BID
amitriptyline 10 MG tablet
10 mg PO HS
ezetimibe 10 MG tablet
10 mg PO HS
celecoxib 200 MG capsule
200 mg PO BID
metoprolol succinate 50 MG tablet extended release 24 hr
50 mg PO BID
allopurinol 300 MG tablet
300 mg PO DAILY
mirabegron [Myrbetriq] 50 MG tablet extended release 24 hr
50 mg PO HS
benzonatate 100 mg Capsule
100 mg PO TIDPRN PRN (Reason: cough)
bisacodyl [Dulcolax (bisacodyl)] 5 mg Tablet,Delayed Release (Dr/Ec)
10 mg PO DAILYPRN PRN (Reason: constipation)
loratadine [Claritin] 10 mg Tablet
10 mg PO DAILY
Airsupra 90-80 mcg/actuation Hfa Aerosol Inhaler
2 inh INHALATION R Q4HPRN PRN (Reason: sob)
Rx Instructions:
as a single dose; may repeat up to 6 doses per day (12 inhalations)
levothyroxine 200 mcg Tablet
200 mcg PO DAILY
furosemide 80 mg Tablet
80 mg PO DAILY Qty: 30 0RF
aspirin 81 mg Tablet,Chewable
81 mg PO DAILY Qty: 0 0RF
Interventions
Interventions:
*Risk Screen - Suicide Last Done: 12/20/23 14:30
*General Assessment Last Done: 12/20/23 14:30
ED- Fall Risk Assessment Last Done: 12/20/23 15:17
*ED COVID-19 Vaccine History Last Done: 12/20/23 14:30
ED- Cardiac Assessment Last Done: 12/20/23 15:17
ED- Neurological Assessment Last Done: 12/20/23 15:17
ED- Pulmonary Assessment Last Done: 12/20/23 15:17
Discharge Date and Time
Print Language: KENYAN
[2023-12-20 15:59] LABS: Urine Albumin Negative (Neg - Trace); Urine Bilirubin Negative (Negative); Urine Character Clear (Clear); Urine Color Yellow; Urine Glucose 3+ (Negative); Urine Ketone Negative (Negative); Urine Leukocyte Negative (Negative); Urine Nitrite Negative (Negative); Urine Occult Blood Negative (Negative); Urine Urobilinogen Negative (Neg - 1+)
[2023-12-20 16:02] LABS: COVID-19 Antigen Negative (Negative)
[2023-12-20 16:29] LABS: Lipase 187 U/L (23-300)
--- NOTE | 2023-12-20 16:56 | HPS.HSE ---
Addendum entered and electronically signed by Rob Fuentes MD 12/20/23 18:06:
I saw and examined the patient.
The DELIVERY RN or PA's note was reviewed and I agree with the note.
Comment:
This note serves as an addendum to the H&P by pipe coverer ANGELICA Kristina MAHARAJ
HPI
88M HX hypertension, hyperlipidemia, Chr HFpEF, Pesisitent AF, status post Watchman procedure, DMT2 BPH, legally blind (status post left retinal detachment and right retinal artery occlusion) BiB daughter daughters for evaluation of generalized
weakness.
- He was started on Farxiga on November 19, since then he is getting weaker.
- reports nausea, vomiting and upset stomach
- reports drowsy more than usual. and dizzy
ROS:
Denies chest pain, shortness of breath. Denies cough, URI symptoms.
PHX; see ABOVE
Vital Signs
Temp Pulse Resp BP Pulse Ox
97.7 F 73 15 111/66 100
12/20/23 14:30 12/20/23 15:15 12/20/23 16:37 12/20/23 15:00 12/20/23 15:15
PE
Gen:Not toxic , alert
HEENT: anicteric
Neck:no JVD
Lungs: symmetric AE, no rales
Cor: Irregular
Abdomen: benign
FRUIT AND VEGETABLE INSPECTOR:AAO3
MS:no edema pripherally
Psych:nl mood and affect
Data
unremarkable CBC
Laboratory Tests
09/30/23 12/20/23 12/20/23
09:00 14:48 15:27
Sodium 129 L 129 L
Chloride 94 L 92 L
BUN 17 36 H
Creatinine 0.6 L 0.9
Serum Osmolality
TSH (Reflex) 1.29
SARS-CoV-2 Antigen Negative
12/20/23
17:46
Sodium
Chloride
BUN
Creatinine
Serum Osmolality Pending
TSH (Reflex)
SARS-CoV-2 Antigen
11/29/23 ECHO
1. Normal left ventricular size and wall thickness with equivocal apical septal, apical lateral, and apical hypokinesis, EF 60%. Stage II diastolic dysfunction.
2. Mitral annular calcification with thickening and mild restriction of leaflet motion. Mild mitral stenosis, peak/mean mitral valve gradients 12/8 mmHg with mild to moderate mitral regurgitation and marked left atrial dilatation
3. Aortic sclerosis without stenosis or regurgitation
4. Probably dilated and hypokinetic right ventricle with pacing wire seen, normal right atrium, and pulmonary artery systolic pressure of 36 mmHg
In July there was severe hypokinesis of the distal apical inferior and apical wall with EF 45-50%.
The right ventricle was moderately dilated and hypokinetic. Pulmonary artery pressure was 45-50 mmHg systolic
ASSESSMENT & PLAN
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
- of note: recently started on Farxiga for diabetes as off November 19
- Hold Lasix
- s/p 1L NS at ER
- fluid restriction 1000 cc
- obtain urine Na, osmolality, serum osmolality
- Nephrology consulted
Chronic HF pEF : clinically not in acute HF , euvolemic
- hold Lasix due to low Na
- cont .Entresto
- Hold spironolactone
- check proBNP
Persistent AF : s/p watchman
HX Pacemaker 2018
- not on anticoagulation now
- Cont HOUSE SUPERVISOR Tikosyn for now
- Cont Toprol
- on HOUSE SUPERVISOR ASA
T2DM
- Hold Farxiga
- ISS low
- ADA diet
Hypothyroidism
HX F PARTIAL thyroidectomy
- nl TSH
- on Synthroid
DVT Px: SQH
Full code
IP TLM
Original Note:
Family Physician
<LENI Mo - Last Filed: 12/20/23 17:48>
-
Family Physician:
Chief Complaint
<LENI Mo - Last Filed: 12/20/23 17:48>
-
Generalized weakness
History of Present Illness
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
to the emergency room with his daughters for evaluation of generalized weakness. patient was started on Farxiga on November 19, since then he is getting weaker. patient stated nausea, vomiting and upset stomach. he vomited on Saturday. he is been
sleeping more than usual. stated dizzy. now he has low urine output. Denies chest pain, shortness of breath. Denies cough, URI symptoms.
noted low sodium. gave normal saline in ER. admitting for further management.
<Rob Fuentes MD - Last Filed: 12/20/23 18:02>
History of Present Illness
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
to the emergency room with his daughters for evaluation of generalized weakness. patient was started on Farxiga on November 19, since then he is getting weaker. patient stated nausea, vomiting and upset stomach. he vomited on Saturday. he is been
sleeping more than usual. stated dizzy. now he has low urine output. Denies chest pain, shortness of breath. Denies cough, URI symptoms.
noted low sodium. gave normal saline in ER. admitting for further management.
Medical History
<LENI Mo - Last Filed: 12/20/23 17:48>
Past Medical History
Past Medical History: Reports Other
Additional Past Medical History:
Cystitis
Chronic heart failure
Bladder cancer
Venous insufficiency
Adult osteomyelitis
Basal cell carcinoma
Hypertension
A-fib
Past Surgical History: Reports Other
Additional Past Surgical History:
Coronary artery bypass grafting
Hemorrhoidectomy
Partial thyroidectomy
Prostatectomy
Lap alfreda
Left hip surgery
Pacemaker
Retinal detachment surgery
Social History
Tobacco: Non-smoker
Alcohol: Occasional
Drug: None
Personal: Single
Living: Alone
Family History
Family History: Not pertinent
Allergies / Home Medications
Allergies reflects when Allergies were last updated in [employer].
Home Medications with original date entered in [employer]
Allergy/Medication List:
Allergies
Allergy/AdvReac Type Severity Reaction Status Date / Time
loteprednol [From Lotemax] Allergy Unknown Unknown Verified 12/20/23 14:38
morphine AdvReac Severe Hallucinati Verified 12/20/23 14:38
ons
Home Medications
allopurinol 300 mg tablet 300 mg PO DAILY Gout 01/21/21
amitriptyline 10 mg tablet 10 mg PO HS Mental Health/Anxiety 01/21/21
atorvastatin 40 mg tablet 40 mg PO QPM High cholesterol 01/21/21
celecoxib 200 mg capsule 200 mg PO DAILY Pain 01/21/21
dofetilide 250 mcg capsule 250 mcg PO BID Arrhythmia 01/21/21
ezetimibe 10 mg tablet 10 mg PO QPM High cholesterol 01/21/21
metoprolol succinate 50 mg tablet,extended release 24 hr 50 mg PO BID Blood pressure 01/21/21
tamsulosin 0.4 mg capsule 0.4 mg PO BID Urinary issue 01/21/21
mirabegron 50 mg tablet,extended release 24 hr (Myrbetriq) 50 mg PO QPM Urinary issue 05/31/21
bisacodyl 5 mg tablet,delayed release (Dulcolax (bisacodyl)) 10 mg PO DAILYPRN PRN constipation 08/07/23
aspirin 81 mg chewable tablet 81 mg PO DAILY Blood clot prevention/tx #0 tabs 08/12/23
carboxymethylcellulose sodium 0.5 % eye drops (Refresh Tears) 1 drp BOTH EYES QIDPRN PRN dry eyes 12/20/23
cholecalciferol (vitamin D3) 50 mcg (2,000 unit) tablet (Vitamin D3) 50 mcg PO DAILY 12/20/23
dapagliflozin propanediol 10 mg tablet (Farxiga) 10 mg PO DAILY 12/20/23
dorzolamide 2 % eye drops 1 drp RIGHT EYE BID 12/20/23
furosemide 80 mg tablet 80 mg PO BID@0800,1400 Fluid retention/Swelling 12/20/23
levothyroxine 125 mcg tablet 125 mcg PO DAILY 12/20/23
potassium chloride 20 mEq tablet,extended release 20 meq PO DAILY 12/20/23
sacubitril 24 mg-valsartan 26 mg tablet (Entresto) 1 tab PO BID 12/20/23
spironolactone 25 mg tablet 25 mg PO DAILY 12/20/23
Review of Systems
<LENI Mo - Last Filed: 12/20/23 17:48>
-
Constitutional: Reports No Symptoms
EENT: Reports No Symptoms
Respiratory: Reports No Symptoms
Cardiac: Reports No Symptoms
Abdomen/GI: Reports Nausea and Vomiting
: Reports Other (decreased urine output)
Musculoskeletal: Reports No Symptoms
Skin: Reports No Symptoms
Neurological: Reports Weakness
Endocrine: Reports No Symptoms
Hematologic/Lymphatic: Reports No Symptoms
Psych: Reports No Symptoms
Physical Exam
<LENI Mo - Last Filed: 12/20/23 17:48>
Vital Signs
Vital Signs
Temp Pulse Resp BP Pulse Ox
97.7 F 73 15 111/66 100
12/20/23 14:30 12/20/23 15:15 12/20/23 16:37 12/20/23 15:00 12/20/23 15:15
Physical Exam
General: Well Developed, Well Nourished and No Apparent Distress
HEENT: NormoCephalic, Moist mucous membranes and Atraumatic
Respiratory: Clear
Cardiac: S1/S2 and Regular Rhythm; No Murmur or Rub
GI: Soft, Non Tender, Non Distended and Normal Bowel Sounds; No Organomegaly
Rectal: Deferred by Provider
Musculoskeletal: No Clubbing, No Cyanosis and No Edema
Skin: No Rash
Neuro: AO x 3 and Nonfocal/grossly intact
Psych: Calm
Laboratory Results
<LENI Mo - Last Filed: 12/20/23 17:48>
-
12/20/23 14:48
12/20/23 14:48
Laboratory Results
Total Bilirubin 0.7 mg/dl (0.2-1.3) 12/20/23 14:48
AST 33 U/L (17-59) 12/20/23 14:48
ALT 28 U/L (0-50) 12/20/23 14:48
Alkaline Phosphatase 46 U/L (38-126) 12/20/23 14:48
Lipase 187 U/L (23-300) 12/20/23 14:48
Data Reviewed
<LENI Mo - Last Filed: 12/20/23 17:48>
-
Lab Data: Labs Reviewed by me
Impression/Plan
<LENI Mo - Last Filed: 12/20/23 17:48>
-
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
-Patient was recently started on Farxiga for diabetes on November 19
-patient received 1l in ER
-ctm
-fluid restriction
-obtain urine na, osmolality, serum osmolality
-nephrology consulted
#Chronic heart failure with preserved ejection fraction
-ECHo with LVEF decreased from 55% to 50% and there are now inferoapical wall motion abnormalities. Stage II diastolic dysfunction. The mitral valve is overall about the same/Mild-moderate mitral stenosis. The PA pressures increased from 30 to
45-50 mmHg.
-hold Lasix
-Entresto continued
-Hold spironolactone
-cardiology consult
# Persistent afib
-s/p watchman
-H/O Pacemaker 2018
-not on anticoagulation now
-Cont HOUSE SUPERVISOR Tikosyn for now
Cont Toprol
- ASA
#Type 2 diabetes
-Hold farxiga
-Sliding scale
-Carb controlled diet
# HTN- Toprol
# HLD-Continue Statin
# CAD status post cardiac stent x 5 and bypass surgery
# Hypothyroidism-Continue prior to admission Synthroid (history OF PARTIAL thyroidectomy)
# h/o prostate cancer status post seed radiation-Flomax,Myrbetriq continued
# h/o melanoma on chest
# PVD
# H/O Vertigo
# Obesity per BMI criteria
# Glaucoma R eye eye drop
#History of vitrectomy
#Legally blind
-Eyedrops continued
## Gout
-Allopurinol continued
# anxiety
-amitriptyline continued
# DVT ppx:Lovenox SQ
# DNR
[2023-12-20] MEDS: NSS 1000 IV (17:26)
[2023-12-20 17:34] LABS: TSH Reflex To Free T4 1.29 uIU/ml (0.47-4.68)
[2023-12-20 19:21] VITALS: BP 107/74
--- NOTE | 2023-12-20 19:36 | PTCARENOTE ---
Pt received from ED, this RN assisted pt to side of the bed to use urinal with assistance of two personnel and rolling walker. AAOx3. Pt resting comfortably in bed at this time with daughter at bedside.
[2023-12-20] MEDS: LIPITOR 40 MG PO (20:06)
[2023-12-20] MEDS: ENTRESTO 24 MG/26 MG 1 TAB PO (20:06)
[2023-12-20] MEDS: FLOMAX 0.4 MG PO (20:07)
[2023-12-20] MEDS: ZETIA 10 MG PO (20:08)
[2023-12-20] MEDS: TOPROL XL 50 MG PO (20:08)
[2023-12-20] MEDS: LOVENOX 40 MG SC (20:08)
[2023-12-20] MEDS: TIKOSYN 250 MCG PO (20:09)
[2023-12-20] MEDS: MYRBETRIQ EXTENDED RELEASE 50 MG PO (20:09)
[2023-12-20] MEDS: TRUSOPT 2% OPHTHALMIC SOLUTION 1 DROP RIGHT EYE (20:10)
[2023-12-20 20:14] LABS: Osmolality Serum 278 mOsm/kg (275-300)
[2023-12-20] MEDS: ELAVIL 10 MG PO (22:44)
[2023-12-20 22:49] LABS: Glucose - Point of Care 165 mg/dl (70-99)
[2023-12-20 23:19] VITALS: BP 104/58
[2023-12-21] VITALS (7 sets, daily range): BP systolic 109–129; BP diastolic 60–77; PULSE 71; O2SAT 99; BMI 35.3
[2023-12-21 01:18] LABS: Osmolality Urine 445 mOsm/kg (300-900)
[2023-12-21 01:21] LABS: Urine Sodium 31 mmol/L (30-90)
[2023-12-21] MEDS: BENADRYL 6.25 MG IV (03:54)
[2023-12-21] MEDS: FLUSH (NSS) 2 FLUSH IV (03:55)
--- NOTE | 2023-12-21 03:59 | PTCARENOTE ---
Patient c/o itchiness and some twitching. He says he is having difficulty sleeping due to this. No trouble breathing or other complaints. Advised covering provider. Benadryl provided as ordered.
[2023-12-21 05:12] LABS: Hematocrit 37.9 % (39.0-52.0); Hemoglobin 12.7 g/dL (13.0-18.0); Mean Corp Hgb Conc. 33.5 g/dL (33.0-37.0); Mean Corpuscular Hgb 33.3 pg (27.0-31.0); Mean Corpuscular Volume 99.5 fL (80.0-94.0); Mean Platelet Volume 10.3 fL (7.4-10.4); Platelet Count 127 10^3/uL (130-400); Red Blood Cell Count 3.81 10^6/uL (4.70-6.10); Red Cell Dist. Width 15.4 % (11.5-14.5); White Blood Cell Count 11.4 10^3/uL (4.8-10.8)
[2023-12-21 05:17] LABS: Blood Urea Nitrogen 25 mg/dl (9-20); Calcium 8.9 mg/dl (8.4-10.2); Carbon Dioxide 27 mmol/L (22-30); Chloride 96 mmol/L (98-107); Estimated Creatinine Clearance 74 ml/min; Glucose 148 mg/dl (70-99); Potassium 4.5 mmol/L (3.5-5.1); Sodium 132 mmol/L (135-145); eGFR > 60.00
[2023-12-21] MEDS: SYNTHROID 125 MCG PO (05:26)
[2023-12-21 07:52] LABS: Glucose - Point of Care 156 mg/dl (70-99)
[2023-12-21] MEDS: FLOMAX 0.4 MG PO ×2 (08:24→19:46)
[2023-12-21] MEDS: LOW STRENGTH ASPIRIN 81 MG PO (08:24)
[2023-12-21] MEDS: TOPROL XL 50 MG PO ×2 (08:24→19:46)
[2023-12-21] MEDS: ZYLOPRIM 300 MG PO (08:24)
[2023-12-21] MEDS: ENTRESTO 24 MG/26 MG 1 TAB PO ×2 (08:24→19:45)
[2023-12-21] MEDS: CELEBREX 200 MG PO (08:24)
[2023-12-21] MEDS: TIKOSYN 250 MCG PO ×2 (08:24→19:45)
[2023-12-21] MEDS: KCL 20 MEQ PO (08:25)
[2023-12-21] MEDS: NOVOLOG FLEXPEN-LOW RESISTANCE 1 UNITS SC (08:26)
[2023-12-21] MEDS: TRUSOPT 2% OPHTHALMIC SOLUTION 1 DROP RIGHT EYE ×2 (08:30→19:46)
[2023-12-21 08:35] LABS: Absolute Neutrophils -Man Diff 4.5 10^3/uL (1.4-6.5); Atypical Lymphocytes 15 %; Band Neutrophils 2 % (0-3); Eosinophils 1 % (0-6); Lymphocytes 32 % (20-51); Monocytes 12 % (2-9); Normal RBC Morphology Yes; Platelets Checked Yes; Segmented Neutrophils 38 % (42-75); Total Cells Counted 100
[2023-12-21 09:18] LABS: Glycohemoglobin (HgbA1c) 7.5 % (4.0-5.6)
--- NOTE | 2023-12-21 10:45 | W.PN.HOSP.TC ---
Today's Communication/Plan
-
Repeat BMP
Fluid restrict
Hold lasix, aldactone, SGLT2i
Neph to eval
Cards to eval
on DC consider forgoing SGLT2i for DPP4i or Metformin
Assessment / Plan
Assessment / Plan
Imaging
CXR
IMPRESSION:
No acute cardiopulmonary process.
Physical Exam
NAD, resting comfortably in bed
Scleral anicteric
Moist mucous membranes
No JVD
CTA bilateral
Normal S1-S2 2/6 murmur, irregular
Soft nontender nondistended bowel sounds active
No peripheral pitting edema, bilateral lower extremity chronic venous stasis changes
Moves extremities spontaneously
AAOx3
Assessment and Plan
Hyponatremia, concern for SIADH
-Sodium improving
-Fluid restrict
-Hold Farxiga Lasix for now
-Nephrology consulted
-Repeat BMP in the a.m.
Diabetes (recent dx)
-A1c 7.5
-Outpatient PCP started SGLT2i
-Now presenting hyponatremic
-Does nto want to be on SGLT2i any further
-Will discuss with endo starting DPP4i such as low dose sitagliptin or metformin but reluctant in the setting of HF
-Accucheck
-BG 140-180
-CCDiet
-SSI low
HFpEF, stage II diastolic dysfunction, EF 60%
-Euvolemic on exam
-Hold lasix for now, hold aldacton
-Continue Entresto, BB
HLD
-Continue statin and zetia
BPH
-Continue flomax
Hypothyroidism
-Continue levothyroxine
Gout
-Cotninue allopurinol
Persistent AFib
-Contine tikosyn, BB
-Not on AC
-S/p Watchman
Anticipated Discharge: 24 - 48 hours
Subjective/Interval History
-
Date of Service: December 21, 2023
Seen and examined. No new complaints. No acute overnight events
States he is feeling significantly better
Sitting in bedside chair
Moved his bowels on the commode
Objective Data
-
Labs:
Laboratory Results
12/21/23
04:25
WBC 11.4 H
Hgb 12.7 L
Hct 37.9 L
Plt Count 127 L
Sodium 132 L
Potassium 4.5
Chloride 96 L
Carbon Dioxide 27
BUN 25 H
Creatinine 0.8
Glucose 148 H
Calcium 8.9
Vital Signs:
Vital Signs
Temp Pulse Resp BP Pulse Ox
98.0 F 67 20 121/64 97
12/21/23 07:51 12/21/23 08:24 12/21/23 07:51 12/21/23 08:24 12/21/23 07:51
I&O
12/20/23 12/21/23 12/22/23
06:59 06:59 06:59
Intake Total 800 / 800
Output Total 1550 / 1550
Balance -750 / -750
--- NOTE | 2023-12-21 11:25 | CON.CAR ---
Addendum entered and electronically signed by Corey Bryson MD 12/21/23 12:56:
Patient seen, interviewed and examined by me.
Well-appearing, no acute distress
Irregular rate and rhythm with normal S1 and S2, no S3 no S4. There is a grade 1/6 apical holosystolic murmur and no rubs. PMI is normally placed.
Lungs are clear to auscultation bilaterally without wheezes rales or rhonchi.
Abdomen soft nontender nondistended with normoactive bowel sounds
Extremities show trace pretibial edema bilaterally no clubbing or cyanosis.
Neurologic exam is grossly nonfocal.
Admitted primarily with generalized weakness 12/20/23 and found to have hyponatremia, possible SIADH
He tells me that soon after SGLT2 inhibitor was added he noted increased diuresis and marked increase in thirst for which he drank large amounts of free water.
Currently Lasix on hold.
Likely can resume soon but would resume at a lower dose. As an outpatient was on 80 mg twice daily, would consider resuming at 40 mg twice daily. Would consider resuming tomorrow.
He has been maintaining sinus rhythm, atrial paced. Stable corrected QT interval. Continue current dose of dofetilide
Original Note:
Consultation
Consultation Request
Date/Time Consultation Requested: 12/21/23
Date/Time Consultation Performed: 12/21/23
Requesting Provider: Dr. Genaro Pittman
Performing Provider: Dr. Corey Bryson
Reason for Consultation: Hyponatremia, chronic Lasix use
Medical History
-
History of Present Illness:
Patient came to [facility] with weakness and was admitted with hyponatremia. Patient reports that his PCP started Farxiga 10 mg daily about 4 weeks ago. He started to feel weak about 2 weeks ago. Patient says that he has been very thirsty and drinking
more water than usual. Patient reports he is following his standard salt restriction. Patient denies SOB, orthopnea or weight gain. Patient with a h/o HFpEF and EF was a bit lower at 45% by echo 08/08/23, but then improved to 60% by echo 11/29/23.
Patient also with h/o pAfib and takes Tikosyn 250 mcg q 12 hours and has been maintaining SR most of the time. He is not chronically on OAC due to watchman in place and h.o eye bleeds resulting in vision loss.
PMH:
Chronic HFpEF
Paroxysmal Afib
A paced with PACs on admission ECG
Chronic Tikosyn therapy
Not chronically anticoagulated due to Watchman in place and ocular bleeding
s/p Watchman implant 06/13/21 with subsequent discovery of 3mm leak
s/p Medtronic PPM implant 2017
h/o prostate CA, s/p prostatectomy and radiation 2006
CAD s/p CABG x5 1995
HTN
HLD
HOWARD/CPAP
BPH
Hypothyroidism
Pulmonary nodules
Past Medical History
Past Medical History: Other
Past Surgical History: Cardiac (ABG, Medtronic PPM, Watchman device), Orthopedic, Urological (prostatectomy) and Other (partial thyroidectomy)
Social History
Tobacco: Non-Smoker
Alcohol: Occasional
Drug: None
Personal:
Living: Alone
Family History
Family History: CAD and Cancer
Allergies / Home Medications
Allergy/AdvReac Type Severity Reaction Status Date / Time
loteprednol [From Lotemax] Allergy increase Verified 12/20/23 18:54
intraocular
pressure
morphine Allergy Hallucinations-per Verified 12/20/23 18:54
eclinical
record
�Medication �Instructions �Recorded �Confirmed �Type
allopurinol 300 mg tablet 300 mg PO DAILY Gout 01/21/21 12/20/23 History
amitriptyline 10 mg tablet 10 mg PO HS Mental Health/Anxiety 01/21/21 12/20/23 History
atorvastatin 40 mg tablet 40 mg PO QPM High cholesterol 01/21/21 12/20/23 History
celecoxib 200 mg capsule 200 mg PO DAILY Pain 01/21/21 12/20/23 History
dofetilide 250 mcg capsule 250 mcg PO BID Arrhythmia 01/21/21 12/20/23 History
ezetimibe 10 mg tablet 10 mg PO QPM High cholesterol 01/21/21 12/20/23 History
metoprolol succinate 50 mg 50 mg PO BID Blood pressure 01/21/21 12/20/23 History
tablet,extended release 24 hr
tamsulosin 0.4 mg capsule 0.4 mg PO BID Urinary issue 01/21/21 12/20/23 History
mirabegron 50 mg tablet,extended 50 mg PO QPM Urinary issue 05/31/21 12/20/23 History
release 24 hr (Myrbetriq)
bisacodyl 5 mg tablet,delayed 10 mg PO DAILYPRN PRN constipation 08/07/23 12/20/23 History
release (Dulcolax (bisacodyl))
aspirin 81 mg chewable tablet 81 mg PO DAILY Blood clot 08/12/23 12/20/23 Rx
prevention/tx #0 tabs
carboxymethylcellulose sodium 0.5 1 drp BOTH EYES QIDPRN PRN dry eyes 12/20/23 12/20/23 History
% eye drops (Refresh Tears)
cholecalciferol (vitamin D3) 50 50 mcg PO DAILY Supplement 12/20/23 12/20/23 History
mcg (2,000 unit) tablet (Vitamin
D3)
dapagliflozin propanediol 10 mg 10 mg PO DAILY Diabetes 12/20/23 12/20/23 History
tablet (Farxiga)
dorzolamide 2 % eye drops 1 drp RIGHT EYE BID Eye Condition 12/20/23 12/20/23 History
furosemide 80 mg tablet 80 mg PO BID@0800,1400 Fluid 12/20/23 12/20/23 History
retention/Swelling
levothyroxine 125 mcg tablet 125 mcg PO DAILY Thyroid 12/20/23 12/20/23 History
potassium chloride 20 mEq 20 meq PO DAILY Supplement 12/20/23 12/20/23 History
tablet,extended release
sacubitril 24 mg-valsartan 26 mg 1 tab PO BID Heart Failure 12/20/23 12/20/23 History
tablet (Entresto)
spironolactone 25 mg tablet 25 mg PO DAILY Fluid 12/20/23 12/20/23 History
Retention/Swelling
Review of Systems
-
History Source: Patient
All other systems: Negative unless noted
Physical Exam
Vital Signs
Temp Pulse Resp BP Pulse Ox
98.0 F 67 20 121/64 97
12/21/23 07:51 12/21/23 08:24 12/21/23 07:51 12/21/23 08:24 12/21/23 07:51
GEN: NAD. AAOx3
HEENT: MMM
LUNGS: CTA B/L. No audible wheeze
CV: Afib on tele. Irreg irreg. No murmur
ABD: +BS, ND, NT, soft
NEURO: Gross non-focal
SKIN: Warm, dry and pink. No rash
Lab Results
12/21/23 04:25
12/21/23 04:25
Impression / Plan
-
PCP: Earl Macario MD
CDY: [place] Bryson MD
Impression:
Admitted with generalized weakness 12/20/23
Hyponatremia, possible SIADH
Chronic HFpEF
Paroxysmal Afib
A paced with PACs on admission ECG
Chronic Tikosyn therapy
Not chronically anticoagulated due to Watchman in place and ocular bleeding
s/p Watchman implant 06/13/21 with subsequent discovery of 3mm leak
s/p Medtronic PPM implant 2017
h/o prostate CA, s/p prostatectomy and radiation 2006
CAD s/p CABG x5 1995
HTN
HLD
HOWARD/CPAP
BPH
Hypothyroidism
Pulmonary nodules
RANDALL 09/21/2021: EF 55 to 60%, mild to moderate mitral stenosis with moderate MR, watchman in place without device related thrombus and there is a small 3 mm leak that is best seen at 135 and 0 degrees
Echo 08/08/23: EF 45 to 50%, severe hypokinesis of distal apical inferior wall and apical yepez, mild concentric LVH, stage II diastolic dysfunction, moderately enlarged RV, moderately dilated left atrium, severely dilated right atrium, moderate to
severe MAC, mild to moderate MS with mean gradients across the valve 5 mmHg, mild MR, aortic sclerosis, mild to moderate TR, PAP 40 to 5 to 50 mmHg, dilated aortic root at 4.2 cm
Echo 11/29/23: EF 60%, mild MS peak/mean 12/8 mmHg, mild to moderate MR
Plan:
-Patient came to [facility] with weakness and was admitted with hyponatremia. Patient reports that his PCP started Farxiga 10 mg daily about 4 weeks ago. He started to feel weak about 2 weeks ago. Patient says that he has been very thirsty and drinking
more water than usual. Patient reports he is following his standard salt restriction. Patient denies SOB, orthopnea or weight gain. Patient with a h/o HFpEF and EF was a bit lower at 45% by echo 08/08/23, but then improved to 60% by echo 11/29/23.
Patient also with h/o pAfib and takes Tikosyn 250 mcg q 12 hours and has been maintaining SR most of the time. He is not chronically on OAC due to watchman in place and h.o eye bleeds resulting in vision loss.
-Agree with nephrology consultation. Sodium has been low on and off as far back as 2021.
-Outpatient dose of Lasix 80 mg BID on hold since admission. 1 L NS given overnight.
-Dry weight at last d/c on 08/12/23 was 223 lbs and patient currently weighs 231 lbs. CXR without acute changes. Will add on pro-BNP.
-Eventually restart Lasix.
-Patient with h/o paroxysmal Afib and burden has been low since 09/11/23 when he was admitted for acute HF. Would continue Tikosyn 250 mcg q 12 hours. Overall Afib burden is low and if patient recurs with Afib and burden is significant then could
consider switching to amiodarone.
-ECG reviewed by me with A sensing and PACs
-Patient with known 3 mm leak around Watchman. Patient with watchman in place and would not be interested in ever restarting OAC if needed for RANDALL/CV etc. due to h/o eye bleeds and vision loss.
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
recurrent retinal detachments.
-Cont aspirin 81 mg daily. Cardiology previously confirmed appropriateness of aspirin with patient's primary police judge on 08/09/23
-EF was down a bit at 45-50% by echo 08/08/23. EF improved to 60% by repeat echo 11/29/23.
-Outpatient doses of atorvastatin 40 mg daily and Zetia 10 mg daily continued. Recheck CVE
-Appreciate help of CM on checking cost of Farxiga, CM notes reviewed and pharmacist at patient's pharmacy requested Rx be sent, so e-scribed Farxiga Rx 08/12/23
-Outpatient doses of Toprol XL 50 mg BID and Entresto 24/26 mg BID have been continued
[2023-12-21 12:22] LABS: Glucose - Point of Care 144 mg/dl (70-99)
[2023-12-21] MEDS: NOVOLOG FLEXPEN-LOW RESISTANCE SC ×2 (12:40→16:50)
[2023-12-21 16:48] LABS: Glucose - Point of Care 131 mg/dl (70-99)
[2023-12-21] MEDS: LOVENOX 40 MG SC (17:10)
[2023-12-21] MEDS: ZETIA 10 MG PO (17:10)
[2023-12-21] MEDS: LIPITOR 40 MG PO (17:10)
[2023-12-21] MEDS: MYRBETRIQ EXTENDED RELEASE 50 MG PO (17:10)
[2023-12-21 21:54] LABS: Glucose - Point of Care 137 mg/dl (70-99)
[2023-12-21] MEDS: ELAVIL 10 MG PO (22:04)
[2023-12-22 03:00] VITALS: BP 99/57
[2023-12-22 05:36] LABS: Blood Urea Nitrogen 19 mg/dl (9-20); Calcium 9.1 mg/dl (8.4-10.2); Carbon Dioxide 25 mmol/L (22-30); Chloride 98 mmol/L (98-107); Estimated Creatinine Clearance 74 ml/min; Glucose 150 mg/dl (70-99); Potassium 4.5 mmol/L (3.5-5.1); Sodium 133 mmol/L (135-145); eGFR > 60.00
[2023-12-22 05:45] LABS: Hematocrit 38.2 % (39.0-52.0); Hemoglobin 12.8 g/dL (13.0-18.0); Mean Corp Hgb Conc. 33.5 g/dL (33.0-37.0); Mean Corpuscular Hgb 33.6 pg (27.0-31.0); Mean Corpuscular Volume 100.3 fL (80.0-94.0); Mean Platelet Volume 10.2 fL (7.4-10.4); Platelet Count 129 10^3/uL (130-400); Red Blood Cell Count 3.81 10^6/uL (4.70-6.10); Red Cell Dist. Width 15.3 % (11.5-14.5); White Blood Cell Count 11.7 10^3/uL (4.8-10.8)
[2023-12-22] MEDS: SYNTHROID 125 MCG PO (05:58)
[2023-12-22 06:00] VITALS: BMI 34.5
[2023-12-22 07:15] VITALS: BP 111/63
[2023-12-22 07:27] LABS: Absolute Neutrophils -Man Diff 3.7 10^3/uL (1.4-6.5); Band Neutrophils 0 % (0-3); Segmented Neutrophils 32 % (42-75)
[2023-12-22 07:31] LABS: Eosinophils 3 % (0-6); Lymphocytes 49 % (20-51); Monocytes 3 % (2-9)
[2023-12-22 07:32] LABS: Atypical Lymphocytes 13 %; Platelets Checked Yes
[2023-12-22 07:35] LABS: Total Cells Counted 100
[2023-12-22 07:36] LABS: Anisocytosis Occasional; Polychromasia Occasional
[2023-12-22 07:37] LABS: Stomatocytes Occasional
[2023-12-22 07:38] LABS: Glucose - Point of Care 158 mg/dl (70-99)
[2023-12-22] MEDS: NOVOLOG FLEXPEN-LOW RESISTANCE 1 UNITS SC (09:01)
[2023-12-22] MEDS: ZYLOPRIM 300 MG PO (09:02)
[2023-12-22] MEDS: TOPROL XL 50 MG PO (09:02)
[2023-12-22] MEDS: TRUSOPT 2% OPHTHALMIC SOLUTION 1 DROP RIGHT EYE ×2 (09:02→21:53)
[2023-12-22] MEDS: KCL 20 MEQ PO (09:03)
[2023-12-22] MEDS: CELEBREX 200 MG PO (09:03)
[2023-12-22] MEDS: ENTRESTO 24 MG/26 MG 1 TAB PO (09:03)
[2023-12-22] MEDS: FLOMAX 0.4 MG PO ×2 (09:03→21:52)
[2023-12-22] MEDS: TIKOSYN 250 MCG PO ×2 (09:03→21:52)
[2023-12-22] MEDS: LOW STRENGTH ASPIRIN 81 MG PO (09:04)
[2023-12-22] MEDS: LASIX 40 MG PO (09:05)
[2023-12-22 09:24] LABS: Normal RBC Morphology No
--- NOTE | 2023-12-22 10:25 | W.PN.HOSP.TC ---
Today's Communication/Plan
-
If Na remains stable after starting lasix and aldactone can dc tomorrow AM
Assessment / Plan
Assessment / Plan
Imaging
CXR
IMPRESSION:
No acute cardiopulmonary process.
Physical Exam
NAD, resting comfortably in bed
Scleral anicteric
Moist mucous membranes
No JVD
CTA bilateral
Normal S1-S2 2/6 murmur, irregular
Soft nontender nondistended bowel sounds active
No peripheral pitting edema, bilateral lower extremity chronic venous stasis changes
Moves extremities spontaneously
AAOx3
Assessment and Plan
Hyponatremia, concern for SIADH
-Sodium improving
-Fluid restrict
-Hold Farxiga indefinitely
-Repeat BMP in the a.m.
Diabetes (recent dx)
-A1c 7.5
-Outpatient PCP started SGLT2i
-Now presenting hyponatremic
-Does nto want to be on SGLT2i any further. I agree with this
-Outpatient endo follow up
--Accord Trial - N Engl J Med�2008;358:8844-2212 DOI: 10.1056/HVVErf6923990
---In the elderly population target A1c of less then 7 should be avoid as there is no improved Cardiovascular outcomes/mortalitiy benefit compared to A1c of less then 8 in the elderly population
---If anything there is a risk of increase hypoglycemic adverse events
--Will need to monitor BG as an outpatient, outpatient endo can eval if oral hypoglycemics such as DPP4i low dose could be considered
--Discuss with him at bedside and his daughter Drea who is a RN in same day surgery at that he should cut his daily fruit intake by 50-75%
-Allow for dietary modification
-Accucheck
-Nice Sugar Trial - N Engl J Med�2009;360:1989-3200 DOI: 10.1056/[id number]
--Inpatient BG goal 140-180
-CCDiet
-SSI low while inpatient
HFpEF, stage II diastolic dysfunction, EF 60%
-Euvolemic on exam
-Resume lasix at lower dose of 40mg BID
-Fluid restrict to 1500cc/daily
-Resume aldactone
-Continue Entresto, BB
HLD
-Continue statin and zetia
BPH
-Continue flomax
Hypothyroidism
-Continue levothyroxine
Gout
-Cotninue allopurinol
Persistent AFib
-Contine tikosyn, BB
-Not on AC
-S/p Watchman
Anticipated Discharge: 24 - 48 hours
Subjective/Interval History
-
Date of Service: December 22, 2023
No new complaints. No acute overnight events.
States he is feeling significantly better
Tells me that he eats a lot of fruits daily. Has 1/5 of a melon along with blueberries raspberries grape nuts
Objective Data
-
Labs:
Laboratory Results
12/22/23
04:40
WBC 11.7 H
Hgb 12.8 L
Hct 38.2 L
Plt Count 129 L
Sodium 133 L
Potassium 4.5
Chloride 98
Carbon Dioxide 25
BUN 19
Creatinine 0.8
Glucose 150 H
Calcium 9.1
Vital Signs:
Vital Signs
Temp Pulse Resp BP Pulse Ox
97.2 F 67 20 111/62 99
12/22/23 07:15 12/22/23 09:05 12/22/23 07:15 12/22/23 09:05 12/22/23 07:15
I&O
12/21/23 12/22/23 12/23/23
06:59 06:59 06:59
Intake Total 800 / 800 1080 / 1080
Output Total 1550 / 1550 1125 / 1125
Balance -750 / -750 -45 / -45
--- NOTE | 2023-12-22 10:42 | W.PN.CARDCBS ---
Today's Communication / Plan
-
Resume Lasix at a lower dose, 40 mg twice daily and would maintain Farxiga
Impression / Plan
-
PCP: Earl Macario MD
CDY: [place] Bryson MD
Impression:
Admitted with generalized weakness 12/20/23
Hyponatremia, possible SIADH
Chronic HFpEF
Paroxysmal Afib
A paced with PACs on admission ECG
Chronic Tikosyn therapy
Not chronically anticoagulated due to Watchman in place and ocular bleeding
s/p Watchman implant 06/13/21 with subsequent discovery of 3mm leak
s/p Medtronic PPM implant 2017
h/o prostate CA, s/p prostatectomy and radiation 2006
CAD s/p CABG x5 1995
HTN
HLD
HOWARD/CPAP
BPH
Hypothyroidism
Pulmonary nodules
RANDALL 09/21/2021: EF 55 to 60%, mild to moderate mitral stenosis with moderate MR, watchman in place without device related thrombus and there is a small 3 mm leak that is best seen at 135 and 0 degrees
Echo 08/08/23: EF 45 to 50%, severe hypokinesis of distal apical inferior wall and apical yepez, mild concentric LVH, stage II diastolic dysfunction, moderately enlarged RV, moderately dilated left atrium, severely dilated right atrium, moderate to
severe MAC, mild to moderate MS with mean gradients across the valve 5 mmHg, mild MR, aortic sclerosis, mild to moderate TR, PAP 40 to 5 to 50 mmHg, dilated aortic root at 4.2 cm
Echo 11/29/23: EF 60%, mild MS peak/mean 12/8 mmHg, mild to moderate MR
Plan:
Admitted primarily with generalized weakness 12/20/23 and found to have hyponatremia, possible SIADH
He describes that soon after SGLT2 inhibitor was recently added he noted increased diuresis and marked increase in thirst for which he drank large amounts of free water.
Lasix held since admission, 1 L NS was administered, and oral fluid restricted.
Sodium has improved from 129->133. Additionally he is symptomatically improved.
Likely can resume Lasix soon but would resume at a lower dose. As an outpatient was on 80 mg twice daily, would consider resuming at 40 mg twice daily and maintain Farxiga
Has history of paroxysmal atrial fibrillation. He has been maintaining sinus rhythm, atrial paced. Stable corrected QT interval. Continue current dose of dofetilide
Patient with known 3 mm leak around Watchman. Decision making process involving the patient has resulted in patient deciding to avoid oral anticoagulation.
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 Cont aspirin 81 mg daily. Cardiology previously confirmed appropriateness of aspirin with patient's primary tactical debriefer on 08/09/23
EF was down a bit at 45-50% by echo 08/08/23. EF improved to 60% by repeat echo 11/29/23.
Maintain outpatient doses of atorvastatin 40 mg daily and Zetia 10 mg daily
Maintain outpatient doses of Toprol XL 50 mg BID and Entresto 24/26 mg BID have been continued
Total time 52 min
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
Subjective
Date of Service: December 22, 2023
No chest pain shortness of breath or palpitations. He tells me he does feel stronger today
Objective
Labs:
12/22/23 04:40
12/22/23 04:40
Labs
Hgb 12.8 g/dL (13.0-18.0) L 12/22/23 04:40
Hct 38.2 % (39.0-52.0) L 12/22/23 04:40
Plt Count 129 10^3/uL (130-400) L 12/22/23 04:40
Sodium 133 mmol/L (135-145) L 12/22/23 04:40
Potassium 4.5 mmol/L (3.5-5.1) 12/22/23 04:40
BUN 19 mg/dl (9-20) 12/22/23 04:40
Creatinine 0.8 mg/dL (0.7-1.3) 12/22/23 04:40
Glucose 150 mg/dl (70-99) H 12/22/23 04:40
Vital Signs and I&O:
Vital Signs
Temp Pulse Resp BP Pulse Ox
97.2 F 67 20 111/62 99
12/22/23 07:15 12/22/23 09:05 12/22/23 07:15 12/22/23 09:05 12/22/23 07:15
Vital Signs
Temp Pulse Resp BP Pulse Ox
97.2 F 67 20 111/62 99
12/22/23 07:15 12/22/23 09:05 12/22/23 07:15 12/22/23 09:05 12/22/23 07:15
Intake & Output
12/20/23 12/21/23 12/22/23 12/23/23
06:59 06:59 06:59 06:59
Intake Total 800 / 800 1080 / 1080
Output Total 1550 / 1550 1125 / 1125
Balance -750 / -750 -45 / -45
Physical Exam
Physical Exam
Elderly gentleman sitting at the side of the bed no distress.
Regular rate and rhythm with normal S1 and S2, no S3 no S4 degree 1/6 apical holosystolic murmur no rubs. PMI is normally placed.
Lungs are clear to auscultation bilaterally without wheezes rales or rhonchi.
Extremities show +1 pretibial edema bilaterally
[2023-12-22 11:15] VITALS: BP 91/51
--- NOTE | 2023-12-22 11:35 | CM ---
Met with pt at bedside
Pt reports he lives in a 3 story home with a vehicle care specialist - 03/09; 2 steps to enter, 1 step down to living area. Has elevator access to living area
Pt is visually impaired. Performs ADL's with set-up, ambulates with rolling walker. Assist with game bird farmer. Has family support
DME - rolling walker, single point cane, shower bench, shower rails
SNF - [facility] in past
HH - [facility] in past
Has ride home with family member
PCP - Earl Macario
Pharm - [facility]
Seen by PT - recommending home PT vs SNF
Discussed with pt - declining at this time
Plan - anticipate home no needs vs VN when medically stable
[2023-12-22 11:54] LABS: Glucose - Point of Care 204 mg/dl (70-99)
[2023-12-22] MEDS: NOVOLOG FLEXPEN-LOW RESISTANCE 2 UNITS SC (12:28)
[2023-12-22 15:15] VITALS: BP 100/62
[2023-12-22 16:25] LABS: Glucose - Point of Care 129 mg/dl (70-99)
[2023-12-22] MEDS: LASIX PO (16:47)
[2023-12-22] MEDS: NOVOLOG FLEXPEN-LOW RESISTANCE SC (16:48)
[2023-12-22] MEDS: LOVENOX 40 MG SC (17:53)
[2023-12-22] MEDS: ZETIA 10 MG PO (17:53)
[2023-12-22] MEDS: LIPITOR 40 MG PO (17:53)
[2023-12-22] MEDS: MYRBETRIQ EXTENDED RELEASE 50 MG PO (17:53)
[2023-12-22 19:18] VITALS: BP 92/63
[2023-12-22] MEDS: TOPROL XL PO (21:50)
[2023-12-22] MEDS: ENTRESTO 24 MG/26 MG PO (21:50)
[2023-12-22 21:51] LABS: Glucose - Point of Care 144 mg/dl (70-99)
[2023-12-22] MEDS: ELAVIL 10 MG PO (21:54)
[2023-12-22 23:35] VITALS: BP 100/59
[2023-12-23] VITALS (8 sets, daily range): BP systolic 92–127; BP diastolic 52–90; PULSE 82; O2SAT 99; BMI 34.7
[2023-12-23] MEDS: SYNTHROID 125 MCG PO (05:11)
[2023-12-23 05:49] LABS: Hematocrit 42.8 % (39.0-52.0); Hemoglobin 14.1 g/dL (13.0-18.0); Mean Corp Hgb Conc. 32.9 g/dL (33.0-37.0); Mean Corpuscular Hgb 33.3 pg (27.0-31.0); Mean Corpuscular Volume 100.9 fL (80.0-94.0); Mean Platelet Volume 10.1 fL (7.4-10.4); Platelet Count 145 10^3/uL (130-400); Red Blood Cell Count 4.24 10^6/uL (4.70-6.10); Red Cell Dist. Width 15.3 % (11.5-14.5); White Blood Cell Count 12.3 10^3/uL (4.8-10.8)
[2023-12-23 06:04] LABS: Blood Urea Nitrogen 21 mg/dl (9-20); Calcium 9.5 mg/dl (8.4-10.2); Carbon Dioxide 23 mmol/L (22-30); Chloride 98 mmol/L (98-107); Estimated Creatinine Clearance 73 ml/min; Glucose 165 mg/dl (70-99); Potassium 4.9 mmol/L (3.5-5.1); Sodium 133 mmol/L (135-145); eGFR > 60.00
[2023-12-23 07:44] LABS: Glucose - Point of Care 178 mg/dl (70-99)
[2023-12-23 08:12] LABS: Band Neutrophils 0 % (0-3); Segmented Neutrophils 41 % (42-75)
[2023-12-23 08:13] LABS: Atypical Lymphocytes 6 %; Eosinophils 1 % (0-6); Lymphocytes 41 % (20-51); Monocytes 11 % (2-9); Normal RBC Morphology Yes; Platelets Checked Yes; Smudge Cells Slight; Total Cells Counted 100
[2023-12-23] MEDS: CELEBREX 200 MG PO (08:32)
[2023-12-23] MEDS: LOW STRENGTH ASPIRIN 81 MG PO (08:32)
[2023-12-23] MEDS: NOVOLOG FLEXPEN-LOW RESISTANCE 1 UNITS SC ×2 (08:32→13:35)
[2023-12-23] MEDS: FLOMAX 0.4 MG PO ×2 (08:32→20:37)
[2023-12-23] MEDS: ZYLOPRIM 300 MG PO (08:32)
[2023-12-23] MEDS: KCL 20 MEQ PO (08:32)
[2023-12-23] MEDS: TIKOSYN 250 MCG PO ×2 (08:33→20:37)
[2023-12-23] MEDS: ENTRESTO 24 MG/26 MG 1 TAB PO (08:33)
[2023-12-23] MEDS: TOPROL XL 50 MG PO (08:33)
[2023-12-23] MEDS: LASIX 40 MG PO (08:33)
[2023-12-23] MEDS: TRUSOPT 2% OPHTHALMIC SOLUTION 1 DROP RIGHT EYE ×2 (08:34→20:37)
--- NOTE | 2023-12-23 09:33 | W.PN.HOSP.TC ---
Addendum entered and electronically signed by Felix Plascencia MD 12/23/23 15:23:
Seen and examined by me independently in collaboration with the site medical director Ayden.
Lab data and imaging data reviewed.
Addendum as below :
Patient admitted with generalized weakness which he says has improved but still does not feel all that strong. He still feels weak. Associated with this symptom was mental fogginess. He does not feel confused but he does not feel right in his
mind. He is alert and oriented x 3. He was able to give me the details of his diagnosis, recent medication introduction and changes in treatment plans by his PCP and accounts payable payroll coordinator. The details he came he seems to be accurate.
He said his PCP started on Farxiga for diabetes and prior to that he was not on any medication. After that initiation he started to have symptoms of weakness and was found to have associated dehydration. He was on Lasix of 80 mg twice a day . Has
mild chronic hyponatremia but his sodium dropped to 129 as he was drinking more free water because of feeling thirsty with Farxiga. His sodium has improved with IV fluids and holding Farxiga and Lasix.
Improving weakness but not at baseline per pt.
His atrial rates today are higher and may be contributing to his weakness. Control heart rate and follow. His beta-ashwini got reintroduced today. Follow the heart rates on telemetry.
Leukocytosis noted-differential shows more monocytosis. Decrease the neutrophils but he has a lot of atypical lymphocytes. Clinically no foci of infection symptoms. No fevers. Looks nontoxic. Suspect probably myeloproliferative. Consult
hematology. According to daughter he was told his white count was elevated mildly before. Check a Monospot. No clinical symptoms and signs of infectious mononucleosis-no sore throat, fever, cervical lymph nodes, nor abnormal LFTs.
CW PT/OT tx
DW daughter Drea
Total time spent on today's encounter was 52 minutes which included time spent in counseling the patient/family regarding diagnosis and treatment plan as listed above, goals of care, and symptom management. Case was discussed with nursing staff,
specialists, and care coordinators/case management. All labs and imaging personally reviewed by me. Remainder the time spent in detailed review of previous records, lab data, imaging, and other medical provider documentation.
Original Note:
Today's Communication/Plan
-
Initiate metformin p.o.
PT OT evaluation
Anticipate discharge tomorrow, coordination with case management
Continue home medications
Assessment / Plan
Assessment / Plan
Assessment: 88-year-old male past medical history of hypertension, hyperlipidemia, chronic heart failure preserved ejection fraction, persistent A-fib status post watchman, diabetes type 2, BPH, legally blind presents for weakness and dehydration
after outpatient initiation of Farxiga while on concurrent Lasix.
Plan:
# Chronic hyponatremia
-Sodium stable, appears chronically low
-Fluid restrict
-Currently holding Farxiga
-Daily BMP
#Pio-nnpghzl-oiowbolyh diabetes mellitus type 2
-A1c 7.5
-Outpatient PCP started SGLT2i
-Now presenting hyponatremic with volume depletion
-Currently holding Farxiga
-Initiate metformin 500 p.o.
-Outpatient endo/PCP follow up
-Inpatient BG goal 140-180
-CCDiet
-SSI low while inpatient
-Accord Trial - N Engl J Med�2008;358:7887-4853 DOI: 10.1056/ZIFUsx4022974
-In the elderly population target A1c of less then 7 should be avoid as there is no improved Cardiovascular outcomes/mortality benefit compared to A1c of less then 8 in the elderly population
#HFpEF, stage II diastolic dysfunction, EF 60%
-Restarted Lasix at lower dose of 40 p.o. twice daily
-Fluid restrict to 1500cc/daily
-Resume aldactone
-Continue Entresto, BB if pressures allow
#HLD
-Continue statin and zetia
#BPH
-Continue flomax
#Hypothyroidism
-Continue levothyroxine
#Gout
-Cotninue allopurinol
# Persistent AFib
-Contine tikosyn, BB
-Not on AC
-S/p Watchman
Diet: Diabetic
CODE STATUS: DNR
DVT prophylaxis: Lovenox 40 subcu
Anticipated Discharge: Within 24 hours
Subjective/Interval History
-
Date of Service: December 23, 2023
Patient currently states feeling weak
Objective Data
-
Labs:
Laboratory Results
12/23/23
05:20
WBC 12.3 H
Hgb 14.1
Hct 42.8
Plt Count 145
Sodium 133 L
Potassium 4.9
Chloride 98
Carbon Dioxide 23
BUN 21 H
Creatinine 0.8
Glucose 165 H
Calcium 9.5
Vital Signs:
Vital Signs
Temp Pulse Resp BP Pulse Ox
98.4 F 110 17 113/74 99
12/23/23 07:05 12/23/23 08:33 12/23/23 07:05 12/23/23 08:33 12/23/23 07:05
I&O
12/22/23 12/23/23 12/24/23
06:59 06:59 06:59
Intake Total 1080 / 1080 564 / 564
Output Total 1125 / 1125 1150 / 1150
Balance -45 / -45 -586 / -586
Review of Systems
-
History Source: Patient
Constitutional: Reports Weakness
EENT: Reports Decreased Vision
Respiratory: Reports No Symptoms
Cardiac: Reports No Symptoms
Abdomen/GI: Reports No Symptoms
Physical Exam
-
General: Well Developed, Well Nourished, No Apparent Distress and Comfortable
Respiratory: Clear to Auscultation
Cardiac: S1/S2 and Irregular Rhythm
GI: Soft, Nontender and Nondistended
Musculoskeletal: No Edema
Skin: Warm and Dry
Neuro: Awake, Alert, Oriented and AO x 3
Psych: Calm and Intact Judgement/Insight
Data Reviewed
-
Labs: Labs Reviewed by me and Discussed with Physician
--- NOTE | 2023-12-23 10:04 | PN.DE.MGMTRT ---
Insulin Management
- -
12/23/2023: Diabetes management Consult
7 year old male who presented to the ED on 12/19 for evaluation of generalized weakness and noted for Hyponatremia.
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 A1C 7.55, Pt is a poor historian and is unable to report his OP diabetes regimen. per chart review,
he was taking Farxiga 10mg daily prior to admission.
Called and spoke to pt's Dtr-Drea, pt was started on Farxiga on 11/19, and that since starting Farxiga pt has been getting progressively weaker with severe GI sx including N/V and upset stomach, which she is attributing to the Farxiga. Pt and Dtr
state that they do not want the Farxiga continued.
12/21 Glucose stable, premeal 129 to 204, fasting 165(V) this AM. Cr 0.8, eGFR>60
Current A1C is ideal for advanced age. Will avoid tight glucose control to avoid risk of hypoglycemia.
Start Januvia 100mg daily. Cont low corrective insulin with meals. Avoid Metformin due to severe GI SE from Farxiga, will likely experience same SE from MFM.
Pt has time analysis clerk wound care nurse at home to check his blood sugars and adm all his meds.
Per pt's Dtr, she is going to call Endo and schedule an appointment for f/u
Diabetes History
- -
Type of Diabetes: 2 requiring insulin
Pre-Admission Diabetes Regimen
12/23/23
05:20
Creatinine 0.8
Lab Results
Hemoglobin A1c 7.5 % (4.0-5.6) H 12/21/23 04:25
Insulin Pump Settings
IP Diabetes Regimen
12/22/23 12/22/23 12/22/23
11:53 16:24 21:50
Glucose
POC Glucose 204 H 129 H 144 H
12/23/23 12/23/23
05:20 07:42
Glucose 165 H
POC Glucose 178 H
Meal type: Dinner
Meal type: Lunch
Meal type: Breakfast
Amount consumed: 85%
Amount consumed: 100%
Amount consumed: 100%
Patient Education
[2023-12-23 11:48] LABS: Glucose - Point of Care 191 mg/dl (70-99)
[2023-12-23] MEDS: JANUVIA 100 MG PO (13:35)
--- NOTE | 2023-12-23 13:35 | CM ---
Patient seen at bedside.
PT recommend home PT vs. SNF
Would like [facility] - has had in past
Patient has caregivers at home.
Referral to [facility] placed in [facility] - liaison notified.
LM with daughter Drea
PLAN: Home, with VN
--- NOTE | 2023-12-23 14:17 | W.PN.CARDCBS ---
Addendum entered and electronically signed by Neelam Talbert DO 12/23/23 14:36:
I saw and examined the patient.
The Steam Boiler Fireman's note was reviewed and I agree with the note.
Comment: Patient seen and examined. He is out of bed to chair and feeling well. Denies chest pain, shortness of breath or palpitations.
GEN: NAD. AAOx3
HEENT: MMM
LUNGS: No audible wheeze
CV: Regular. Pacemaker in place. Positive S1-S2. 03/19 SM
ABD: ND + BS
EXT: +1 edema bilaterally
Plan:
-Admitted primarily with generalized weakness 12/20/23 and found to have hyponatremia, possible SIADH
-Volume status has improved and sodium is stable
-Resumed Lasix at lower dose, 40 mg twice daily.
-33 oz daily fluid restriction advised
-Paroxysmal atrial fibrillation, currently in atrial fibrillation
- atrial paced.
- Cont outpatient dose of Tikosyn 250 mcg q 12 hours.
-Patient with known 3 mm leak around Watchman. Patient with watchman in place and would not be interested in ever restarting OAC if needed for RANDALL/CV etc. due to h/o eye bleeds and vision loss.
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
recurrent retinal detachments.
-Cont aspirin 81 mg daily. Cardiology previously confirmed appropriateness of aspirin with patient's primary business education instructor on 08/09/23
-EF was down a bit at 45-50% by echo 08/08/23. EF improved to 60% by repeat echo 11/29/23.
-Outpatient doses of atorvastatin 40 mg daily and Zetia 10 mg daily continued.
-Outpatient doses of Toprol XL 50 mg BID and Entresto 24/26 mg BID have been continued
Stable for discharge from a cardiovascular perspective
Outpatient cardiac follow-up to be arranged
Original Note:
Today's Communication / Plan
-
Would cont lower dose Lasix 40 mg PO BID
Impression / Plan
-
PCP: Earl Macario MD
CDY: [place] Bryson MD
Impression:
Admitted with generalized weakness 12/20/23
Hyponatremia, possible SIADH
Chronic HFpEF
Paroxysmal Afib
A paced with PACs on admission ECG
Chronic Tikosyn therapy
Not chronically anticoagulated due to Watchman in place and ocular bleeding
s/p Watchman implant 06/13/21 with subsequent discovery of 3mm leak
s/p Medtr[employer] PPM implant 2017
h/o prostate CA, s/p prostatectomy and radiation 2006
CAD s/p CABG x5 1995
HTN
HLD
HOWARD/CPAP
BPH
Hypothyroidism
Pulmonary nodules
RANDALL 09/21/2021: EF 55 to 60%, mild to moderate mitral stenosis with moderate MR, watchman in place without device related thrombus and there is a small 3 mm leak that is best seen at 135 and 0 degrees
Echo 08/08/23: EF 45 to 50%, severe hypokinesis of distal apical inferior wall and apical yepez, mild concentric LVH, stage II diastolic dysfunction, moderately enlarged RV, moderately dilated left atrium, severely dilated right atrium, moderate to
severe MAC, mild to moderate MS with mean gradients across the valve 5 mmHg, mild MR, aortic sclerosis, mild to moderate TR, PAP 40 to 5 to 50 mmHg, dilated aortic root at 4.2 cm
Echo 11/29/23: EF 60%, mild MS peak/mean 12/8 mmHg, mild to moderate MR
Plan:
-Admitted primarily with generalized weakness 12/20/23 and found to have hyponatremia, possible SIADH, that seems to have started within a month of starting Farxiga 10 mg daily. Patient with increased thirst and drinking Thermos' of water nightly per
his report. Lasix held on admission and 1 L NS given.
-33 oz daily fluid restriction placed as well
-Lasix 40 mg PO BID restarted 12/22/23. Follow labs
-Patient with h/o paroxysmal Afib. He has been maintaining sinus rhythm, atrial paced. Cont outpatient dose of Tikosyn 250 mcg q 12 hours.
-Patient with known 3 mm leak around Watchman. Patient with watchman in place and would not be interested in ever restarting OAC if needed for RANDALL/CV etc. due to h/o eye bleeds and vision loss.
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
recurrent retinal detachments.
-Cont aspirin 81 mg daily. Cardiology previously confirmed appropriateness of aspirin with patient's primary business education instructor on 08/09/23
-EF was down a bit at 45-50% by echo 08/08/23. EF improved to 60% by repeat echo 11/29/23.
-Outpatient doses of atorvastatin 40 mg daily and Zetia 10 mg daily continued. Recheck CVE
-Outpatient doses of Toprol XL 50 mg BID and Entresto 24/26 mg BID have been continued
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
Subjective
Date of Service: December 23, 2023
Feels well, says he is going home later today
Objective
Labs:
12/23/23 05:20
12/23/23 05:20
Labs
Hgb 14.1 g/dL (13.0-18.0) 12/23/23 05:20
Hct 42.8 % (39.0-52.0) 12/23/23 05:20
Plt Count 145 10^3/uL (130-400) 12/23/23 05:20
Sodium 133 mmol/L (135-145) L 12/23/23 05:20
Potassium 4.9 mmol/L (3.5-5.1) 12/23/23 05:20
BUN 21 mg/dl (9-20) H 12/23/23 05:20
Creatinine 0.8 mg/dL (0.7-1.3) 12/23/23 05:20
Glucose 165 mg/dl (70-99) H 12/23/23 05:20
Vital Signs and I&O:
Vital Signs
Temp Pulse Resp BP Pulse Ox
97.8 F 88 17 100/62 96
12/23/23 11:00 12/23/23 11:00 12/23/23 11:00 12/23/23 11:00 12/23/23 11:00
Vital Signs
Temp Pulse Resp BP Pulse Ox
97.8 F 88 17 100/62 96
12/23/23 11:00 12/23/23 11:00 12/23/23 11:00 12/23/23 11:00 12/23/23 11:00
Intake & Output
12/21/23 12/22/23 12/23/23 12/24/23
06:59 06:59 06:59 06:59
Intake Total 800 / 800 1080 / 1080 564 / 564
Output Total 1550 / 1550 1125 / 1125 1150 / 1150
Balance -750 / -750 -45 / -45 -586 / -586
Physical Exam
Physical Exam
GEN: NAD. AAOx3
HEENT: MMM
LUNGS: No audible wheeze
CV: Afib on tele.
ABD: ND
NEURO: Gross non-focal
SKIN: No rash
--- NOTE | 2023-12-23 14:25 | VNURNOTE ---
Home Health Liaison spoke with daughter Drea to discuss [facility] nurse/therapy, visits, schedule and homebound status. She is agreeable and understands that visits at home will be 2-3 x per week to assess and teach medical management. She is aware that
[facility] will contact them for start of care in 1-2 days after discharge from . [facility] referral completed in [facility] by CM.
--- NOTE | 2023-12-23 15:36 | CON.ONC ---
Impression
Impression
Variable degrees of leukocytosis
Unexplained weakness and confusion
Recent retinal blood vessel occlusion
Plan
Plan
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 I will send flow cytometry. However, I doubt of any of the hematologic abnormalities that we are seeing would account for his current symptoms. Will repeat ESR.
Patient History
History of Present Illness
Consult from Dr. Plascencia regarding abnormal differential
This 88-year-old man was admitted with weakness and some degree of mental fogginess. He relates all of his symptoms to when he was started on Farxiga because his A1c was going up. He is somewhat of a poor historian otherwise. He does have a
history of atrial fibrillation and heart failure, as well as diabetes, but he is unable to tell me exactly which medications he is taking for it. He denies any prior hematologic problems, but has been told that his white count may run a little bit
high. He denies any fevers or night sweats. He is unsure whether he is lost or gained weight recently. He has had no recent infections.
Past-Medical/Surgical History
As outlined in HPI.
Social history: He lives with full-time help at home. He does not smoke. Family history is noncontributory.
Patient Medication
�Medication �Instructions �Recorded �Confirmed �Last Taken �Type
allopurinol 300 mg tablet 300 mg PO DAILY Gout 01/21/21 12/20/23 12/20/23 History
amitriptyline 10 mg tablet 10 mg PO HS Mental Health/Anxiety 01/21/21 12/20/23 12/19/23 History
atorvastatin 40 mg tablet 40 mg PO QPM High cholesterol 01/21/21 12/20/23 12/19/23 History
celecoxib 200 mg capsule 200 mg PO DAILY Pain 01/21/21 12/20/23 12/20/23 History
dofetilide 250 mcg capsule 250 mcg PO BID Arrhythmia 01/21/21 12/20/23 12/20/23 History
ezetimibe 10 mg tablet 10 mg PO QPM High cholesterol 01/21/21 12/20/23 12/19/23 History
metoprolol succinate 50 mg 50 mg PO BID Blood pressure 01/21/21 12/20/23 12/20/23 History
tablet,extended release 24 hr
tamsulosin 0.4 mg capsule 0.4 mg PO BID Urinary issue 01/21/21 12/20/23 12/20/23 History
mirabegron 50 mg tablet,extended 50 mg PO QPM Urinary issue 05/31/21 12/20/23 12/19/23 History
release 24 hr (Myrbetriq)
bisacodyl 5 mg tablet,delayed 10 mg PO DAILYPRN PRN constipation 08/07/23 12/20/23 08/06/23 History
release (Dulcolax (bisacodyl))
aspirin 81 mg chewable tablet 81 mg PO DAILY Blood clot 08/12/23 12/20/23 12/20/23 Rx
prevention/tx #0 tabs
carboxymethylcellulose sodium 0.5 1 drp BOTH EYES QIDPRN PRN dry eyes 12/20/23 12/20/23 Unknown History
% eye drops (Refresh Tears)
cholecalciferol (vitamin D3) 50 50 mcg PO DAILY Supplement 12/20/23 12/20/23 12/20/23 History
mcg (2,000 unit) tablet (Vitamin
D3)
dapagliflozin propanediol 10 mg 10 mg PO DAILY Diabetes 12/20/23 12/20/23 12/20/23 History
tablet (Farxiga)
dorzolamide 2 % eye drops 1 drp RIGHT EYE BID Eye Condition 12/20/23 12/20/23 12/20/23 History
furosemide 80 mg tablet 80 mg PO BID@0800,1400 Fluid 12/20/23 12/20/23 12/20/23 History
retention/Swelling
levothyroxine 125 mcg tablet 125 mcg PO DAILY Thyroid 12/20/23 12/20/23 12/20/23 History
potassium chloride 20 mEq 20 meq PO DAILY Supplement 1112/20/23 12/20/23 History
tablet,extended release
sacubitril 24 mg-valsartan 26 mg 1 tab PO BID Heart Failure 12/20/23 12/20/23 12/20/23 History
tablet (Entresto)
spironolactone 25 mg tablet 25 mg PO DAILY Fluid 12/20/23 12/20/23 12/20/23 History
Retention/Swelling
Active Medications
Generic Name Dose Route Start Last Admin
Trade Name Freq PRN Reason Stop Dose Admin
Acetaminophen 650 mg 12/20/23 18:52
Acetaminophen 325 Mg Tablet PO 01/17/24 18:51
Q4HPRN PRN
mild pain/FOSTER/temp> 100.4F
Allopurinol 300 mg 12/21/23 08:00 12/23/23 08:32
Allopurinol 300 Mg Tablet PO 01/18/24 07:59 300 mg
DAILY LAURYN Administration
Amitriptyline HCl 10 mg 12/20/23 22:00 12/22/23 21:54
Amitriptyline 10 Mg Tablet PO 01/17/24 21:59 10 mg
HS LAURYN Administration
Aspirin 81 mg 12/21/23 08:00 12/23/23 08:32
Aspirin 81 Mg Chewable Tablet PO 01/18/24 07:59 81 mg
DAILY LAURYN Administration
Atorvastatin Calcium 40 mg 12/20/23 18:52 12/22/23 17:53
Atorvastatin (Lipitor) 40 Mg Tablet PO 01/17/24 18:51 40 mg
QPM LAURYN Administration
Bisacodyl 10 mg 12/20/23 18:52
Bisacodyl 10 Mg Rectal Suppository RECTAL 01/17/24 18:51
[id number] PRN
constipation
Carboxymethylcellulose Sodium 1 drops 12/20/23 19:10
Carboxymethylcellulose Ophth Gel (Celluvisc) Droperette BOTH EYES 01/17/24 19:09
QIDPRN PRN
dry eyes
Celecoxib 200 mg 12/21/23 08:00 12/23/23 08:32
Celecoxib 200 Mg Capsule PO 01/18/24 07:59 200 mg
DAILY LAURYN Administration
Dextrose 12.5 grams 12/20/23 18:52
Dextrose 50% (0.5 Grams/Ml) 50 Ml Syringe IV 01/17/24 18:51
[id number] PRN
hypoglycemia
Protocol
Dofetilide 250 mcg 12/20/23 20:00 12/23/23 08:33
Dofetilide 250 Mcg Capsule PO 01/17/24 19:59 250 mcg
BID LAURYN Administration
Dorzolamide HCl 0 drop 12/20/23 20:00 12/23/23 08:34
Dorzolamide 2% (Ophthalmic Solution) 10 Ml Bottle RIGHT EYE 01/17/24 19:59 1 drop
BID LAURYN Administration
Ezetimibe 10 mg 12/20/23 18:52 12/22/23 17:53
Ezetimibe (Zetia) 10 Mg Tablet PO 01/17/24 18:51 10 mg
QPM LAURYN Administration
Enoxaparin Sodium 40 mg 12/20/23 18:52 12/22/23 17:53
Enoxaparin Sodium 40 Mg/0.4 Ml Syringe SC 01/17/24 18:51 40 mg
QPM LAURYN Administration
Furosemide 40 mg 12/22/23 09:00 12/23/23 08:33
Furosemide 40 Mg Tablet PO 01/19/24 08:59 40 mg
BID AT 0800,1600 LAURYN Administration
Glucagon 1 mg 12/20/23 18:52
Glucagon 1 Mg Vial IM 01/17/24 18:51
PRN PRN
hypoglycemia
Protocol
Insulin Aspart 0 units 12/21/23 07:30 12/23/23 13:35
Insulin Aspart Low Resistance 300 Units/3 Ml Pen.Injctr SC 01/18/24 07:29 1 units
AC LAURYN Administration
Protocol
Levothyroxine Sodium 125 mcg 12/21/23 06:00 12/23/23 05:11
Levothyroxine 125 Mcg Tablet PO 01/18/24 05:59 125 mcg
DAILY @ 0600 LAURYN Administration
Metformin HCl 500 mg 12/23/23 14:00
Metformin 500 Mg Regular Release Tablet PO 01/20/24 13:59
DAILY LAURYN
Metoprolol Succinate 50 mg 12/20/23 20:00 12/23/23 08:33
Metoprolol 50 Mg Extended Release Tablet PO 01/17/24 19:59 50 mg
BID LAURYN Administration
Mirabegron 50 mg 12/20/23 19:15 12/22/23 17:53
Mirabegron Extended Release 25 Mg Tab (Non Form) PO 01/17/24 19:14 50 mg
QPM LAURYN Administration
Polyethylene Glycol 17 grams 12/20/23 18:52
Polyethylene Glycol Powder 17 Grams Packet PO 01/17/24 18:51
DAILYPRN PRN
constipation
Potassium Chloride 20 meq 12/21/23 08:00 12/23/23 08:32
Potassium Chloride 20 Meq Extended Release Tablet PO 01/18/24 07:59 20 meq
DAILY LAURYN Administration
Sacubitril/Valsartan 1 tab 12/20/23 20:00 12/23/23 08:33
Sacubitril 24 Mg/Valsartan 26 Mg (Entresto) Tab PO 01/17/24 19:59 1 tab
BID LAURYN Administration
Senna/Docusate Sodium 1 tablet 12/20/23 18:52
Docusate W/Senna (Yasmine-Colace) Tablet PO 01/17/24 18:51
BIDPRN PRN
constipation
Sitagliptin Phosphate 100 mg 12/23/23 12:00 12/23/23 13:35
Sitagliptin (Januvia) 100 Mg Tablet PO 01/20/24 11:59 100 mg
DAILY LAURYN Administration
Sodium Chloride 0 flush 12/20/23 19:00 12/21/23 03:55
Sodium Chloride 0.9% (Flush) Syringe IV 01/17/24 18:59 2 flush
PER PROTOCOL LAURYN Administration
Spironolactone 25 mg 12/23/23 15:00
Spironolactone 25 Mg Tablet PO 01/20/24 14:59
DAILY LAURYN
Tamsulosin HCl 0.4 mg 12/20/23 20:00 12/23/23 08:32
Tamsulosin 0.4 Mg Capsule PO 01/17/24 19:59 0.4 mg
BID LAURYN Administration
Review of Systems
-
All Other Systems: Reviewed and Negative
Physical Exam
-
Physical examination shows the patient to be in no acute distress.
HEENT exam is unremarkable.
There are no palpable nodes.
Chest is clear.
The heart is regular with no murmur or gallop.
The abdomen is soft and nontender with no organomegaly or masses.
Extremities are unremarkable.
Neurologic is grossly intact.
Labs
Lab Results
WBC 12.3 10^3/uL (4.8-10.8) H 12/23/23 05:20
RBC 4.24 10^6/uL (4.70-6.10) L 12/23/23 05:20
Hgb 14.1 g/dL (13.0-18.0) 12/23/23 05:20
Hct 42.8 % (39.0-52.0) 12/23/23 05:20
MCV 100.9 fL (80.0-94.0) H 12/23/23 05:20
MCH 33.3 pg (27.0-31.0) H 12/23/23 05:20
MCHC 32.9 g/dL (33.0-37.0) L 12/23/23 05:20
RDW 15.3 % (11.5-14.5) H 12/23/23 05:20
Plt Count 145 10^3/uL (130-400) 12/23/23 05:20
MPV 10.1 fL (7.4-10.4) 12/23/23 05:20
Abs Immat Gran (auto) 0.0 10^3/uL (0-0.05) 12/20/23 14:48
Absolute Neuts (auto) 6.0 10^3/uL (1.4-6.5) 12/20/23 14:48
Absolute Lymphs (auto) 3.6 10^3/uL (1.2-3.4) H 12/20/23 14:48
Absolute Monos (auto) 0.9 10^3/uL (0.1-0.6) H 12/20/23 14:48
Absolute Eos (auto) 0.1 10^3/uL (0-0.7) 12/20/23 14:48
Absolute Basos (auto) 0.0 10^3/uL (0-0.2) 12/20/23 14:48
Immature Gran % 0.3 % (0-0.5) 12/20/23 14:48
Neutrophils % 56.7 % (42.2-75.2) 12/20/23 14:48
Lymphocytes % 33.6 % (20.5-51.1) 12/20/23 14:48
Monocytes % 8.0 % (1.7-9.3) 12/20/23 14:48
Eosinophils % 1.1 % (0-6) 12/20/23 14:48
Basophils % 0.3 % (0-2) 12/20/23 14:48
Creatinine 0.8 mg/dL (0.7-1.3) 12/23/23 05:20
Vital Signs
Vital Signs
Temp Pulse Resp BP Pulse Ox
97.8 F 88 17 100/62 96
12/23/23 11:00 12/23/23 11:00 12/23/23 11:00 12/23/23 11:00 12/23/23 11:00
[2023-12-23] MEDS: GLUCOPHAGE 500 MG PO (16:00)
[2023-12-23] MEDS: ALDACTONE 25 MG PO (16:19)
[2023-12-23] MEDS: LASIX PO (16:20)
[2023-12-23 16:36] LABS: Monotest Negative (Negative)
[2023-12-23 16:40] LABS: Glucose - Point of Care 141 mg/dl (70-99)
[2023-12-23] MEDS: NOVOLOG FLEXPEN-LOW RESISTANCE SC (17:05)
[2023-12-23] MEDS: MYRBETRIQ EXTENDED RELEASE 50 MG PO (17:46)
[2023-12-23] MEDS: ZETIA 10 MG PO (17:46)
[2023-12-23] MEDS: LOVENOX 40 MG SC (17:46)
[2023-12-23] MEDS: LIPITOR 40 MG PO (17:46)
[2023-12-23] MEDS: ENTRESTO 24 MG/26 MG PO (20:35)
[2023-12-23] MEDS: TOPROL XL PO (20:35)
[2023-12-23 21:19] LABS: Glucose - Point of Care 139 mg/dl (70-99)
[2023-12-23] MEDS: ELAVIL 10 MG PO (22:58)
[2023-12-24 03:17] VITALS: BP 117/72
[2023-12-24] MEDS: SYNTHROID 125 MCG PO (05:26)
[2023-12-24 06:34] LABS: % Basophils 0.5 % (0-2); % Eosinophils 1.8 % (0-6); % Immature Granulocytes 0.4 % (0-0.5); % Lymphocytes 47.3 % (20.5-51.1); % Monocytes 8.1 % (1.7-9.3); % Neutrophils 41.9 % (42.2-75.2); Absolute Basophils 0.1 10^3/uL (0-0.2); Absolute Eosinophils 0.2 10^3/uL (0-0.7); Absolute Lymphocytes 4.9 10^3/uL (1.2-3.4); Absolute Monocytes 0.9 10^3/uL (0.1-0.6); Absolute Neutrophils 4.4 10^3/uL (1.4-6.5); Hematocrit 39.8 % (39.0-52.0); Hemoglobin 13.3 g/dL (13.0-18.0); Mean Corp Hgb Conc. 33.4 g/dL (33.0-37.0); Mean Corpuscular Volume 101.8 fL (80.0-94.0); Mean Platelet Volume 10.6 fL (7.4-10.4); Nucleated Red Blood Cells % 0 % (-); Platelet Count 132 10^3/uL (130-400); Red Blood Cell Count 3.91 10^6/uL (4.70-6.10); Red Cell Dist. Width 15.1 % (11.5-14.5); White Blood Cell Count 10.4 10^3/uL (4.8-10.8)
[2023-12-24 06:39] LABS: Erythrocyte Sed Rate 10 mm/hour (0-20)
[2023-12-24 06:54] LABS: Blood Urea Nitrogen 21 mg/dl (9-20); Carbon Dioxide 24 mmol/L (22-30); Chloride 96 mmol/L (98-107); Estimated Creatinine Clearance 73 ml/min; Glucose 144 mg/dl (70-99); Potassium 4.4 mmol/L (3.5-5.1); Sodium 131 mmol/L (135-145); eGFR > 60.00
--- NOTE | 2023-12-24 07:18 | PN.DE.MGMTRT ---
Insulin Management
- -
12/24/2023: Diabetes management Consult Follow up
Patient admitted 12/19 c/o of generalized weakness and noted for Hyponatremia.
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 A1C 7.5%, Pt is a poor historian and is unable to report his OP diabetes regimen. per chart review,
he was taking Farxiga 10mg daily prior to admission.
12/22 Premeal glucose range 199 to 191, Cr 0.8, eGFR>60.
12/23 Will continue Januvia 100 mg daily with low corrective insulin with meals. Dr Ramirez has discontinued Januvia and started metformin. Will defer to Dr. Ramirez.
Current A1C is ideal for advanced age. Will avoid tight glucose control to avoid risk of hypoglycemia.
Pt has timekeeper reproductive healthcare assistant at home to check his blood sugars and adm all his meds.
Per pt's Dtr, she is going to call Endo and schedule an appointment for f/u
Diabetes History
- -
Type of Diabetes: 2
Pre-Admission Diabetes Regimen
12/24/23
05:28
Creatinine 0.8
Lab Results
Hemoglobin A1c 7.5 % (4.0-5.6) H 12/21/23 04:25
Insulin Pump Settings
IP Diabetes Regimen
12/23/23 12/23/23 12/23/23
07:42 11:44 16:38
Glucose
POC Glucose 178 H 191 H 141 H
12/23/23 12/24/23
21:17 05:28
Glucose 144 H
POC Glucose 139 H
Meal type: Dinner
Meal type: Lunch
Meal type: Breakfast
Amount consumed: 100%
Amount consumed: 100%
Amount consumed: 100%
Patient Education
[2023-12-24 08:00] VITALS: BP 117/69
[2023-12-24 08:03] LABS: Glucose - Point of Care 138 mg/dl (70-99)
[2023-12-24] MEDS: NOVOLOG FLEXPEN-LOW RESISTANCE SC (08:11)
[2023-12-24] MEDS: LOW STRENGTH ASPIRIN 81 MG PO (08:16)
[2023-12-24] MEDS: CELEBREX 200 MG PO (08:16)
[2023-12-24] MEDS: ZYLOPRIM 300 MG PO (08:17)
[2023-12-24] MEDS: KCL 20 MEQ PO (08:17)
[2023-12-24] MEDS: GLUCOPHAGE 500 MG PO (08:17)
[2023-12-24] MEDS: ALDACTONE 25 MG PO (08:17)
[2023-12-24] MEDS: TIKOSYN 250 MCG PO (08:17)
[2023-12-24] MEDS: FLOMAX 0.4 MG PO (08:17)
[2023-12-24] MEDS: LASIX 40 MG PO (08:18)
[2023-12-24] MEDS: ENTRESTO 24 MG/26 MG 1 TAB PO (08:18)
[2023-12-24] MEDS: TOPROL XL 50 MG PO (08:18)
[2023-12-24] MEDS: TRUSOPT 2% OPHTHALMIC SOLUTION 1 DROP RIGHT EYE (08:19)
--- NOTE | 2023-12-24 08:37 | W.PN.CARDCBS ---
Addendum entered and electronically signed by Andrew Ortiz MD 12/24/23 12:35:
I saw and examined the patient.
The Assisted Living Associate's note was reviewed and I agree with the note.
Comment:
GEN: No distress, awake, Ox3
HEENT: supple, anicteric, mmm
LUNGS: CTA, no wheezes/rales
CV: Reg, S1/S2, 1/6 syst LSB, no gallop
ABD: soft, BS+, NT/ND
EXT: +1 edema
NEURO: Gross non-focal
SKIN: chronic stasis changes
Plan:
Sodium is overall stable at 131. His blood pressure is on the low side. We again discussed fluid restriction.
Will discharge on Lasix 40 mg p.o. twice daily, Toprol 50 mg p.o. twice daily, Entresto 24/26 p.o. twice daily and will hold spironolactone for now.
He denies any dizziness or lightheadedness. Will reassess in several weeks in the office.
Okay for discharge
Addendum entered and electronically signed by Tracy Haney PA-C 12/24/23 12:29:
Cont lasix 40 mg PO BID, Toprol XL 50 mg BID and Entresto 24/26 mg BID. Will stop spironolactone for now and can restart when we see him in the office in 2 weeks if BP has improved. Overall EF is improved compared to July.
Original Note:
Today's Communication / Plan
-
Cont Lasix 40 mg PO BID
Cardiology f/u arranged
Impression / Plan
-
PCP: Earl Macario MD
CDY: [place] Bryson MD
Impression:
Admitted with generalized weakness 12/20/23
Hyponatremia, possible SIADH
Chronic HFpEF
Paroxysmal Afib
A paced with PACs on admission ECG
Chronic Tikosyn therapy
Not chronically anticoagulated due to Watchman in place and ocular bleeding
s/p Watchman implant 06/13/21 with subsequent discovery of 3mm leak
s/p [employer] PPM implant 2017
h/o prostate CA, s/p prostatectomy and radiation 2006
CAD s/p CABG x5 1995
HTN
HLD
HOWARD/CPAP
BPH
Hypothyroidism
Pulmonary nodules
RANDALL 09/21/2021: EF 55 to 60%, mild to moderate mitral stenosis with moderate MR, watchman in place without device related thrombus and there is a small 3 mm leak that is best seen at 135 and 0 degrees
Echo 08/08/23: EF 45 to 50%, severe hypokinesis of distal apical inferior wall and apical yepez, mild concentric LVH, stage II diastolic dysfunction, moderately enlarged RV, moderately dilated left atrium, severely dilated right atrium, moderate to
severe MAC, mild to moderate MS with mean gradients across the valve 5 mmHg, mild MR, aortic sclerosis, mild to moderate TR, PAP 40 to 5 to 50 mmHg, dilated aortic root at 4.2 cm
Echo 11/29/23: EF 60%, mild MS peak/mean 12/8 mmHg, mild to moderate MR
Plan:
-Sodium down a bit to 131 on 12/24/23. Patient reports that he will not be able to follow fluid restriction at home. Tried to explain SIADH and dietary sodium and fluid restriction.
-Patient with increased thirst and drinking Thermos' of water nightly per his report. Lasix held on admission and 1 L NS given.
-Farxiga has been stopped. Admitted primarily with generalized weakness 12/20/23 and found to have hyponatremia, possible SIADH, that seems to have started within a month of starting Farxiga 10 mg daily.
-Lasix 40 mg PO BID restarted 12/22/23.
-Patient with h/o paroxysmal Afib. He has been maintaining sinus rhythm, atrial paced. Cont outpatient dose of Tikosyn 250 mcg q 12 hours.
-Patient with known 3 mm leak around Watchman. Patient with watchman in place and would not be interested in ever restarting OAC if needed for RANDALL/CV etc. due to h/o eye bleeds and vision loss.
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
recurrent retinal detachments.
-Cont aspirin 81 mg daily. Cardiology previously confirmed appropriateness of aspirin with patient's primary manager molecular on 08/09/23
-EF was down a bit at 45-50% by echo 08/08/23. EF improved to 60% by repeat echo 11/29/23.
-Outpatient doses of atorvastatin 40 mg daily and Zetia 10 mg daily continued. Recheck CVE
-Outpatient doses of Toprol XL 50 mg BID and Entresto 24/26 mg BID have been continued
-Cardiology follow up arranged. Called and updated patient's daughter, Drea, on 12/23/23.
Progress Note - Stock Layer
Subjective
Date of Service: December 24, 2023
Feels well, frustrated at fluid restriction
Objective
Labs:
12/24/23 05:28
12/24/23 05:28
Labs
Hgb 13.3 g/dL (13.0-18.0) 12/24/23 05:28
Hct 39.8 % (39.0-52.0) 12/24/23 05:28
Plt Count 132 10^3/uL (130-400) 12/24/23 05:28
Sodium 131 mmol/L (135-145) L 12/24/23 05:28
Potassium 4.4 mmol/L (3.5-5.1) 12/24/23 05:28
BUN 21 mg/dl (9-20) H 12/24/23 05:28
Creatinine 0.8 mg/dL (0.7-1.3) 12/24/23 05:28
Glucose 144 mg/dl (70-99) H 12/24/23 05:28
Vital Signs and I&O:
Vital Signs
Temp Pulse Resp BP Pulse Ox
97.7 F 80 17 116/66 98
12/24/23 03:17 12/24/23 08:18 12/24/23 03:17 12/24/23 08:18 12/24/23 03:17
Vital Signs
Temp Pulse Resp BP Pulse Ox
97.7 F 80 17 116/66 98
12/24/23 03:17 12/24/23 08:18 12/24/23 03:17 12/24/23 08:18 12/24/23 03:17
Intake & Output
12/22/23 12/23/23 12/24/23 12/25/23
06:59 06:59 06:59 06:59
Intake Total 1080 / 1080 564 / 564 720 / 720
Output Total 1125 / 1125 1150 / 1150 675 / 675
Balance -45 / -45 -586 / -586 45 / 45
Physical Exam
Physical Exam
GEN: NAD. AAOx3
HEENT: MMM
LUNGS: No audible wheeze
CV: Paced on tele
ABD: ND
NEURO: Gross non-focal
SKIN: No rash
--- NOTE | 2023-12-24 08:49 | PN.CDI ---
CDI
- -
CDI:
Physician Documentation Request
Admit Date: 12/20/23 17:35
Dear Doctor Temo/Resident,
Please review the following and provide your response in the progress notes.
Clinical Indicators:
Pt admitted with Hyponatremia suspected SIADH
There is potentially conflicting documentation in the record regarding the type of afib
Documented per cardiology consult and notes, ' Paroxysmal Afib
A paced with PACs on admission ECG Chronic Tikosyn therapy Not chronically anticoagulated due to Watchman in place and ocular bleeding...'
Documented per H&P and Progress notes 12-20-10,' Persistent afib...'
If possible, please provide further specificity regarding atrial fibrillation, such as:
Paroxysmal atrial fibrillation - terminates spontaneously or with intervention within 7 days of onset
Persistent atrial fibrillation - episodes of continuous AF that last more than 7 days and do not self-terminate
Other - please specify
Use of terms such as suspected, likely, concern for, or probable (associated with a specific diagnosis that is being evaluated, monitored, or treated as if it exists) are acceptable and can be coded in the inpatient setting, when documented at the
time of discharge.
Thank you,
Meka Langston RN
CDI Specialist
[facility]
Please use your independent medical judgment in providing your response.
--- NOTE | 2023-12-24 10:28 | W.PN.HOSP.TC ---
Addendum entered and electronically signed by Felix Plascencia MD 12/24/23 13:57:
Seen and examined by me independently in collaboration with the medical assistant float Ayden.
Lab data and imaging data reviewed.
Addendum as below :
Resolved weakness. Feels better. His complaint is sneezing and runny nose since yesterday. No sore throat. No fever or chills. No cough or shortness of breath. Denies seasonal allergies.
Denies chest pain or palpitations.
No nausea vomiting.
Chest clear. On room air. Blood pressure softer after reintroducing his GDMT medication. Denies any dizziness.
Improved BUN.
Suspect presentation probably secondary to Farxiga on higher doses of diuretics causing dehydration. Farxiga was initiated for diabetes control. Hold further.
On GDMT medication for chronic diastolic heart failure which is compensated. With softer blood pressure discussed with cardiology-dose of Lasix decreased, and spironolactone is going to be kept on hold. Follow-up with cardiology 01/07.
With regards to diabetes his hemoglobin A1c is 7.5 and I suspect oral metformin should be suffice for glycemic control. No indication for Januvia.
Appreciate hematology input regarding abnormal white count with lymphocytosis and monocytosis. Peripheral flow cytometry requested which is pending at the time of discharge. Follow-up with hematology as an outpatient.
Chronic hyponatremia -stable sodium. 131 today. Continue fluid restriction and diuretics.
Discussed with daughter regarding diagnosis, medication changes and follow-up plan.
Total time of discharge 32 minutes
Original Note:
Today's Communication/Plan
-
Discharge home
Hold spironolactone until seen by cardiology
Assessment / Plan
Assessment / Plan
Assessment: 88-year-old male past medical history of hypertension, hyperlipidemia, chronic heart failure preserved ejection fraction, persistent A-fib status post watchman, diabetes type 2, BPH, legally blind presents for weakness and dehydration
after outpatient initiation of Farxiga while on concurrent Lasix.
Plan:
#Weakness/dehydration
Resolved
Likely secondary to polypharmacy with Farxiga and Lasix
Discontinue Farxiga indefinitely, reduce Lasix dose p.o. by half
Patient will follow-up with cardiology/PCP/endocrinology for definitive medication adjustments
# Chronic hyponatremia
-Sodium stable, appears chronically low
-Fluid restrict
-Discontinue Farxiga indefinitely
-Daily BMP
#Kri-rzjjrcd-bvvqanqwo diabetes mellitus type 2
-A1c 7.5
-Outpatient PCP started SGLT2i
-Now presenting hyponatremic with volume depletion
-Discontinue Farxiga indefinitely
-Initiate metformin 500 p.o.
-Diabetic nurse practitioner initiated Januvia
-Discontinue Januvia indefinitely
-Outpatient endo/PCP follow up
-Inpatient BG goal 140-180
-CCDiet
-SSI low while inpatient
-Accord Trial - N Engl J Med�2008;358:4870-7801 DOI: 10.1056/AWWGia1926379
-In the elderly population target A1c of less then 7 should be avoid as there is no improved Cardiovascular outcomes/mortality benefit compared to A1c of less then 8 in the elderly population
#HFpEF, stage II diastolic dysfunction, EF 60%
-Restarted Lasix at lower dose of 40 p.o. twice daily
-Fluid restriction
-Will hold Aldactone due to soft pressures while on GDMT, patient will resume once seen outpatient by cardiology
-Continue Entresto, BB if pressures allow
#HLD
-Continue statin and zetia
#BPH
-Continue flomax
#Hypothyroidism
-Continue levothyroxine
#Gout
-Cotninue allopurinol
# Persistent AFib
-Contine tikosyn, BB
-Not on AC
-S/p Watchman
Diet: Diabetic
CODE STATUS: DNR
DVT prophylaxis: Lovenox 40 subcu
Anticipated Discharge: Today
Subjective/Interval History
-
Date of Service: December 24, 2023
pt reports resolution of weakness, feeling much better
Objective Data
-
Labs:
Laboratory Results
12/24/23
05:28
WBC 10.4
Hgb 13.3
Hct 39.8
Plt Count 132
Sodium 131 L
Potassium 4.4
Chloride 96 L
Carbon Dioxide 24
BUN 21 H
Creatinine 0.8
Glucose 144 H
Calcium 9.0
Vital Signs:
Vital Signs
Temp Pulse Resp BP Pulse Ox
98.1 F 80 18 116/66 99
12/24/23 08:00 12/24/23 08:18 12/24/23 08:00 12/24/23 08:18 12/24/23 08:00
I&O
12/23/23 12/24/23 12/25/23
06:59 06:59 06:59
Intake Total 564 / 564 720 / 720
Output Total 1150 / 1150 675 / 675
Balance -586 / -586 45 / 45
Review of Systems
-
History Source: Patient
Constitutional: Reports No Symptoms; Denies Weakness
Respiratory: Reports No Symptoms
Cardiac: Reports No Symptoms
Abdomen/GI: Reports No Symptoms
Neuro: Reports No Symptoms; Denies Dizzy or Weakness
Physical Exam
-
General: Well Developed, Well Nourished, No Apparent Distress and Conversant
Respiratory: Clear to Auscultation
Cardiac: S1/S2 and Irregular Rhythm
GI: Soft, Nontender and Nondistended
Musculoskeletal: No Edema and Other (venous stasis dermatitis on LLE)
Skin: Warm and Dry
Neuro: Awake, Alert, Oriented and AO x 3
Data Reviewed
-
Labs: Labs Reviewed by me and Discussed with Physician
--- NOTE | 2023-12-24 10:40 | CM ---
Patient seen at bedside.
IMM explained & signed. In chart
PLAN: home with [facility]
son-in-law to transport
[2023-12-24 11:33] LABS: Glucose - Point of Care 194 mg/dl (70-99)
[2023-12-24 12:00] VITALS: BP 82/53
[2023-12-24] MEDS: CLARITIN 10 MG PO (13:00)
[2023-12-24] MEDS: NOVOLOG FLEXPEN-LOW RESISTANCE 1 UNITS SC (13:43)
[2023-12-24 14:10] VITALS: BP 116/69
--- NOTE | 2023-12-24 14:56 | W.DCSUMMARY ---
Discharge Summary
Discharge Data
Date of Admission: 12/20/23
Date of Discharge: 12/24/23
-
Pending Results: Yes
Additional Pending Results:
Flow cytometry pending, will follow-up with hematology for results in 1 month
Hospital Course
Discharging Physician : Temo Ramirez
Disposition : Home
Primary care physician : Dr. Earl Macario
Principal Discharge diagnosis : Acute dehydration/weakness
Chronic Discharge diagnosis : Hypertension, hyperlipidemia, heart failure preserved ejection fraction, persistent atrial fibrillation, diabetes mellitus type 2, benign prostatic hyperplasia, legally blind, left retinal detachment, right retinal
artery occlusion
Hospital Course : 88-year-old male was brought in by daughter for evaluation of generalized weakness. Approximately 2 weeks prior he was started on Farxiga by PCP for diabetes however he reports feeling weaker over time as well as endorsing nausea,
vomiting, upset stomach, drowsiness and dizziness. Of note patient was also taking Lasix 80 mg p.o. twice daily. In the ED patient was noted to be hyponatremic, he was given 1 L normal saline, cardiology was consulted and he was admitted. During
his stay it was determined that Farxiga in combination with Lasix was likely the reason for his dehydration due to excess diuresis. Cardiology evaluated the patient and determined that he likely was receiving too high of a dose of Lasix, his
outpatient regiment of Lasix was decreased from 80 twice daily to 40 twice daily by mouth. Hemoglobin A1c was checked and resulted 7.5, for his age he is considered at goal. However because we were discontinuing Farxiga due to dehydration/weakness
we initiated oral metformin at 500 mg p.o. Patient states having an outpatient repair operator who he will follow-up with after discharge regarding definitive management of diabetes medication. Cardiology slowly reintroduced all his GDMT, however
he was noted to becoming hypotensive on his home regiment. Decision was made to hold spironolactone until he can follow-up with cardiology on 01/08/2024 for a more definitive regiment of blood pressure and GDMT medications. Patient lives at home
with a full-time aide, did not want to go to physical rehab and has a daughter who works at [employer]. Conversation was had with daughter about management and who he should follow-up with. Of note patient was also found to have persistent
leukocytosis with 80% plus lymphocyte predominance. He did not have a fever and he had no source of known infection, hematology was consulted to evaluate for a possible chronic leukemia, flow cytometry was sent and results are currently pending.
Patient will follow-up with hematology for the results in 1 month. Medication adjustments include discontinuation of Farxiga, Lasix decrease from 80-40 twice daily p.o., holding spironolactone and initiation of metformin 500 p.o. daily. Patient
was discharged home with adjusted medication regiment and he will follow-up with cardiology, primary care physician, endocrinology and hematology.
Important imaging findings :
12/20/2023 chest x-ray, impression:
No acute cardiopulmonary process.
Procedure findings :
No procedures
Discharge Plan
-
Patient Disposition: Home (Routine Discharge)
Discharge Diagnosis/Procedures: dehydration secondary to Lasix and farxiga
Condition: Fair
Diet: Diabetic, Carb Controlled
Activity: As tolerated
Driving Restrictions: No driving
Bathing Restrictions: None
Activity Restrictions/Additional Instructions:
Follow up with your PCP within one week of discharge
Follow up with cardiology on 01/08/24
Follow up with hematology for results of your flow cytometry lab in approx one month
Follow-up with your outpatient repair operator for definitive management of your diabetes regiment
Referrals:
Anand Ya DO [Active] - in one month
Earl Macario MD [Family Provider] - in less than 1 week
Corey Bryson MD [Active] - 01/08/24 4:00 pm
Additional Discharge Medication Instructions: Changed Lasix to 40mg by mouth twice daily
Started metformin 500mg by mouth daily
Stopped Farxiga.
Holding spironolactone until 01/08/2024 until seen by cardiology who could make definitive medication adjustments
Prescriptions:
New
metformin 500 mg Tablet
500 mg PO DAILY Qty: 30 0RF
furosemide 40 mg Tablet
40 mg PO BID AT 0800,1600 Qty: 60 0RF
Continued
atorvastatin 40 MG tablet
40 mg PO QPM
dofetilide 250 MCG capsule
250 mcg PO BID
tamsulosin 0.4 MG capsule
0.4 mg PO BID
amitriptyline 10 MG tablet
10 mg PO HS
ezetimibe 10 MG tablet
10 mg PO QPM
celecoxib 200 MG capsule
200 mg PO DAILY
metoprolol succinate 50 MG tablet extended release 24 hr
50 mg PO BID
allopurinol 300 MG tablet
300 mg PO DAILY
mirabegron [Myrbetriq] 50 MG tablet extended release 24 hr
50 mg PO QPM
bisacodyl [Dulcolax (bisacodyl)] 5 mg Tablet,Delayed Release (Dr/Ec)
10 mg PO DAILYPRN PRN (Reason: constipation)
aspirin 81 mg Tablet,Chewable
81 mg PO DAILY Qty: 0 0RF
carboxymethylcellulose sodium [Refresh Tears] 0.5 % Drops
1 drp BOTH EYES QIDPRN PRN (Reason: dry eyes)
levothyroxine 125 mcg Tablet
125 mcg PO DAILY
dorzolamide 2 % Drops
1 drp RIGHT EYE BID
cholecalciferol (vitamin D3) [Vitamin D3] 50 mcg (2,000 unit) Tablet
50 mcg PO DAILY
potassium chloride 20 mEq Tablet Extended Release
20 meq PO DAILY
Entresto 24-26 mg Tablet
1 tab PO BID
Held
spironolactone 25 mg Tablet
25 mg PO DAILY
Hold Instructions: Resume on 01/08/24. Hold spironolactone until seen by cardiology for definitive medication adjustments
Discontinued
dapagliflozin propanediol [Farxiga] 10 mg Tablet
10 mg PO DAILY
furosemide 80 mg tablet
80 mg PO BID@0800,1400
Discharge Orders:
Discharge Patient (As Directed); Ordered 12/24/23
Ordered By: Valentín Ramirez
Discharge Date and Time
Print Language: YAKUT
[2023-12-26 14:46] LABS: Number Of Markers 36 markers; Source Blood
== END 2023-12-24 15:56 | disposition home health service (06) | DRG 644 ==
LOC: 2 NORTH 17:35
PROVIDERS: Emergency Medicine; Registered Nurse; ADMITTING PHYSICIAN Internal Medicine; ATTENDING PHYSICIAN Internal Medicine; CONSULT PHYSICIAN Internal Medicine Cardiovascular Disease; CONSULT PHYSICIAN Internal Medicine Hematology & Oncology; EMERGENCY PHYSICIAN Emergency Medicine; FAMILY PHYSICIAN Family Medicine
DX: E22.2 Syndrome of inappropriate secretion of antidiuretic hormone (principal); I48.19 Other persistent atrial fibrillation; M86.9 Osteomyelitis, unspecified; I50.32 Chronic diastolic (congestive) heart failure; Z11.52 Encounter for screening for COVID-19; Z95.0 Presence of cardiac pacemaker; E11.69 Type 2 diabetes mellitus with other specified complication; E11.649 Type 2 diabetes mellitus with hypoglycemia without coma; E11.51 Type 2 diabetes mellitus with diabetic peripheral angiopathy without gangrene; E03.9 Hypothyroidism, unspecified; I11.0 Hypertensive heart disease with heart failure; Z79.82 Long term (current) use of aspirin; E78.00 Pure hypercholesterolemia, unspecified; N40.0 Benign prostatic hyperplasia without lower urinary tract symptoms; M10.9 Gout, unspecified; Z66 Do not resuscitate; T50.1X5A Adverse effect of loop [high-ceiling] diuretics, initial encounter
CPT/HCPCS: 71046; 80048; 80053; 81003; 82962; 83036; 83690; 83930; 83935; 84300; 84443; 85025; 85652; 86308; 87070; 87502; 87811; 93005; 93288; 97162; 97530; 99285